=== PATIENT | female | born 1930 | race African-American/Black ===

== ENCOUNTER 2017-12-24 02:42 | Inpatient (IN) | payer MEDICARE, OTHER ==
[2017-12-24 03:17] LABS: pH, Arterial 7.16 (7.35-7.45)
[2017-12-24 03:18] LABS: Base Excess (BEa) -9.4 mEq/L (-2.0 to +3.0); CO2 Tension 54.6 mmHg (35.0-45.0); O2 Tension (PaO2) 393.2 mmHg (> 60.0)
[2017-12-24 03:19] LABS: Hemoglobin (Hb) 9.3 g/dL (12.0-16.0)
[2017-12-24 03:20] LABS: Analyzer IN Cardio ER; Calcium, Ionized 1.1 mmol/L (1.12-1.30); Puncture Site LRA
[2017-12-24 03:56] LABS: Eosinophils 14 % (0-10); Hemoglobin 8.7 g/dL (12.0-16.0); Lymphocytes 38 % (21-51); MDiff Complete? YES; Mean Corpuscular HGB CONC 30.3 g/dL (32.0-36.0); Mean Corpuscular Hemoglobin 27.1 pg (27.0-31.0); Mean Corpuscular Volume 89.2 fL (78.0-98.0); Mean Platelet Volume 8.4 fL (7.4-10.4); Monocytes 8 % (0-10); Neutrophil 38 % (42-75); Nucleated RBC 1 % (0); PLT Morphology Comment Appears Adequate; Platelet Count 208 thou/uL (130-400); RBC Distribution Width 15.9 % (11.5-14.5); Red Blood Cell (RBC) Count 3.23 mill/uL (4.20-5.40); White Blood Cell (WBC) Count 4.2 thou/uL (4.8-10.8)
[2017-12-24 03:57] LABS: ALT (SGPT) 31 U/L (8-55); AST (SGOT) 63 U/L (5-34); Albumin 3.3 g/dL (3.4-4.8); Alkaline Phosphatase 95 U/L (40-150); Anion Gap 11 mmol/L (10-20); BUN (Urea Nitrogen) 29 mg/dL (9.8-20.1); Bilirubin, Total 0.3 mg/dL (0.2-1.2); CK (CPK) 50 U/L (29-168); Calc. Creatinine Clearance 0 mL/min (70-130); Calcium 8.4 mg/dL (7.8-10.44); Carbon Dioxide 24 mmol/L (23-31); Chloride 113 mmol/L (98-107); Estimated GFR-MDRD 38; Globulin 2.6 g/dL (2.4-3.5); Glucose 218 mg/dL (83-110); Lipase 208 U/L (8-78); Potassium 5.3 mmol/L (3.5-5.1); Protein, Total 5.9 g/dL (6.0-8.3); Sodium 143 mmol/L (136-145)
[2017-12-24 04:01] LABS: Troponin I Less than 0.010 ng/mL (< 0.028)
[2017-12-24 05:46] LABS: Bilirubin Negative (Negative); Blood, Urine Negative (Negative); Clarity CLEAR (Clear); Glucose, Urine (Dipstick) 250 mg/dL (Negative); Leukocyte Negative (Negative); Nitrite Negative (Negative); Protein, Urine (Dipstick) 100 mg/dL (Neg-Trace); Specific Gravity, Urine 1.036 (1.002-1.036); Urobilinogen 0.2 mg/dL (0.2-1.0); pH, Urine 6.5 (5.0-9.0)
[2017-12-24 05:49] LABS: Bacteria/HPF None Seen HPF (None Seen); Hyaline Casts/LPF 4-6 HYALINE CAST LPF (0-3 Hyaline); Pathc Cast-AUWi Flag 0.72 (0-2.49); RBC/HPF 0-3 HPF (0-3)
[2017-12-24 05:53] LABS: Oval Fat Bodies/HPF None Seen HPF (None Seen); Renal Epithelial 0-3 HPF (0-3); Sperm/HPF None Seen HPF (None Seen); Transitional Epithelial 0-3 HPF (0-3); Trichomonas/HPF None Seen HPF (None Seen); Yeast-All Forms None Seen HPF (None Seen)
--- NOTE | 2017-12-24 07:20 | PDOC.FPRHP ---
- History of Present Illness Chief Complaint: dyspnea History of Present Illness: 87 yo AAF with PMH of COPD, HTN, HLD, CKD presents with dyspnea that started yesterday. Pt states she was at home with daughter, and daughter called ambulance. Pt felt nauseated and SOB, felt feverish. Pt denied headache, chest pain, palpitations, abdominal pain, or diarrhea. Pt admits to constipation. When ambulance arrived, pt O2 sat was 72 %. On arrival to ED, pt was satting 100 % and was transitioned to RA. She was tachycardic. She received 1 L NS, levaquin 750 mg, and aspirin 324 mg. - Allergies/Adverse Reactions Allergies Allergy/AdvReac Type Severity Reaction Status Date / Time No Known Allergies Allergy Verified 10/01/16 05:40 - Home Medications Medication Instructions Recorded Confirmed Type Ipratropium/Albuterol Sulfate 3 ml INH Q4H PRN 12/24/17 12/26/17 History [DuoNeb] Simvastatin [Zocor] 20 mg PO HS 12/24/17 12/26/17 History Albuterol Sulfate [Proair HFA] 2 puff INH BID 12/26/17 12/26/17 History Albuterol Sulfate [Ventolin Hfa] 8 gm IH QID PRN 12/26/17 12/26/17 History Docusate [Colace] 100 mg PO BID PRN 12/26/17 12/26/17 History Gabapentin 300 mg PO BID 12/26/17 12/26/17 History Lisinopril 10 mg PO DAILY 12/26/17 12/26/17 History buPROPion HCl [buPROPion HCl SR] 150 mg PO BID 12/26/17 12/26/17 History - History PMHx: CKD, HTN, COPD, osteoporosis, HLD, cataracts PSHx: none FHx: denied fam hx of cancer Social: current smoker, 35 PY history. Denied alcohol or drug use. - Review of Systems General: reports: fever/chills Eyes: reports: other (Poor vision due to catarrachts). denies: eye pain ENT: denies: nasal congestion, rhinorrhea Respiratory: reports: shortness of breath. denies: congestion Cardiovascular: denies: chest pain, palpitation, edema Gastrointestinal: reports: nausea, constipation. denies: vomiting, diarrhea, abdominal pain Skin: reports: lesions (dry spots on lower legs) Musculoskeletal: denies: pain Neurological: denies: numbness Psychological: denies: anxiety, depression - Vital signs BP 163/64, P 79, R 20, T 96.6, O2 sats 100% on RA. Wt 35 kg - Physical Exam Constitutional: NAD, awake, alert and oriented, other (cachectic) HEENT: normocephalic and atraumatic, PERRLA, other (poor dentition, dry mucous membranes) Neck: supple, no LAD Heart: RRR, normal S1/S2, no murmurs/rubs/gallops, pulses present, no edema Lungs: other (+ Retractions, fine crackles in lower lobes, poor air movement) Abdomen: soft, non-tender, bowel sounds present, no masses/distention Musculoskeletal: other (cacechtic) Neurological: CN II-XII intact Psychiatric: intact recent and remote memory FMR H&P: Results - Labs Result Diagrams: 12/26/17 05:08 12/26/17 05:08 Lab results: WBC 4.2 thou/uL (4.8-10.8) L 12/24/17 03:24 Hgb 8.7 g/dL (12.0-16.0) L 12/24/17 03:24 Hct 28.8 % (36.0-47.0) L 12/24/17 03:24 MCV 89.2 fL (78.0-98.0) 12/24/17 03:24 Plt Count 208 thou/uL (130-400) 12/24/17 03:24 ABG pH 7.16 (7.35-7.45) L* 12/24/17 03:10 ABG pCO2 54.6 mmHg (35.0-45.0) H 12/24/17 03:10 ABG pO2 393.2 mmHg (> 60.0) H 12/24/17 03:10 Sodium 143 mmol/L (136-145) 12/24/17 03:24 Potassium 5.3 mmol/L (3.5-5.1) H 12/24/17 03:24 Chloride 113 mmol/L (98-107) H 12/24/17 03:24 Carbon Dioxide 24 mmol/L (23-31) 12/24/17 03:24 BUN 29 mg/dL (9.8-20.1) H 12/24/17 03:24 Creatinine 1.57 mg/dL (0.6-1.1) H 12/24/17 03:24 Glucose 218 mg/dL (83-110) H 12/24/17 03:24 Lactic Acid 4.2 mmol/L (0.5-2.2) H* 12/24/17 03:23 Calcium 8.4 mg/dL (7.8-10.44) 12/24/17 03:24 Total Bilirubin 0.3 mg/dL (0.2-1.2) 12/24/17 03:24 AST 63 U/L (5-34) H 12/24/17 03:24 ALT 31 U/L (8-55) 12/24/17 03:24 Alkaline Phosphatase 95 U/L (40-150) 12/24/17 03:24 Creatine Kinase 50 U/L (29-168) 12/24/17 03:24 CK-MB (CK-2) 1.0 ng/mL (0-6.6) 12/24/17 03:24 B-Natriuretic Peptide 361.8 pg/mL (0-100) H 12/24/17 03:23 Serum Total Protein 5.9 g/dL (6.0-8.3) L 12/24/17 03:24 Albumin 3.3 g/dL (3.4-4.8) L 12/24/17 03:24 Lipase 208 U/L (8-78) H 12/24/17 03:24 Urine Ketones Negative mg/dL (Negative) 12/24/17 05:11 Urine Blood Negative (Negative) 12/24/17 05:11 Urine Nitrite Negative (Negative) 12/24/17 05:11 Ur Leukocyte Esterase Negative (Negative) 12/24/17 05:11 Urine RBC 0-3 HPF (0-3) 12/24/17 05:11 Urine WBC 4-6 HPF (0-3) H 12/24/17 05:11 Ur Squamous Epith Cells 7-10 HPF (0-3) H 12/24/17 05:11 Urine Bacteria None Seen HPF (None Seen) 12/24/17 05:11 - EKG Interpretation EKG: Tachycardia with PVCs FMR H&P: A/P - Plan 87 yo F with acute COPD exacerbation Acute COPD exacerbation -CXR neg, CTA shows emphysematous changes -ABG 7.16/54.6/393.2 -Started on duonebs q4 TAMAR -Levofloxacin 750 mg daily -PRN albuterol q2 hrs -prednisone 40 mg daily for 5 days Malnourished -Consult Nutrition -Diet- Consistent carbs -change per vaccine customer representative recommendations Tachycardia -EKG shows tachycardia and PVCs Elevated Lactic Acid -LA of 4.2 -Possibly due to hypoperfusion, no source of infection at this time (UA neg, CXR neg) -repeat LA @ 0730 Chronically Elevated Lipase -208 on admission -elevated prior (200s and 300s) -US abdomen negative, CTA read pending HTN -163/64 upon admisison -Start amlodipine 10 mg QD HLD -Continue pravastatin 20 mg QD CKD stage 3 -EGFR of 38 -Fluid resuscitation Hyperkalemia -May resolved with nebs -No peaked T-waves noted on EKG -Continue to monitor Constipation -senna Docusate Concern for DM -Blood sugar 218 on admission -Repeat accucheck today at noon Osteoporosis -Continue alendronate 5 mg daily code status: full code Kacy Jaffe, PGY-1 FMR H&P: Upper Level - Plan Date/Time: 12/24/17 1616 I, [], have evaluated this patient and agree with findings/plan as outlined by senior insight manager international resident. Pertinent changes/additions are listed here. Attending Addendum - Attending Addendum Date/Time: 12/26/17 1411 I personally evaluated the patient and discussed the management with Dr. Jaffe on 12/24/2017. I agree with the History, Examination, Assessment and Plan documented above with any addition or exceptions noted below.
[2017-12-24 07:33] LABS: Troponin I 0.078 ng/mL (< 0.028)
[2017-12-24] MEDS ORDERED: PROVENTIL INHALER 6.7 G (200 INHALATIONS) INH PRN (07:46)
[2017-12-24 07:59] LABS: Lactic Acid 1.1 mmol/L (0.5-2.2)
[2017-12-24] MEDS: Lactated Ringer's 1,000 ML IV SCH ×2 (08:27→20:18)
[2017-12-24] MEDS: Senokot S 8.6-50 MG TAB PO SCH ×2 (08:40→20:22)
[2017-12-24] MEDS: predniSONE 20 MG TAB PO SCH (08:40)
[2017-12-24] MEDS: Amlodipine 10 MG TAB PO SCH (08:41)
[2017-12-24 08:48] VITALS: BMI 14.1
[2017-12-24] MEDS ORDERED: Ondansetron HCl/PF 4 MG/2 ML Vial IVP PRN (09:17)
[2017-12-24] MEDS: Enoxaparin Sodium 40 MG/0.4 ML SYRINGE SC SCH (09:17)
[2017-12-24] MEDS ORDERED: Ondansetron ODT 4 MG TAB SL PRN (09:17)
--- NOTE | 2017-12-24 09:17 | RAD ---
PORTABLE CHEST: HISTORY: Dyspnea. COMPARISON: 11/06/16. FINDINGS: Lungs show hyperexpansion. Increased interstitial markings are seen bilaterally. No focal infiltrat e. Heart size is upper normal and stable. Aortic calcification is prominent. IMPRESSION: Chronic changes noted with hyperexpansion and increased interstitial markings. POS: [facility]
--- NOTE | 2017-12-24 10:02 | CT ---
PRELIMINARY REPORT/[facility]/EMERGENTY AFTER-HOURS PROCEDURE CT Angiography Chest With Intravenous Contrast EXAM DATE/TIME: 12/24/2017 4:10 AM CLINICAL HISTORY: 87 years old, female; Signs and symptoms; Dyspnea and shortness of breath; Patient HX: Er3; F85 prese nts via ems with dyspnea. Ems reports PT o2 sat was 72 on ra when they arrived. PT now at 100% on non rebreather TECHNIQUE: Axial computed tomographic angiography images of the chest with intravenous contrast using CT angiogr aphy protocol. MIP reconstructed images were created and reviewed. COMPARISON: No relevant prior studies available. FINDINGS: Pulmonary arteries: Normal. No pulmonary emboli. Aorta: Atherosclerotic aorta. Lungs: Severe emphysema. No evidence of pneumonia. Pleural space: Normal. No pneumothorax. No pleural effusion. Heart: Cardiomegaly. Mediastinum: Esophagus is unremarkable. Bones/joints: Unremarkable. No acute fracture. Soft tissues: Unremarkable. Lymph nodes: Unremarkable. No enlarged lymph nodes. Liver: Hepatic cysts. Gallbladder and bile ducts: Gallbladder is incompletely visualized; however, there is suggestion of c holelithiasis and possible pericholecystic fluid. Pancreas: Incompletely visualized 3.8 cm cyst between the inferior tail of pancreas in the anterior l eft kidney, incompletely visualized, potentially arising from either of these structures. Kidneys and ureters: Left renal cysts. IMPRESSION: 1. Severe emphysema. No evidence of pneumonia. 2. Gallbladder is incompletely visualized; however, there is suggestion of cholelithiasis and possibl e pericholecystic fluid. If there is clinical concern for possible cholecystitis, recommend ultrasoun d or IV contrast enhanced abdomen/pelvis CT. Thank you for allowing us to participate in the care of your patient. Dictated and Authenticated by: Max Burgos MD 12/24/2017 5:29 AM Central Time ([place] & [place]) FINAL REPORT CT PULMONARY ANGIOGRAM WITH IV CONTRAST AND 3D POSTPROCESSING: I agree with the preliminary report given by Dr. Max Burgos of [facility]. Cysts in the liver, left kidney, and pancreas are stable since exam of 10/01/16. POS: [facility]
[2017-12-24 10:46] LABS: Troponin I 0.075 ng/mL (< 0.028)
[2017-12-24 12:14] LABS: Analyzer IN Cardio OR
[2017-12-24 12:15] LABS: Actual Bicarbonate (HCO3v) 23 mEq/L (22-28); Base Excess -1.7 mEq/L (-2.0 to +3.0); Hemoglobin (Hb) 9.2 g/dL (11.7-16.1); pH (venous) 7.377 (7.32-7.43)
[2017-12-24 12:16] LABS: Chloride (ABG LAB) 106 mmol/L (98-106); Potassium - ABG Lab 4.7 mmol/L (3.70-5.30); Sodium 137.4 mmol/L (133-146)
[2017-12-24 12:17] LABS: Calcium, Ionized 1.09 mmol/L (1.16-1.32)
[2017-12-24 12:27] LABS: Glucose Accucheck Confirmation 118 mg/dl (83-110)
[2017-12-24] MEDS ORDERED: ISOVUE-370 76%-LOCM 1 ML ONE (14:53)
[2017-12-24 15:44] LABS: Troponin I 0.058 ng/mL (< 0.028)
[2017-12-24] MEDS: Pravastatin Sodium 20 MG TAB PO SCH (20:18)
[2017-12-25 05:39] LABS: #Lymphocytes 1.1 thou/uL (1.20-3.40); #Monocytes 0.6 thou/uL (0.11-0.59); %Basophils 0.4 % (0.0-1.0); %Eosinophils 0.5 % (0.0-10.0); %Lymphocytes 22.8 % (21.0-51.0); %Monocytes 13.1 % (0.0-10.0); %Neutrophils 63.1 % (42.0-75.0); Hemoglobin 7.9 g/dL (12.0-16.0); Mean Corpuscular HGB CONC 31.8 g/dL (32.0-36.0); Mean Corpuscular Hemoglobin 27.3 pg (27.0-31.0); Mean Corpuscular Volume 85.8 fL (78.0-98.0); Mean Platelet Volume 8.4 fL (7.4-10.4); Platelet Count 171 thou/uL (130-400); RBC Distribution Width 15.5 % (11.5-14.5); Red Blood Cell (RBC) Count 2.88 mill/uL (4.20-5.40); White Blood Cell (WBC) Count 4.8 thou/uL (4.8-10.8)
[2017-12-25 05:48] LABS: Anion Gap 12 mmol/L (10-20); BUN (Urea Nitrogen) 26 mg/dL (9.8-20.1); Calc. Creatinine Clearance 18 mL/min (70-130); Carbon Dioxide 23 mmol/L (23-31); Chloride 109 mmol/L (98-107); Estimated GFR-MDRD 45; Glucose 100 mg/dL (83-110); Potassium 3.9 mmol/L (3.5-5.1); Sodium 140 mmol/L (136-145)
[2017-12-25] MEDS: Amlodipine 10 MG TAB PO SCH (08:23)
[2017-12-25] MEDS: predniSONE 20 MG TAB PO SCH (08:23)
[2017-12-25] MEDS: Enoxaparin Sodium 40 MG/0.4 ML SYRINGE SC SCH (08:25)
[2017-12-25] MEDS: Lactated Ringer's 1,000 ML IV SCH (10:24)
[2017-12-25 13:38] LABS: Hemoglobin 9.4 g/dL (12.0-16.0)
--- NOTE | 2017-12-25 20:57 | PDOC.FM ---
- Subjective Subjective: Reported episode of tarry stools per nurse. Aside from that, denies feeling SOB , HORTON, weak. No other complaints. - Objective MAR Reviewed: Yes Vital Signs & Weight: Vital Signs (12 hours) Temp Pulse Resp BP Pulse Ox 12/25/17 18:29 98 16 98 12/25/17 15:40 98.0 F 96 18 137/64 94 L 12/25/17 14:31 86 16 12/25/17 11:47 93 30 H 12/25/17 11:10 97.7 F 91 16 156/70 H 96 Weight Admit Weight 39.8 kg Weight 38 kg I&O: 12/24/17 12/25/17 12/26/17 06:59 06:59 06:59 Intake Total 2140 Output Total 700 Balance 1440 Result Diagrams: 12/25/17 13:31 12/25/17 05:21 <Zari Mcclelland - Last Filed: 12/25/17 20:54> - Objective Vital Signs & Weight: Vital Signs (12 hours) Temp Pulse Resp BP BP Pulse Ox 12/26/17 13:12 98 16 12/26/17 09:25 150 H 30 H 126/60 96 12/26/17 09:03 84 163/72 H 12/26/17 08:10 97.8 F 84 18 163/72 H 97 12/26/17 08:00 97.8 F 84 18 12/26/17 07:36 97 12/26/17 07:34 93 12 12/26/17 03:30 98.9 F 83 16 151/72 H 93 L Weight Admit Weight 39.8 kg Weight 37.8 kg I&O: 12/25/17 12/26/17 12/27/17 06:59 06:59 06:59 Intake Total 2140 2260 Output Total 700 Balance 1440 2260 Result Diagrams: 12/26/17 05:08 12/26/17 05:08 <Christopher Martines - Last Filed: 12/26/17 14:07> Phys Exam - Physical Examination Constitutional: NAD cachectic appearing HEENT: sclera anicteric Neck: supple Respiratory: no wheezing decreased breath sounds b/l, no wheezing Gastrointestinal: soft, non-tender Musculoskeletal: no edema, pulses present Psychiatric: A&O x 3 Skin: no rash <Zari Mcclelland - Last Filed: 12/25/17 20:54> Dx/Plan (1) CKD (chronic kidney disease) stage 3, GFR 30-59 ml/min Code(s): N18.3 - CHRONIC KIDNEY DISEASE, STAGE 3 (MODERATE) Status: Acute (2) COPD exacerbation Code(s): J44.1 - CHRONIC OBSTRUCTIVE PULMONARY DISEASE W (ACUTE) EXACERBATION Status: Acute (3) HLD (hyperlipidemia) Code(s): E78.5 - HYPERLIPIDEMIA, UNSPECIFIED Status: Acute (4) HTN (hypertension) Code(s): I10 - ESSENTIAL (PRIMARY) HYPERTENSION Status: Acute - Plan Plan: 87 yo F with history of COPD here for acute COPD exacerbation 1. acute on chronic COPD exacerbation -Unsure of etiology, unable to extract information for medication usage at home -Continue duo nebs: space from q4 to q6 hrs and monitor how tolerates -Prednisone 40mg 2. Normocytic anemia 2/2 suspected GI bleed vs dilutional anemia -FOBT ordered due to reported tarry stools -Will repeat H/H at noon to see if stabilizes out -Currently patient asymptomatic and hemodynamically stable -Will consider transfusion if Hb <7 2. Malnourishment -Very low weight and BMI, lives at home with daughter -Seen by nutrition and will follow recs of Regular Diet + Ensure 3. HTN -Continue home meds 4. HLD -Continue home meds 5. CKD 3 -Continue to monitor, electrolytes and renal function stable 6. Osteoporosis -Continue home meds Diet: RD, ensure DVT ppx: Lovenox Plan discussed with Dr. Martines <Zari Mcclelland - Last Filed: 12/25/17 20:54> Attending Addendum - Attending Addendum Date/Time: 12/26/17 4719 I personally evaluated the patient and discussed the management with Dr. Mcclelland on 12/25/17. I agree with the History, Examination, Assessment and Plan documented above with any addition or exceptions noted below. <Christopher Martines - Last Filed: 12/26/17 14:07>
[2017-12-25] MEDS: Pravastatin Sodium 20 MG TAB PO SCH (21:31)
[2017-12-26] MEDS: Lactated Ringer's 1,000 ML IV SCH ×2 (02:30→12:53)
--- NOTE | 2017-12-26 05:28 | PDOC.FM ---
- Subjective Subjective: no acute events overnight. family expresses desire for home health. - Objective Vital Signs & Weight: Vital Signs (12 hours) Temp Pulse Resp BP Pulse Ox 12/26/17 03:30 98.9 F 83 16 151/72 H 93 L 12/26/17 00:00 74 18 97 12/25/17 23:00 98.8 F 92 20 155/67 H 93 L 12/25/17 19:50 98 F 96 20 128/68 96 12/25/17 18:29 98 16 98 Weight Admit Weight 39.8 kg Weight 37.8 kg I&O: 12/24/17 12/25/17 12/26/17 06:59 06:59 06:59 Intake Total 2140 1000 Output Total 700 Balance 1440 1000 Result Diagrams: 12/26/17 05:08 12/26/17 05:08 <Zari Mcclelland - Last Filed: 12/26/17 16:06> - Objective Vital Signs & Weight: Vital Signs (12 hours) Temp Pulse Pulse Pulse Resp BP BP 12/26/17 13:12 98 16 12/26/17 12:30 98.0 F 80 20 12/26/17 10:16 95 102 H 152/69 H 12/26/17 09:25 150 H 30 H 126/60 12/26/17 09:03 84 163/72 H 12/26/17 08:10 97.8 F 84 18 12/26/17 08:00 97.8 F 84 18 12/26/17 07:36 12/26/17 07:34 93 12 BP BP Pulse Ox 12/26/17 13:12 12/26/17 12:30 155/69 H 96 12/26/17 10:16 179/83 H 12/26/17 09:25 96 12/26/17 09:03 12/26/17 08:10 163/72 H 97 12/26/17 08:00 12/26/17 07:36 97 12/26/17 07:34 Weight Admit Weight 39.8 kg Weight 37.8 kg I&O: 12/25/17 12/26/17 12/27/17 06:59 06:59 06:59 Intake Total 2140 2260 Output Total 700 Balance 1440 2260 Result Diagrams: 12/26/17 05:08 12/26/17 05:08 <Vera Alfred - Last Filed: 12/26/17 16:39> Phys Exam - Physical Examination Constitutional: NAD Respiratory: no wheezing, no rales, no rhonchi, clear to auscultation bilateral decreased breath sounds Neurological: moves all 4 limbs Psychiatric: A&O x 3 <Zahra Mcclellande - Last Filed: 12/26/17 16:06> Dx/Plan (1) CKD (chronic kidney disease) stage 3, GFR 30-59 ml/min Code(s): N18.3 - CHRONIC KIDNEY DISEASE, STAGE 3 (MODERATE) Status: Acute (2) COPD exacerbation Code(s): J44.1 - CHRONIC OBSTRUCTIVE PULMONARY DISEASE W (ACUTE) EXACERBATION Status: Acute (3) HLD (hyperlipidemia) Code(s): E78.5 - HYPERLIPIDEMIA, UNSPECIFIED Status: Acute (4) HTN (hypertension) Code(s): I10 - ESSENTIAL (PRIMARY) HYPERTENSION Status: Acute - Plan Plan: 87 yo F with history of COPD here for acute COPD exacerbation 1. acute on chronic COPD exacerbation -Tolerating duo nebs q6hr, non-hypoxic on room air. Recommended target oxygen for COPD patients 88-92%, pt at 93% -Continue prednisone 40mg to 5 day completion -Continue levaquin to 5 day completion, will reducd to 500mg q48 hour for d/c dosage due to low creatinine clearance and body weight 2. Normocytic anemia 2/2 dilutional anemia -Repeat H/H showed improvement back to baseline. Acute anemia most like 2/2 to dilutional anemia-despite receiving low fluid rate at 75cc, very malnourished and small body habitus (BMI 13.5) -FOBT pending since pt. hasn't had BM 2. Malnourishment -Very low weight and BMI, lives at home with daughter -Continue nutrition recs with regular diet & ensure -Continue LR @75 -Follow up case management recs, patient could benefit from home health 3. HTN -BPs ranging around 150s, <150 rx age appropriate goal, will add lisinopril 5mg daily to discharge medications -Continue home meds 4. HLD -Continue home meds 5. CKD 3 -Continue to monitor, electrolytes and renal function stable 6. Osteoporosis -Continue home meds Diet: RD, ensure DVT ppx: Lovenox Status: PT saw her, able to ambulate recommended walking assist program. Dispo: Discharge to home today. F/u with home health Plan discussed with Dr. Alfred <Zari Mcclelland - Last Filed: 12/26/17 16:06> Attending Addendum - Attending Addendum Date/Time: 12/26/17 5359 I personally evaluated the patient and discussed the management with Dr. Mcclelland. I agree with the History, Examination, Assessment and Plan documented above with any addition or exceptions noted below. Pt is feeling better. Hemoglobin has stabilized. She will be discharged home and f/u with PCP. <Vera Alfred - Last Filed: 12/26/17 16:39>
[2017-12-26 05:36] LABS: #Lymphocytes 1.1 thou/uL (1.20-3.40); #Monocytes 0.8 thou/uL (0.11-0.59); #Neutrophils 4.1 thou/uL (1.40-6.50); %Basophils 0.2 % (0.0-1.0); %Eosinophils 0.3 % (0.0-10.0); %Lymphocytes 18.5 % (21.0-51.0); %Monocytes 12.4 % (0.0-10.0); %Neutrophils 68.6 % (42.0-75.0); Hemoglobin 8.4 g/dL (12.0-16.0); Mean Corpuscular HGB CONC 32.2 g/dL (32.0-36.0); Mean Corpuscular Hemoglobin 27.6 pg (27.0-31.0); Mean Corpuscular Volume 85.6 fL (78.0-98.0); Mean Platelet Volume 8.6 fL (7.4-10.4); Platelet Count 194 thou/uL (130-400); RBC Distribution Width 15.9 % (11.5-14.5); Red Blood Cell (RBC) Count 3.03 mill/uL (4.20-5.40)
[2017-12-26 05:39] LABS: Anion Gap 10 mmol/L (10-20); BUN (Urea Nitrogen) 24 mg/dL (9.8-20.1); Calc. Creatinine Clearance 20 mL/min (70-130); Calcium 8.9 mg/dL (7.8-10.44); Carbon Dioxide 26 mmol/L (23-31); Chloride 107 mmol/L (98-107); Estimated GFR-MDRD 52; Glucose 93 mg/dL (83-110); Potassium 4.1 mmol/L (3.5-5.1); Sodium 139 mmol/L (136-145)
[2017-12-26] MEDS: predniSONE 20 MG TAB PO SCH (09:03)
[2017-12-26] MEDS: Amlodipine 10 MG TAB PO SCH ×2 (09:03→09:04)
[2017-12-26] MEDS: Enoxaparin Sodium 40 MG/0.4 ML SYRINGE SC SCH (09:04)
--- NOTE | 2017-12-26 16:10 | PDOC.EVN ---
Event Note - Event Note Event Note: Pt. had episode of tachycardia into 150s while on toilet, straining for BP. Pulse returned back to baseline upon bed rest. Pulse has remained in 100s this afternoon but returned to below 100 before discharge.
--- NOTE | 2017-12-26 19:05 | PDOC.EVN ---
Event Note - Event Note Event Note: FOBT came back before discharge as positive. Due to severe anemia during stay, suspect for GI bleed. will keep pt overnight and consult GI in the morning. hemodynamically stable except for intermittent tachycardia.
[2017-12-26] MEDS: Pravastatin Sodium 20 MG TAB PO SCH (21:50)
[2017-12-27] MEDS: Lactated Ringer's 1,000 ML IV SCH ×2 (03:47→17:06)
--- NOTE | 2017-12-27 05:26 | PDOC.FM ---
- Objective MAR Reviewed: Yes Vital Signs & Weight: Vital Signs (12 hours) Temp Pulse Resp BP Pulse Ox 12/27/17 03:09 98.6 F 86 18 129/57 L 98 12/26/17 23:19 90 20 96 12/26/17 23:16 98.8 F 90 19 125/57 L 94 L 12/26/17 20:10 98.2 F 99 16 100 12/26/17 20:00 98.2 F 99 16 119/58 L 100 12/26/17 18:58 102 H 18 99 Weight Admit Weight 39.8 kg Weight 37.8 kg I&O: 12/25/17 12/26/17 12/27/17 06:59 06:59 06:59 Intake Total 2140 2260 Output Total 700 Balance 1440 2260 Result Diagrams: 12/27/17 05:21 12/27/17 05:21 <Zari Mcclelland - Last Filed: 12/27/17 08:52> - Subjective Subjective: Patient is resting comfortably and denies complaints this morning. - Objective Vital Signs & Weight: Vital Signs (12 hours) Temp Pulse Resp BP BP Pulse Ox 12/27/17 11:58 85 18 124/58 L 92 L 12/27/17 09:55 73 12/27/17 08:36 73 12/27/17 08:35 73 126/61 12/27/17 08:33 97.8 F 12/27/17 07:09 98 12/27/17 07:07 97.8 F 73 16 95 12/27/17 06:52 78 16 126/61 95 12/27/17 03:09 98.6 F 86 18 129/57 L 98 Weight Admit Weight 39.8 kg Weight 38.1 kg I&O: 12/26/17 12/27/17 12/28/17 06:59 06:59 06:59 Intake Total 2260 1140 Output Total 300 Balance 2260 840 Result Diagrams: 12/27/17 05:21 12/27/17 05:21 <Vera Alfred - Last Filed: 12/27/17 12:55> Phys Exam - Physical Examination Constitutional: NAD diffuse wheezing b/l, not in respiraotry distress <Zari Mcclelland - Last Filed: 12/27/17 08:52> Dx/Plan (1) CKD (chronic kidney disease) stage 3, GFR 30-59 ml/min Code(s): N18.3 - CHRONIC KIDNEY DISEASE, STAGE 3 (MODERATE) Status: Acute (2) COPD exacerbation Code(s): J44.1 - CHRONIC OBSTRUCTIVE PULMONARY DISEASE W (ACUTE) EXACERBATION Status: Acute (3) HLD (hyperlipidemia) Code(s): E78.5 - HYPERLIPIDEMIA, UNSPECIFIED Status: Acute (4) HTN (hypertension) Code(s): I10 - ESSENTIAL (PRIMARY) HYPERTENSION Status: Acute - Plan Plan: 87 yo F with history of COPD here for acute COPD exacerbation and suspected active GI bleed 1. Symptomatic anemia 2/2 suspected active GI bleeding +FOBT -normocytic anemia throughout admission, baseline this past year ranged 7.9-9.3 -hemodynamically stable -consulted GI, appreciate recs 2. COPD -continue duonebs, prednisone to day 5 -continue lower dose of levaquin to day 5 -non-hypoxic on RA 3. Malnourishment -RD + ensure -slight weight loss in hospital. pt reported not having appetite for several weeks -continue diet 4. HTN -added lisinopril 5mg daily yesterday -BPs today 5. HLD -Continue home meds 6. CKD 3 -creatnine improving, continue to monitor 7. Osteoporosis -Continue home meds 8. PT: evaluated and ambulating Diet: RD, ensure DVT ppx: Lovenox Dispo: Pending GI consult Plan discussed with Dr. Alfred <Zari Mcclelland - Last Filed: 12/27/17 08:52> Attending Addendum - Attending Addendum Date/Time: 12/27/17 9526 I personally evaluated the patient and discussed the management with Dr. Mcclelland. I agree with the History, Examination, Assessment and Plan documented above with any addition or exceptions noted below. GI is being consulted for anemia and positive FOBT. If they plan a procedure, she will stay overnight. If they plan outpt workup she is stable for discharge. <Vera Alfred - Last Filed: 12/27/17 12:55>
[2017-12-27 06:03] LABS: Anion Gap 10 mmol/L (10-20); BUN (Urea Nitrogen) 25 mg/dL (9.8-20.1); Calc. Creatinine Clearance 18 mL/min (70-130); Calcium 8.5 mg/dL (7.8-10.44); Carbon Dioxide 28 mmol/L (23-31); Chloride 107 mmol/L (98-107); Estimated GFR-MDRD 45; Glucose 93 mg/dL (83-110); Potassium 3.9 mmol/L (3.5-5.1); Sodium 141 mmol/L (136-145)
[2017-12-27 06:56] LABS: Hemoglobin 8.4 g/dL (12.0-16.0); Hypochromia SLIGHT = 6-15 cells (100X) (0-5/hpf); Lymphocytes 20 % (21-51); MDiff Complete? YES; Mean Corpuscular HGB CONC 32.3 g/dL (32.0-36.0); Mean Corpuscular Hemoglobin 27.5 pg (27.0-31.0); Mean Corpuscular Volume 85.3 fL (78.0-98.0); Mean Platelet Volume 8.7 fL (7.4-10.4); Monocytes 6 % (0-10); Neutrophil 74 % (42-75); PLT Morphology Comment Appears Adequate; Platelet Count 188 thou/uL (130-400); Red Blood Cell (RBC) Count 3.06 mill/uL (4.20-5.40); White Blood Cell (WBC) Count 5.5 thou/uL (4.8-10.8)
[2017-12-27] MEDS: predniSONE 20 MG TAB PO SCH (08:36)
[2017-12-27] MEDS: Amlodipine 10 MG TAB PO SCH (08:36)
[2017-12-27] MEDS ORDERED: Enoxaparin Sodium 30 MG/0.3 ML SYRINGE SC SCH (09:00)
[2017-12-27] MEDS ORDERED: Lisinopril 5 MG TAB PO SCH ×2 (09:00→09:04)
[2017-12-27] MEDS ORDERED: Lisinopril 2.5 MG TAB PO SCH (09:15)
--- NOTE | 2017-12-27 11:09 | PQF ---
CLINICAL DOCUMENTATION IMPROVEMENT CLARIFICATION FORM: ICD-10 Updated PLEASE DO AN ADDENDUM TO THE PROGRESS NOTE WITH ANY DOCUMENTATION UPDATES OR ADDITIONS AND CARRY THROUGH TO DC SUMMARY. THANK YOU. Date: 12/27/17 ATTN: DR. MORAN Please exercise your independent, professional judgment in responding to the clarification form. Clinical indicators are provided on the bottom of this form for your review Please check appropriate box(s): [ X] Protein Calorie Malnutrition: [ ] Mild [ ] Moderate [X ] Severe [ ] Other Malnutrition (please specify) __ [ ] Underweight without malnutrition [ ] Cachexia [ ] Other diagnosis [ ] Unable to determine In addition, please specify: Present on Admission (POA): [ X ] Yes [ ] No [ ] Unable to determine CLINICAL INDICATORS - SIGNS / SYMPTOMS / LABS DIETARY NOTE 12/24: "RD OBSERVED SEVERE MUSCLE WASTING TO TEMPLES, CLAVICLES, SHOULDERS AND THIGHS AND SEVERE FAT LOSS TO TRICEPS, RIB CAGE, ORBITAL FAT PAD AND DORSAL INTEROSSEI. SHE REPORTS DECREASED APPETITE OVER THE PAST 2 WEEKS." BMI 14.1 RISKS: CHRONIC ILLNESS ADVANCED AGE TREATMENT: DIETARY CONSULT RECOMMENDATIONS FOR NUTRITIONAL SUPPLEMENTS PER DIETARY NOTE 12/24 Moderate Malnutrition (in acute illness) Energy Intake: <75% of estimated energy requirement for > 7 days Weight Loss: 1-2%/1 week; 5%/ 1 month; 7.5%/3 months Other: mild body fat loss; mild muscle mass loss; mild fluid accumulation; Severe Malnutrition (in acute illness) Energy Intake: < 50% of estimated energy requirement for > 5 days Weight Loss: >1-2%/1 week; >5%/1 month; >7.5%/3 months Other: moderate body fat loss; moderate muscle mass loss; moderate- severe fluid accumulation; measurably reduced sales assistant strength Moderate Malnutrition (in chronic illness) [employer] Winform ViewerEnergy Intake: <75% of estimated energy requirement for >1 month Weight Loss: 5%/1 month; 7.5%/3 months; 10%/6 months; 20%/1 year Other: mild body fat loss; mild muscle mass loss; mild fluid accumulation Severe Malnutrition (in chronic illness) Energy Intake: <75% of estimated energy requirement for >1 month Weight Loss: >5%/1 month; >7.5%/3 months; >10%/6 months; >20%/1 year Other: severe body fat loss; severe muscle mass loss; severe fluid accumulation ; measurably reduced sales assistant strength (This form is maintained as a part of the permanent medical record) 2014 [employer]. All Rights Reserved [email or web address] Office: [phone] [facility]
--- NOTE | 2017-12-27 11:26 | PQF ---
CLINICAL DOCUMENTATION IMPROVEMENT CLARIFICATION FORM: ICD-10 Updated PLEASE DO AN ADDENDUM TO THE PROGRESS NOTE WITH ANY DOCUMENTATION UPDATES OR ADDITIONS AND CARRY THROUGH TO DC SUMMARY. THANK YOU. DATE: 12/27/17 ATTN: DR. MORAN Please exercise your independent, professional judgment in responding to the clarification form. Clinical indicators are provided on the bottom of this form for your review Please check appropriate box(s): [ X] Acute Respiratory Failure: [ X] with Hypoxia[ X ] with Hypercapnia [ ] Acute On Chronic Respiratory Failure: [ ] with Hypoxia [ ] with Hypercapnia [ ] Acute Respiratory Failure due to: (etiology) [ ] Acute Respiratory Insufficiency following (if applicable): [ ] trauma [ ] surgery [ ] Chronic Respiratory Failure only [ ] with Hypoxia [ ] with Hypercapnia [ ] Hypoxia [ ] Other diagnosis [ ] Unable to determine In addition, please specify: Present on Admission (POA): [ ] Yes [ ] No [ ] Unable to determine For continuity of documentation, please document condition throughout progress notes and discharge summary. Thank You. CLINICAL INDICATORS - SIGNS / SYMPTOMS / LABS ER NOTE: "EMS REPORTS PT SAT WAS 72 ON RA" PULSE 150 12/24 ABG PCO2: 54.6 / ABG PH 7.16 RISKS: COPD EXACERBATION CHRONIC ILLNESS TREATMENT: NONREBREATHER MASK DUONEBS (12/26-PRESENT) PREDNISONE (12/24-PRESENT) (This form is maintained as a part of the permanent medical record) 2014 [employer]. All Rights Reserved [email or web address] [email or web address] Office: [phone] [facility]
[2017-12-27] MEDS: Pravastatin Sodium 20 MG TAB PO SCH (20:46)
--- NOTE | 2017-12-28 | CON ---
DATE OF CONSULTATION: 12/27/2017 REASON FOR CONSULTATION: Anemia. HISTORY OF PRESENT ILLNESS: Ms. Gross is an 87-year-old female who was hospitalized for COPD exace rbation. She had been here at the end of October for a COPD exacerbation as well. She is on home stero ids. Apparently, here at this admission, as part of her anemia, she was evaluated with a Hemoccult t hat was positive. Talking with the patient, she denies any overt melena, hematochezia, or hematemesi s. Nurses have noted she has had brown stools. She has been anemic for some time with a hemoglobin of 11.4 back in 2013; 10.8 in 09/2016; 9.2 in 10/2016; and since that time, she has run between 8 and 9 with her hemoglobin on this admission fluctuating between 7.9 and 8.4. She did have some iron acosta dies drawn back in 2016, at which time she had low iron at 49, TIBC was 275. Her ferritin was normal at 84. She has had a normal albumin and protein with no significant globulin gap. She has had a no rmal folate and B12 as well. Her renal function has been pretty stable. In talking with the patient, she lives here in [place]. We are not able to get much of a history from her. She states that she does not eat a lot and she feels she is having difficulty getting her wind. She denies any dyspepsia, abdominal pain or shortness of breath at this point in time. She has no nausea, vomiting, dysphagia, or odynophagia. She does note that she may have had some weight loss in the past month about 5 pounds and she thought that some of the doctor in clinic told her. In 08/2016, she was seen for cholelithiasis and possible choledocholithiasis. She has [address] She had mildly elevated AST and ALT at that time. At that time, she was asymptomatic and with h er COPD, they decided not to proceed. She was seen in followup in clinic and still decided not to rivers ve any procedures done. This admission, it seems her LFTs have been normal. This admission, she had a CAT scan, CTA that showed severe emphysema with no pneumonia, cholelithiasis, and possible perich olecystic fluid. PAST MEDICAL HISTORY: COPD with 2 admissions for exacerbation in 2 months, chronic kidney disease, h ypertension, COPD, osteoporosis, cataracts. PAST SURGICAL HISTORY: None. There is some remote history of ulcer disease, but I do not see anythi ng documented here. It is mentioned in Dr. Bianchi's consultation note from last year. It is unclear w hat that is based on. ALLERGIES: None known. SOCIAL HISTORY: The patient has been smoking since she was 18. She does smoke, drink, or use drugs. MEDICATIONS: Home Medications: Prednisone, bupropion, Zocor, lisinopril, levofloxacin, gabapentin, Colace, ProAir. MEDICATIONS HERE: ProAir, DuoNeb, Fosamax, Norvasc, Lovenox, , Levaquin, Zestril, Pravachol, pr ednisone. REVIEW OF SYSTEMS: Negative for dysphagia or odynophagia. Negative for abdominal pain. She states she has some very mild nausea and appetite comes and goes. She denies any chest pain. She remains s hort of breath most of the time. She does report weight loss. LABORATORY DATA: White count 4.5, hemoglobin 8.4, platelet count 188. Iron studies as per HPI. On admission, the patient had a pH of 7.31; O2 sat was in the 70s to 80s on arrival, which improved. So dium 143, potassium 5.3, BUN and creatinine are 29 and 1.5, glucose is 218, AST is 63, ALT is 31, alk chantell phosphatase is 95. PHYSICAL EXAMINATION: VITAL SIGNS: Pulse is 86, temperature is 97, blood pressure is 124/58. GENERAL: She is very thin. She is frail. She has got temporal wasting. NECK: Supple without adenopathy. LUNGS: Clear except for expiratory wheezing. HEART: Regular without clicks or murmurs. ABDOMEN: Soft, nontender, and scaphoid. There were no bruits auscultated. RECTAL: Yellow stool. ASSESSMENT: Anemia, likely multifactorial with borderline iron studies. She has heme-positive stool from this admission. Her anemia stretches back several years. She has multiple components that may contribute including her renal insufficiency. It is concerning that the relative anemia, especially in light of her severe COPD which often causes people to be . She has some risk factors for ul cer, one is that she has been on steroids for long time. She has not had any screening colonoscopies in the past. However, she is very high risk for endoscopy especially with recent exacerbation of he r emphysema is a risk for complications. The patient is equivocal on whether she wants to undergo an y procedures. I will call the patient's daughter and talk with her about this. I think if they deci de not to, I would place her on a PPI prophylactically. We are going to see her back in the office i n a few weeks to see how she is doing, and if her respiratory status has been stable for some time, c joseld always consider an outpatient endoscopy at the hospital with regard to her anemia.
[2017-12-28 04:18] VITALS: BP 154/67; TEMP 97.6
[2017-12-28] MEDS ORDERED: Lisinopril 2.5 MG TAB PO SCH (09:00)
--- NOTE | 2017-12-28 11:17 | DIS-2 ---
DATE OF ADMISSION: 12/24/2017 DATE OF DISCHARGE: 12/27/2017 ADMITTING ATTENDING: Dr. Christopher Martines. DISCHARGE ATTENDING: Dr. Vera Alfred. RESIDENT: Zari Mcclelland, PGY-1 CONSULTATIONS: GI, Dr. Olvin Bates. PROCEDURES: None. PRIMARY DIAGNOSES: Acute hypercapneic respiratory failure 2/2 acute COPD exacerbation, symptomatic (normocytic) anemia. SECONDARY DIAGNOSES: 1. Severe malnourishment. 2. Hypertension. 3. Hyperlipidemia. 4. Chronic kidney disease, 3. 5. Resolved hyperkalemia. 6. Constipation. 7. Osteoporosis. DISCHARGE MEDICATIONS: 1. Levaquin 500 mg p.o. every 2 days on two tabs. 2. Prednisone 40 mg p.o. daily almost 2 days. 3. Lisinopril 2.5 mg p.o. daily. 4. Simvastatin 20 mg p.o. at bedtime. 5. DuoNeb 3 mL inhalation q.4 hours p.r.n. for cough, short of breath, and wheezing. 6. Docusate 100 mg p.o. b.i.d. p.r.n. for constipation. 7. Ventolin HFA 8 gram inhalation 4 times daily p.r.n., short of breath or wheezing. 8. Bupropion 150 mg p.o. b.i.d. DISCONTINUED MEDICATIONS: None. HISTORY OF PRESENT ILLNESS AND HOSPITAL COURSE: Ms. Josefina Gross is a pleasant 87-year-old female with past medical history of COPD, who was brought in by EMS with an inital O2 saturation on 72%. She quickly reached 100% on nonrebreather in the ED. Chest x-ray and CT scan were consistent with severe emphysema and ABG showed primary respiratory acidosis. Patient was admitted and started on DuoNebs, oral prednisone, and levaquin with rapid clinical improvement becoming non-hypoxemic on room air the next day. During her course in the hospital, she experienced symptomatic anemia with a next day drop in her Hb from 8.7 to 7.9. Follow up FOBT was positive. GI was consulted due to concern for active bleeding with pt. remaining vitally stable at htis time. They recommended against in-hospital colonoscopy due to concern for complications due to recent COPD exacerbation. On discharge, patient was nonhypoxic on room air and vitally stable. Of note, patient's blood pressures reached 162/67 so lisinopril 2.5 mg p.o. daily was added to her daily regimen medication with adequate control. In addition, patient appeared cachectic with extremely low BMI on admission. Nutrition was consulted and recommended regular diet with Ensure supplement. DISPOSITION: Stable. DISCHARGE INSTRUCTIONS: 1. Location: Home with family. 2. Diet: Regular diet. 3. Activity: Ad-chay. 4. Followup: Please follow up with Dr. Ordonez in 3-7 days. Please follow up with GI (Dr. Bates) in 2-3 weeks for assessment of outpatient colonoscopy. NILSON
--- NOTE | 2017-12-31 10:40 | EKG ---
Test Reason : SOB Blood Pressure : / mmHG Vent. Rate : 135 BPM Atrial Rate : 064 BPM P-R Int : 000 ms QRS Dur : 096 ms QT Int : 316 ms P-R-T Axes : 000 071 255 degrees QTc Int : 474 ms Supraventricular tachycardia with frequent Premature ventricular complexes Septal infarct , age undetermined Marked ST abnormality, possible inferior subendocardial injury Abnormal ECG Confirmed by ARIELA COLON MD ([id number]), book or script editor SCOOTER LENTZ ([id number]) on 12/31/2017 10:39:52 AM Referred By: DARLENE Confirmed By:ARIELA COLON MD
== END 2017-12-27 21:49 | disposition home or self-care (01) | DRG 190 ==
LOC: ERS 02:42 → 2NO 08:16 → OBSVTOIN 12-26 17:37
PROVIDERS: ADMIT Family Medicine; ATTEND Family Medicine
DX: J44.1 Chronic obstructive pulmonary disease with (acute) exacerbation (principal); J96.01 Acute respiratory failure with hypoxia; E43 Unspecified severe protein-calorie malnutrition; J96.02 Acute respiratory failure with hypercapnia; Z68.1 Body mass index [BMI] 19.9 or less, adult; I12.9 Hypertensive chronic kidney disease with stage 1 through stage 4 chronic kidney disease, or unspecified chronic kidney disease; N18.3 Chronic kidney disease, stage 3 (moderate); M81.0 Age-related osteoporosis without current pathological fracture; D64.9 Anemia, unspecified; E78.5 Hyperlipidemia, unspecified; K59.00 Constipation, unspecified; E87.5 Hyperkalemia; E11.22 Type 2 diabetes mellitus with diabetic chronic kidney disease; F17.210 Nicotine dependence, cigarettes, uncomplicated; Z87.11 Personal history of peptic ulcer disease
CPT/HCPCS: 36415; 36416; 51702; 71045; 71275; 80048; 80053; 81003; 81015; 82274; 82550; 82553; 82805; 83605; 83690; 83880; 84484; 85025; 87040; 93005; 94640; 94760; 96361; 96365; A4216; G8978-GP-CJ; G8979-GP-CJ; G8980-GP-CJ; G8987-GO-CI; G8988-GO-CI; G8989-GO-CI; J1650; J1956; J7120; J7506; J7620

== ENCOUNTER 2018-02-20 06:38 | Inpatient (IN) | payer MEDICARE, OTHER ==
[2018-02-20 07:11] LABS: Mean Corpuscular HGB CONC 29.8 g/dL (32.0-36.0); Mean Corpuscular Hemoglobin 25.7 pg (27.0-31.0); Mean Corpuscular Volume 86.4 fL (78.0-98.0); Mean Platelet Volume 9.5 fL (7.4-10.4); Platelet Count 240 thou/uL (130-400); RBC Distribution Width 15.9 % (11.5-14.5); Red Blood Cell (RBC) Count 3.12 mill/uL (4.20-5.40); White Blood Cell (WBC) Count 6.1 thou/uL (4.8-10.8)
[2018-02-20 07:39] LABS: Acanthocytes SLIGHT = 1-5 cells (100X) (None Seen); Anisocytosis SLIGHT = 6-15 cells (100X) (0-5/hpf); Elliptocytes SLIGHT = 2-5 cells (100X) (0-1/hpf); Eosinophils 5 % (0-10); Hypochromia SLIGHT = 6-15 cells (100X) (0-5/hpf); Lymphocytes 57 % (21-51); MDiff Complete? YES; Monocytes 7 % (0-10); Neutrophil 31 % (42-75); PLT Morphology Comment Appears Adequate
[2018-02-20 07:46] LABS: ALT (SGPT) 22 U/L (8-55); AST (SGOT) 44 U/L (5-34); Albumin 3.5 g/dL (3.4-4.8); Alkaline Phosphatase 78 U/L (40-150); Anion Gap 15 mmol/L (10-20); BUN (Urea Nitrogen) 26 mg/dL (9.8-20.1); Bilirubin, Total 0.3 mg/dL (0.2-1.2); Calc. Creatinine Clearance 0 mL/min (70-130); Calcium 9.1 mg/dL (7.8-10.44); Carbon Dioxide 22 mmol/L (23-31); Chloride 110 mmol/L (98-107); Estimated GFR-MDRD 37; Globulin 3.2 g/dL (2.4-3.5); Glucose 230 mg/dL (83-110); Potassium 4.8 mmol/L (3.5-5.1); Protein, Total 6.7 g/dL (6.0-8.3); Sodium 142 mmol/L (136-145)
--- NOTE | 2018-02-20 07:49 | RAD ---
PORTABLE CHEST 1 VIEW: HISTORY: An 87-year-old female with a history of shortness of breath. COMPARISON: 12/24/2017. FINDINGS: Hyperinflation and chronic lung changes noted bilaterally. Atherosclerosis of the aorta with ectasia . Old granulomatous disease. No confluent pneumonia, overt edema, or other acute process. IMPRESSION: Marked hyperinflation and chronic lung changes. No significant acute intrathoracic disease. POS: OFF
[2018-02-20 07:51] LABS: CKMB 1.3 ng/mL (0-6.6); Troponin I 0.018 ng/mL (< 0.028)
[2018-02-20 08:33] LABS: Actual Bicarbonate (HCO3a) 23.4 mEq/L (22-28); Analyzer IN Cardio ER; Base Excess (BEa) -2.5 mEq/L (-2.0 to +3.0); CO2 Tension 45.1 mmHg (35.0-45.0); Carboxyhemoglobin (COHb) 0.4 gm% (0.0-3.0); Hemoglobin (Hb) 8.5 g/dL (12.0-16.0); O2 Tension (PaO2) 66.6 mmHg (> 60.0); Potassium - ABG Lab 3.98 mmol/L (3.70-5.30); pH, Arterial 7.33 (7.35-7.45)
[2018-02-20 08:36] LABS: ALV-art Gradient 26.755 (0-20); Puncture Site RRA
[2018-02-20] MEDS ORDERED: Vancomycin HCl 750 MG in Sodium Chloride 0.9% 250 ML 250 ML IVPB SCH ×2 (09:00→22:00)
[2018-02-20 11:02] LABS: Bilirubin Negative (Negative); Blood, Urine Negative (Negative); Clarity CLEAR (Clear); Glucose, Urine (Dipstick) Negative (Negative); Leukocyte Negative (Negative); Nitrite Negative (Negative); Protein, Urine (Dipstick) Trace mg/dL (Neg-Trace); Specific Gravity, Urine 1.008 (1.002-1.036); Urobilinogen 0.2 mg/dL (0.2-1.0); pH, Urine 6.5 (5.0-9.0)
[2018-02-20] MEDS ORDERED: Piperacillin/Tazobactam 4.5 GM VIAL ONE (11:28)
[2018-02-20 11:31] LABS: Lactic Acid 2.2 mmol/L (0.5-2.2)
[2018-02-20] MEDS ORDERED: Acetaminophen 325 MG TAB PO PRN (11:47)
[2018-02-20] MEDS ORDERED: Ondansetron ODT 4 MG TAB PO PRN (11:47)
[2018-02-20 11:56] LABS: Troponin I 0.234 ng/mL (< 0.028)
[2018-02-20] MEDS ORDERED: Albuterol Sulfate 2.5 mg/3 ml Neb NEB PRN (12:04)
--- NOTE | 2018-02-20 12:12 | PDOC.FPRHP ---
- History of Present Illness Chief Complaint: SOB History of Present Illness: Pt is an 87 y/o F with HTN, COPD, HLD presenting for not "feeling well". EMS reports she initially complained of SOB and she received albuterol nebs x3, nitro, and Magnesium on the ride. Her BP was documented SPB >200 upon first seeing EMS. She states she began to feel unwell this morning and did have some SOB. She admits to associated Nausea. Denies CP, leg swelling, dysuria, bowel changes or fever. She is currently stating that she generally feels unwell, but has improved since getting to the ED. Per chart, she was on hospice, but switched to Palliative and I am unsure if she is still on that service per her history. - Allergies/Adverse Reactions Allergies Allergy/AdvReac Type Severity Reaction Status Date / Time No Known Allergies Allergy Verified 10/01/16 05:40 - Home Medications Medication Instructions Recorded Confirmed Type Ipratropium/Albuterol Sulfate 3 ml INH Q4H PRN 12/24/17 12/26/17 History [DuoNeb] Albuterol Sulfate [Proair HFA] 2 puff INH BID 12/26/17 12/26/17 History Albuterol Sulfate [Ventolin Hfa] 8 gm IH QID PRN 12/26/17 12/26/17 History Docusate [Colace] 100 mg PO BID PRN 12/26/17 12/26/17 History Lisinopril 2.5 mg PO DAILY #30 tablet 12/27/17 Rx - History PMHx: PSHx: FHx: Social: - Review of Systems General: reports: fatigue. denies: fever/chills, night sweats Eyes: denies: eye pain, vision changes ENT: denies: nasal congestion, rhinorrhea Respiratory: denies: cough, congestion Cardiovascular: denies: chest pain, palpitation, edema Gastrointestinal: reports: nausea. denies: vomiting, diarrhea, constipation Skin: denies: rashes, lesions Musculoskeletal: denies: pain, tenderness Psychological: denies: anxiety, depression - Vital signs BP: [] HR: [] RR: [] Tmax: [] Pox: []% on [] Wt: [] - Physical Exam Constitutional: NAD, awake, alert and oriented -Constitutional: thin and ill appearing HEENT: normocephalic and atraumatic, PERRLA Heart: RRR, normal S1/S2, no murmurs/rubs/gallops Lungs: no respiratory distress, good air movement -Lungs: B/l anterio exp wheezes Abdomen: soft, non-tender, bowel sounds present Neurological: no focal deficit, CN II-XII intact Skin: no rash/lesions, good turgor -Skin: skin dry throughout body Heme/Lymphatic: no unusual bruising or bleeding Psychiatric: normal mood and affect, good judgment and insight FMR H&P: Results - Labs Result Diagrams: 02/20/18 06:53 02/20/18 06:53 Lab results: WBC 6.1 thou/uL (4.8-10.8) 02/20/18 06:53 Hgb 8.0 g/dL (12.0-16.0) L 02/20/18 06:53 Hct 26.9 % (36.0-47.0) L 02/20/18 06:53 MCV 86.4 fL (78.0-98.0) 02/20/18 06:53 Plt Count 240 thou/uL (130-400) 02/20/18 06:53 ABG pH 7.33 (7.35-7.45) L 02/20/18 08:30 ABG pCO2 45.1 mmHg (35.0-45.0) H 02/20/18 08:30 ABG pO2 66.6 mmHg (> 60.0) H 02/20/18 08:30 Sodium 142 mmol/L (136-145) 02/20/18 06:53 Potassium 4.8 mmol/L (3.5-5.1) 02/20/18 06:53 Chloride 110 mmol/L (98-107) H 02/20/18 06:53 Carbon Dioxide 22 mmol/L (23-31) L 02/20/18 06:53 BUN 26 mg/dL (9.8-20.1) H 02/20/18 06:53 Creatinine 1.59 mg/dL (0.6-1.1) H 02/20/18 06:53 Glucose 230 mg/dL (83-110) H 02/20/18 06:53 Lactic Acid 2.2 mmol/L (0.5-2.2) 02/20/18 11:01 Calcium 9.1 mg/dL (7.8-10.44) 02/20/18 06:53 Total Bilirubin 0.3 mg/dL (0.2-1.2) 02/20/18 06:53 AST 44 U/L (5-34) H 02/20/18 06:53 ALT 22 U/L (8-55) 02/20/18 06:53 Alkaline Phosphatase 78 U/L (40-150) 02/20/18 06:53 CK-MB (CK-2) 1.3 ng/mL (0-6.6) 02/20/18 06:53 B-Natriuretic Peptide 295.6 pg/mL (0-100) H 02/20/18 06:53 Serum Total Protein 6.7 g/dL (6.0-8.3) 02/20/18 06:53 Albumin 3.5 g/dL (3.4-4.8) 02/20/18 06:53 Urine Ketones Negative mg/dL (Negative) 02/20/18 10:37 Urine Blood Negative (Negative) 02/20/18 10:37 Urine Nitrite Negative (Negative) 02/20/18 10:37 Ur Leukocyte Esterase Negative (Negative) 02/20/18 10:37 FMR H&P: A/P - Problem List (1) SIRS (systemic inflammatory response syndrome) Current Visit: Yes Status: Acute Code(s): R65.10 - SIRS OF NON-INFECTIOUS ORIGIN W/O ACUTE ORGAN DYSFUNCTION (2) CKD (chronic kidney disease) stage 3, GFR 30-59 ml/min Current Visit: No Status: Acute Code(s): N18.3 - CHRONIC KIDNEY DISEASE, STAGE 3 (MODERATE) (3) COPD exacerbation Current Visit: No Status: Acute Code(s): J44.1 - CHRONIC OBSTRUCTIVE PULMONARY DISEASE W (ACUTE) EXACERBATION (4) HLD (hyperlipidemia) Current Visit: No Status: Acute Code(s): E78.5 - HYPERLIPIDEMIA, UNSPECIFIED (5) HTN (hypertension) Current Visit: No Status: Acute Code(s): I10 - ESSENTIAL (PRIMARY) HYPERTENSION Qualifiers: - Plan 87 y/o F with HTN, COPD, HLD, malnutrition admitted to medical floor for the following problems: 1: Probable Sepsis: Pt meets SIRS criteria and in undergoing septic w/o, but does not currently have an identifiable source given clean UA and CXR. She has been fluid resuscitated with NS and placed on IVF. Blood/urine cultures obtained as well as influenza test. Her lactic acid was elevated at 4.6 then dropped to 2.2 and we will continue to follow. Lactic acid possibly related to dehydration if no infection is found. Broad spectrum antibiotics have been initiated. 2: COPD Exacerbation: Expiratory wheezes noted. Will start prednisone, albuterol , Advair and give her O2 to maintain sats >88%. 3. Hypertensive Urgency: On Lisinopril and will order PRN Hydralazine for SBP > 180. Has documented Hypotension in the past, but will increase dose or begin dual therapy as needed. 4: HLD: Not on a statin per her clinic notes. Will discuss and consider, but she may have limited benefit given her overall prognosis. 5: DM: Diagnosis per chart and elevated lana BG of 230, but not on any medication at home. Will order Accuchecks and A1c in AM. 6. Malnutrition: Regular diet with supplementation. Will revisit subject of palliative care with patient tomorrow. She was reportedly on Hospice in the past but was taken off. Attending Addendum - Attending Addendum Date/Time: 02/20/18 [id number] I personally evaluated the patient and discussed the management with Dr. Negron I agree with the History, Examination, Assessment and Plan documented above with any addition or exceptions noted below - Briefly this is an 87 yo female with h/o COPD, HTN, HLD who presented via EMS due to SOB. 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 Denies any fever, chills, vomiting, diarrhea. (+) nausea, decreased appetite. Afebrile BP 176/92 P95 RR28 94% RA Exam repeated by me and agree with resident's findings. Labs: WBC=6.1, H/H=8.0/26.9, Nrc=694, Diff=31N/57L, Na= 142 , K= 4.8, Xk=941, CO2=22, BUN/Cr=26/1.59, Yyep=264, U/A- negative, Lactic acid= 4.6, TCN=249. CXR- hyperinflated lungs; no infiltrate. A/P: 1: Probable Sepsis: Pt meets SIRS criteria and in undergoing septic w/o, but does not currently have an identifiable source. Blood/urine cultures obtained as well as influenza test. Her lactic acid was elevated at 4.6 then dropped to 2.2 after fluid resuscitation. No hypotension or evidence of end organ dysfunction. 2: COPD Exacerbation: Will start prednisone, duonebs, O2 to maintain sats >88%. 3. Hypertensive Urgency: Resume home meds and monitor. 4: Hyperglycemia- possible DM: monitor accuchecks and will check HgbA1c
[2018-02-20] MEDS ORDERED: Dextrose 50% Abboject 50 ML SYRINGE SLOW IVP PRN (12:53)
[2018-02-20] MEDS ORDERED: Dextrose 5% in Water 1,000 ML IV PRN (12:53)
[2018-02-20] MEDS ORDERED: Insulin Regular 300 UNITS/3 ML VIAL SC PRN (12:53)
[2018-02-20] MEDS ORDERED: Piperacillin/Tazobactam 2.25 GM in Sodium Chloride 0.9% 100 ML IVPB SCH ×2 (13:00→14:30)
[2018-02-20] MEDS ORDERED: VANCOMYCIN IVPB PRN ×2 (13:11→13:12)
[2018-02-20 13:18] LABS: Troponin I 0.295 ng/mL (< 0.028)
[2018-02-20] MEDS: Piperacillin/Tazobactam 2.25 GM in Sodium Chloride 0.9% 100 ML IVPB SCH ×2 (17:53→20:23)
[2018-02-20] MEDS: Sodium Chloride 0.9% 1,000 ML IV SCH (18:09)
[2018-02-20 22:00] LABS: CKMB 2.3 ng/mL (0-6.6)
[2018-02-20] MEDS ORDERED: VANCOMYCIN HCL IVPB SCH (22:00)
[2018-02-20] MEDS ORDERED: SODIUM CHLORIDE 0.9% IVPB SCH (22:00)
[2018-02-20 22:03] LABS: Troponin I 0.319 ng/mL (< 0.028)
[2018-02-21 00:39] LABS: #Lymphocytes 0.8 thou/uL (1.20-3.40); #Monocytes 0.5 thou/uL (0.11-0.59); #Neutrophils 2.3 thou/uL (1.40-6.50); %Basophils 0.3 % (0.0-1.0); %Eosinophils 0.1 % (0.0-10.0); %Lymphocytes 21.1 % (21.0-51.0); %Monocytes 13.1 % (0.0-10.0); %Neutrophils 65.4 % (42.0-75.0); Hemoglobin 6.9 g/dL (12.0-16.0); Mean Corpuscular HGB CONC 30.5 g/dL (32.0-36.0); Mean Corpuscular Hemoglobin 25.3 pg (27.0-31.0); Mean Corpuscular Volume 82.8 fL (78.0-98.0); Mean Platelet Volume 9.2 fL (7.4-10.4); Platelet Count 189 thou/uL (130-400); RBC Distribution Width 15.9 % (11.5-14.5); Red Blood Cell (RBC) Count 2.73 mill/uL (4.20-5.40); White Blood Cell (WBC) Count 3.6 thou/uL (4.8-10.8)
[2018-02-21 00:54] LABS: Hemoglobin A1c 5.2 % (4.0-6.0)
[2018-02-21 01:04] LABS: ALT (SGPT) 18 U/L (8-55); AST (SGOT) 27 U/L (5-34); Albumin 3.3 g/dL (3.4-4.8); Alkaline Phosphatase 61 U/L (40-150); Anion Gap 12 mmol/L (10-20); BUN (Urea Nitrogen) 28 mg/dL (9.8-20.1); Bilirubin, Total 0.3 mg/dL (0.2-1.2); Calc. Creatinine Clearance 16 mL/min (70-130); Calcium 8.5 mg/dL (7.8-10.44); Carbon Dioxide 23 mmol/L (23-31); Chloride 112 mmol/L (98-107); Estimated GFR-MDRD 38; Globulin 2.4 g/dL (2.4-3.5); Glucose 109 mg/dL (83-110); Potassium 4.5 mmol/L (3.5-5.1); Protein, Total 5.7 g/dL (6.0-8.3); Sodium 142 mmol/L (136-145)
[2018-02-21 01:06] LABS: Troponin I 0.326 ng/mL (< 0.028)
[2018-02-21] MEDS: Piperacillin/Tazobactam 2.25 GM in Sodium Chloride 0.9% 100 ML IVPB SCH ×4 (02:57→23:23)
[2018-02-21] MEDS: Sodium Chloride 0.9% 1,000 ML IV SCH ×3 (05:06→20:11)
--- NOTE | 2018-02-21 05:49 | PDOC.FM ---
- Subjective Subjective: Ms. Gross is resting comfortably in bed upon entering the room without complaint. Overnight she had 5 beats of wide complex tachycardia, asymptomatic. during our conversation she reported a feeling of warmth. She reports this has been happening occasionally. She denies CP, SOB, N/V/D, or decrease PO intake. - Objective Vital Signs & Weight: Vital Signs (12 hours) Temp Pulse Resp BP Pulse Ox 02/21/18 04:00 98.2 F 76 24 H 162/70 H 97 02/21/18 02:28 74 14 98 02/20/18 22:22 86 14 98 02/20/18 20:20 98.0 F 85 18 126/62 96 02/20/18 18:33 90 16 96 Weight Weight 37.784 kg Result Diagrams: 02/21/18 00:21 02/21/18 00:21 <Kevin Ness - Last Filed: 02/21/18 09:02> - Objective Vital Signs & Weight: Vital Signs (12 hours) Temp Temp Pulse Pulse Pulse Pulse Pulse 02/21/18 19:15 98.9 F 02/21/18 17:55 96.6 F L 165 H 100 102 H 97 02/21/18 17:36 81 02/21/18 17:16 81 02/21/18 16:20 02/21/18 16:00 02/21/18 15:51 98.7 F 02/21/18 15:36 98.4 F 02/21/18 14:54 78 02/21/18 11:30 78 02/21/18 11:01 97.9 F 78 02/21/18 10:01 73 02/21/18 09:12 02/21/18 09:10 76 Pulse Pulse Resp Resp BP BP BP 02/21/18 19:15 79 12 02/21/18 17:55 93 32 H 187/100 H 232/105 H 02/21/18 17:36 34 H 02/21/18 17:16 189/81 H 02/21/18 16:20 02/21/18 16:00 02/21/18 15:51 84 17 02/21/18 15:36 82 18 02/21/18 14:54 12 02/21/18 11:30 12 02/21/18 11:01 18 02/21/18 10:01 183/86 H 02/21/18 09:12 02/21/18 09:10 16 BP BP BP BP BP BP Pulse Ox 02/21/18 19:15 172/69 H 02/21/18 17:55 230/93 H 228/91 H 213/87 H 178/77 H 02/21/18 17:36 94 L 02/21/18 17:16 02/21/18 16:20 180/80 H 02/21/18 16:00 183/74 H 02/21/18 15:51 190/77 H 96 02/21/18 15:36 179/77 H 94 L 02/21/18 14:54 02/21/18 11:30 02/21/18 11:01 176/74 H 95 02/21/18 10:01 02/21/18 09:12 96 02/21/18 09:10 Pulse Ox Pulse Ox Pulse Ox Pulse Ox Pulse Ox 02/21/18 19:15 02/21/18 17:55 100 100 100 99 100 02/21/18 17:36 02/21/18 17:16 02/21/18 16:20 02/21/18 16:00 02/21/18 15:51 02/21/18 15:36 02/21/18 14:54 02/21/18 11:30 02/21/18 11:01 02/21/18 10:01 02/21/18 09:12 02/21/18 09:10 Weight Admit Weight 37.784 kg Weight 37.903 kg I&O: 02/20/18 02/21/18 02/22/18 06:59 06:59 06:59 Intake Total 1100 720 Balance 1100 720 Result Diagrams: 02/21/18 18:02 02/21/18 18:02 <Symone Solano - Last Filed: 02/21/18 21:01> Phys Exam - Physical Examination Constitutional: NAD dry skin and MMs Respiratory: no wheezing, no rales, no rhonchi, clear to auscultation bilateral Cardiovascular: RRR, no significant murmur, no rub Gastrointestinal: soft, non-tender, no distention Musculoskeletal: no edema, pulses present Neurological: non-focal, normal sensation, moves all 4 limbs Psychiatric: normal affect Skin: no rash <Kevin Ness - Last Filed: 02/21/18 09:02> Dx/Plan (1) SIRS (systemic inflammatory response syndrome) Code(s): R65.10 - SIRS OF NON-INFECTIOUS ORIGIN W/O ACUTE ORGAN DYSFUNCTION Status: Acute (2) COPD exacerbation Code(s): J44.1 - CHRONIC OBSTRUCTIVE PULMONARY DISEASE W (ACUTE) EXACERBATION Status: Acute (3) Volume depletion Code(s): E86.9 - VOLUME DEPLETION, UNSPECIFIED Status: Acute (4) HTN (hypertension) Code(s): I10 - ESSENTIAL (PRIMARY) HYPERTENSION Status: Acute (5) CKD (chronic kidney disease) stage 3, GFR 30-59 ml/min Code(s): N18.3 - CHRONIC KIDNEY DISEASE, STAGE 3 (MODERATE) Status: Acute - Plan Plan: SIRS - no source at this point: UA neg, initial CXR neg - BCx pending - hypothermia resolved - continue Vanc and zosyn - repeat daily CBC, WBC LA down trending, SOB - COPD exac. could be primary diagnosis, pending negative workup for infectious source - repeat EKG, trend troponin - Continue duonebs q4hr, prednisone, ventolin - monitor respiratory status Volume depletion - remains dry, decreased urine output - cont IVF 100ml/hr - one unit of blood should help HTN - continue home medications, hydralizine PRN - monitor closely for hypotension, DC all meds considering possible sepsis Anemia - possibly 2/2 CKD vs iron deficiency - type and cross 1 unit CKD - BUN/Cr at baseline - repeat daily BMP DVT ppx: lovenox GI ppx: none Code: Full Dispo: continue to evaluate for infectious cause, treat empirically, treat COPD exacerbation <Kevin Ness - Last Filed: 02/21/18 09:02> (1) SIRS (systemic inflammatory response syndrome) Code(s): R65.10 - SIRS OF NON-INFECTIOUS ORIGIN W/O ACUTE ORGAN DYSFUNCTION Status: Acute (2) CKD (chronic kidney disease) stage 3, GFR 30-59 ml/min Code(s): N18.3 - CHRONIC KIDNEY DISEASE, STAGE 3 (MODERATE) Status: Acute (3) COPD exacerbation Code(s): J44.1 - CHRONIC OBSTRUCTIVE PULMONARY DISEASE W (ACUTE) EXACERBATION Status: Acute (4) HLD (hyperlipidemia) Code(s): E78.5 - HYPERLIPIDEMIA, UNSPECIFIED Status: Acute (5) HTN (hypertension) Code(s): I10 - ESSENTIAL (PRIMARY) HYPERTENSION Status: Acute Qualifiers: <Symone Solano - Last Filed: 02/21/18 21:01> Attending Addendum - Attending Addendum Date/Time: 02/21/182054 I personally evaluated the patient and discussed the management with Dr. Ness I agree with the History, Examination, Assessment and Plan documented above with any addition or exceptions noted below- Patient without complaints. States that she is feeling better. States that SOB improved. Afebrile VSS. A/P: 1) COPD exacerbation- improved. Continue nebs, steroids. 2) HTN- will add additinal agent. 3) Anemia- most likely secondary to chronic disease. Will check iron studies FOBT and due to concurrent medical problems will transfuse pRBCs. 4) Elevated troponin- will consult cardiology. <Symone Solano - Last Filed: 02/21/18 21:01>
[2018-02-21 06:37] LABS: Troponin I 0.639 ng/mL (< 0.028)
[2018-02-21] MEDS ORDERED: Enoxaparin Sodium 40 MG/0.4 ML SYRINGE SC SCH ×2 (09:00→12:21)
[2018-02-21 09:32] LABS: Vancomycin, Random 4.6 ug/mL (See Comment)
[2018-02-21] MEDS ORDERED: Vancomycin HCl 750 MG in Sodium Chloride 0.9% 250 ML 250 ML IVPB SCH (10:00)
[2018-02-21] MEDS: predniSONE 20 MG TAB PO SCH (10:00)
[2018-02-21] MEDS: Lisinopril 5 MG TAB PO SCH (10:01)
[2018-02-21 10:33] LABS: Troponin I 0.887 ng/mL (< 0.028)
[2018-02-21] MEDS: Vancomycin HCl 750 MG in Sodium Chloride 0.9% 250 ML 250 ML IVPB SCH (11:08)
[2018-02-21 12:54] LABS: Iron 13 ug/dL (50-170); Iron Binding Capacity, Total 328 mcg/dL (265-497)
[2018-02-21 15:49] LABS: Iron 16 ug/dL (50-170); Iron Binding Capacity, Total 349 mcg/dL (265-497)
[2018-02-21] MEDS: hydrALAZINE 20 MG/ML VIAL SLOW IVP PRN (17:16)
[2018-02-21 18:15] LABS: Actual Bicarbonate (HCO3a) 18.5 mEq/L (22-28); Base Excess (BEa) -5.4 mEq/L (-2.0 to +3.0); CO2 Tension 30.6 mmHg (35.0-45.0); Calcium, Ionized 1.15 mmol/L (1.12-1.30); Carboxyhemoglobin (COHb) 0.8 gm% (0.0-3.0); Hemoglobin (Hb) 10.4 g/dL (12.0-16.0); O2 Tension (PaO2) 91.6 mmHg (> 60.0)
[2018-02-21 18:16] LABS: Puncture Site LRA
[2018-02-21 18:32] LABS: #Basophils 0.1 thou/uL (0.0-0.2); #Lymphocytes 0.9 thou/uL (1.20-3.40); #Monocytes 0.1 thou/uL (0.11-0.59); #Neutrophils 4.2 thou/uL (1.40-6.50); %Basophils 1.2 % (0.0-1.0); %Lymphocytes 16.5 % (21.0-51.0); %Neutrophils 80.4 % (42.0-75.0); Mean Corpuscular HGB CONC 29.7 g/dL (32.0-36.0); Mean Corpuscular Hemoglobin 24.8 pg (27.0-31.0); Mean Corpuscular Volume 83.6 fL (78.0-98.0); Mean Platelet Volume 9.8 fL (7.4-10.4); Platelet Count 257 thou/uL (130-400); RBC Distribution Width 15.8 % (11.5-14.5); Red Blood Cell (RBC) Count 4.02 mill/uL (4.20-5.40); White Blood Cell (WBC) Count 5.2 thou/uL (4.8-10.8)
[2018-02-21 18:38] LABS: CKMB 4.6 ng/mL (0-6.6)
[2018-02-21 18:40] LABS: Critical Call Chem Troponin I RESULT DECREASING; Troponin I 0.725 ng/mL (< 0.028)
--- NOTE | 2018-02-21 18:41 | PDOC.EVN ---
Event Note - Event Note Event Note: Jeanmarie hernadez called at approximately 1800 d/t pt with increased work of breathing , HR in the 160s during a copious bowel movement. Blood pressure 200s/120s. O2 saturation at 99-100% throughout code, afebrile. CBC, CMP, Trop, CXR, ABG ordered. 10 mg labetolol given, pt pressure decreased to baseline 160s/80s, pulse below 100. transferred to [facility], resume transufsion on arrival. unlikely transfusion reaction, possibly cardiac or anxiety related. Cardiology notified. <Kevin Ness - Last Filed: 02/21/18 18:37> Attending Addendum - Attending Addendum Date/Time: 02/21/18 2100 I personally evaluated the patient and discussed the management with Dr. Ness. I agree with the History, Examination, Assessment and Plan documented above with any addition or exceptions noted below. Patient discussed with night team Drs. Allan and Kelvin. She is currently in the IMCU and doing well. Denies complaints of dyspnea or chest pain. Repeat H/H shows more than appropriate response to her 1u PRBC transfusion. I anticipate that this event was triggered by the breathing treatment that resulted in some tachydysrhythmia. She has been evaluated by cardiology since her transfer to [facility]. Will monitor vitals through the night and anticipate transfer back to telemetry tomorrow if she has no further issues. <Fidencio Shi - Last Filed: 02/21/18 22:17>
[2018-02-21 18:42] LABS: ALT (SGPT) 78 U/L (8-55); AST (SGOT) 126 U/L (5-34); Albumin 3.8 g/dL (3.4-4.8); Alkaline Phosphatase 117 U/L (40-150); Anion Gap 16 mmol/L (10-20); BUN (Urea Nitrogen) 24 mg/dL (9.8-20.1); Bilirubin, Total 0.8 mg/dL (0.2-1.2); Calc. Creatinine Clearance 18 mL/min (70-130); Calcium 9.5 mg/dL (7.8-10.44); Carbon Dioxide 16 mmol/L (23-31); Chloride 111 mmol/L (98-107); Estimated GFR-MDRD 44; Globulin 3.5 g/dL (2.4-3.5); Glucose 199 mg/dL (83-110); Magnesium 1.9 mg/dL (1.6-2.6); Potassium 4.2 mmol/L (3.5-5.1); Protein, Total 7.3 g/dL (6.0-8.3); Sodium 139 mmol/L (136-145)
[2018-02-21 18:52] LABS: Anisocytosis SLIGHT = 6-15 cells (100X) (0-5/hpf); Burr Cells SLIGHT = 2-5 cells (100X) (0-1/hpf); Hypochromia SLIGHT = 6-15 cells (100X) (0-5/hpf); MDiff Complete? YES; Ovalocytes SLIGHT = 2-5 cells (100X) (0-1/hpf); PLT Morphology Comment Appears Adequate; Polychromasia SLIGHT = 2-3 cells (100X) (0-2/hpf); Schistocytes SLIGHT = 2-5 cells (100X) (0-1/hpf)
[2018-02-21] MEDS ORDERED: Diltiazem 125 MG in Sodium Chloride 0.9% 100 ML IVPB SCH (19:00)
--- NOTE | 2018-02-21 20:03 | RAD ---
PORTABLE CHEST: 02/21/18 INDICATION: Code green. The lungs appear clear. The peripheral right lung is partially obscured. No evidence of infiltrate or vascular congestion. Heart is upper normal size. Aortic calcification is prominent. Vascular marking s appear within normal range. IMPRESSION: No evidence of acute process. POS: AGW
--- NOTE | 2018-02-22 01:15 | CON ---
DATE OF CONSULTATION: 02/21/2018 HISTORY: Josefina Gross is an 87-year-old black female with severe COPD, hypertension, hyperlipidemia, and history of GI bleeding in the past. She is now admitted complaining of increased shortness of breath and at times having a systolic blood pressure of over 200. Due to her severe COPD, she has been on hospice in the past, but apparently that has been rescinded. PAST MEDICAL HISTORY: Hypertension, severe COPD, hyperlipidemia, cataracts, chronic kidney disease. MEDICATIONS: At home include albuterol inhalers, Colace 100 mg b.i.d. p.r.n., DuoNebs p.r.n., lisinopril unknown dose daily, omeprazole unknown dose daily. ALLERGIES: None. OPERATIONS: None. SOCIAL HISTORY: She stopped smoking 7 months ago. She states she smoked one half pack per day. She does not drink. REVIEW OF SYSTEMS: A 12-point review of systems is otherwise unremarkable. PHYSICAL EXAMINATION: VITAL SIGNS: Blood pressure 189/81, pulse of 81. HEENT: PERRL. NECK: Supple. CHEST: Reveals distant breath sounds. CARDIAC: S1, S2 normal, without any S3, S4 or murmurs. ABDOMEN: Normal bowel sounds, without tenderness, organomegaly. EXTREMITIES: Revealed no clubbing, cyanosis or edema. NEUROLOGIC: Grossly intact. SKIN: Warm and dry. LABORATORY DATA: EKG reveals normal sinus rhythm with poor R-wave progression. Hemoglobin 10.0, hematocrit 33.6, white count 5200, platelets 257,000, pH 7.40 , pCO2 of 30.6, pO2 of 91.6. Sodium 139, potassium 4.2, chloride 111, carbon dioxide 16, BUN 24, creatinine 1.38. Troponin I is up to 0.887. CK-MB x2 is normal. IMPRESSION: 1. Elevated troponin I, probably secondary to demand ischemia from her chronic obstructive pulmonary disease exacerbation as well as severe anemia with hemoglobin dropping to 6.9 earlier today. She denies any chest discomfort. 2. Chronic obstructive pulmonary disease exacerbation. 3. Probable gastrointestinal bleed. It is unclear if this has ever been fully evaluated. 4. Hypertension, poorly controlled. 5. Episode of supraventricular tachycardia, probable atrial fibrillation. 6. Former smoker. 7. Hyperlipidemia. 8. Chronic kidney disease stage 3. 9. Probable sepsis. PLAN: Patient currently is on IV antibiotics, was started on low dose Cardizem even though her rhythm has returned to normal at this time. Echocardiogram is still pending. Consideration should be given to Lexiscan Cardiolite testing once she is more stable. However, at this time, she is not a candidate for any invasive cardiac evaluation with her continued anemia. I will follow the patient with you. NILSON
--- NOTE | 2018-02-22 01:28 | PDOC.EVN ---
Event Note - Event Note Event Note: Residents were contacted at 0125 to see if ABG ordered during code green at 1730 was still needed. Patient has since been evaluated and no longer endorsing symptoms and vital signs are stable. Do not feel that ABG would be useful now that pt is asymptomatic, will continue to monitor and obtain if pt starts experiencing symptoms.
[2018-02-22 04:14] LABS: Hemoglobin 9.9 g/dL (12.0-16.0)
[2018-02-22] MEDS: Sodium Chloride 0.9% 1,000 ML IV SCH ×3 (05:22→20:21)
--- NOTE | 2018-02-22 05:39 | PDOC.FM ---
- Subjective Subjective: Ms. Gross is resting comfortably in bed, not dyspnic at this time. No complaints, denies continued diarrhea, new chest pain, or palpitations. - Objective Vital Signs & Weight: Vital Signs (12 hours) Temp Temp Pulse Pulse Pulse Pulse Pulse 02/22/18 04:00 99.2 F 79 02/22/18 02:55 80 02/21/18 23:34 98.9 F 78 02/21/18 21:52 71 02/21/18 20:00 02/21/18 19:15 98.9 F 02/21/18 17:55 96.6 F L 165 H 100 102 H 97 Pulse Pulse Resp Resp BP BP BP 02/22/18 04:00 18 02/22/18 02:55 18 02/21/18 23:34 12 02/21/18 21:52 18 02/21/18 20:00 02/21/18 19:15 79 12 02/21/18 17:55 93 32 H 187/100 H 232/105 H 230/93 H BP BP BP BP BP Pulse Ox Pulse Ox 02/22/18 04:00 171/70 H 99 02/22/18 02:55 98 02/21/18 23:34 163/77 H 100 02/21/18 21:52 99 02/21/18 20:00 99 02/21/18 19:15 172/69 H 02/21/18 17:55 228/91 H 213/87 H 178/77 H 100 Pulse Ox Pulse Ox Pulse Ox Pulse Ox 02/22/18 04:00 02/22/18 02:55 02/21/18 23:34 02/21/18 21:52 02/21/18 20:00 02/21/18 19:15 02/21/18 17:55 100 100 99 100 Weight Admit Weight 37.784 kg Weight 37.903 kg I&O: 02/20/18 02/21/18 02/22/18 06:59 06:59 06:59 Intake Total 1100 720 Balance 1100 720 Result Diagrams: 02/22/18 03:55 02/21/18 18:02 <Kevin Ness - Last Filed: 02/22/18 08:45> - Objective Vital Signs & Weight: Vital Signs (12 hours) Temp Pulse Resp BP BP Pulse Ox 02/22/18 13:25 98.4 F 82 16 140/64 98 02/22/18 10:59 98.1 F 17 161/73 H 100 02/22/18 10:48 79 16 02/22/18 09:06 81 182/119 H 02/22/18 09:05 81 182/112 H 02/22/18 08:00 99 02/22/18 07:29 81 16 02/22/18 07:28 97.8 F 86 18 170/72 H 100 02/22/18 04:00 99.2 F 79 18 171/70 H 99 Weight Admit Weight 37.784 kg Weight 38.555 kg I&O: 02/21/18 02/22/18 02/23/18 06:59 06:59 06:59 Intake Total 1100 2039 Output Total 950 Balance 1100 1089 Result Diagrams: 02/22/18 03:55 02/22/18 08:57 <Symone Solano - Last Filed: 02/22/18 15:06> Phys Exam - Physical Examination Constitutional: NAD HEENT: moist MMs Respiratory: no wheezing, no rales, no rhonchi poor air movement Cardiovascular: RRR, no significant murmur, no rub Gastrointestinal: soft, non-tender, no distention Musculoskeletal: no edema, pulses present Psychiatric: normal affect Skin: no rash Deviation from normal: dry and cracked skin <Kevin Ness - Last Filed: 02/22/18 08:45> Dx/Plan (1) COPD exacerbation Code(s): J44.1 - CHRONIC OBSTRUCTIVE PULMONARY DISEASE W (ACUTE) EXACERBATION Status: Acute (2) Volume depletion Code(s): E86.9 - VOLUME DEPLETION, UNSPECIFIED Status: Acute (3) SIRS (systemic inflammatory response syndrome) Code(s): R65.10 - SIRS OF NON-INFECTIOUS ORIGIN W/O ACUTE ORGAN DYSFUNCTION Status: Resolved (4) HTN (hypertension) Code(s): I10 - ESSENTIAL (PRIMARY) HYPERTENSION Status: Acute (5) CKD (chronic kidney disease) stage 3, GFR 30-59 ml/min Code(s): N18.3 - CHRONIC KIDNEY DISEASE, STAGE 3 (MODERATE) Status: Acute - Plan Plan: SOB - COPD exac, most likely primary diagnosis - troponin elevated initially, now trending down. most likely demand ischemia - acute event overnight, increasing SOB/pulse/BP with a bowel movement - Transferred to ICU, Cardizem drip ordered then DCd d/t pulse in the 70s - Continue duonebs q4hr, prednisone, ventolin - monitor respiratory status - cardiology consulted will follow, rec cardiolite stress when status improved Volume depletion - remains dry, urine output improved - cont IVF 100ml/hr SIRS, resolved - elevated BP, normal WBC, afebrile - UA, CXR, BCx all negative at this point - continue vanc and zosyn until final Bcx resulted - repeat daily CBC HTN - continue home medications, hydralizine PRN - DC cardizem drip, start amlodipine 5mg Anemia - possibly 2/2 CKD vs iron deficiency - s/p 1 unit PRBC, Hb increased to 9.9 CKD - BUN/Cr at baseline - repeat daily BMP DVT ppx: lovenox GI ppx: none Code: Full Dispo: cont abx until BCx final result, treat COPD exacerbation, transition back to tele <Kevin Ness - Last Filed: 02/22/18 08:45> (1) SIRS (systemic inflammatory response syndrome) Code(s): R65.10 - SIRS OF NON-INFECTIOUS ORIGIN W/O ACUTE ORGAN DYSFUNCTION Status: Resolved (2) CKD (chronic kidney disease) stage 3, GFR 30-59 ml/min Code(s): N18.3 - CHRONIC KIDNEY DISEASE, STAGE 3 (MODERATE) Status: Acute (3) COPD exacerbation Code(s): J44.1 - CHRONIC OBSTRUCTIVE PULMONARY DISEASE W (ACUTE) EXACERBATION Status: Acute (4) HLD (hyperlipidemia) Code(s): E78.5 - HYPERLIPIDEMIA, UNSPECIFIED Status: Acute (5) HTN (hypertension) Code(s): I10 - ESSENTIAL (PRIMARY) HYPERTENSION Status: Acute Qualifiers: <Symone Solano - Last Filed: 02/22/18 15:06> Attending Addendum - Attending Addendum Date/Time: 02/22/18 [id number] I personally evaluated the patient and discussed the management with Dr. Ness I agree with the History, Examination, Assessment and Plan documented above with any addition or exceptions noted below- Patient denies any complaints. Denies any SOB. Tolerating diet. Overnight events noted. Afebrile VSS. A/P: COPD exacerbation- resolving. Continue nebs/steroids. 2) Tachycardia- now resolved; on diltiazem for possible a-fib, continue to monitor. Appreciate cardiology assistance. 3) Elevated troponin- most likely demand ischemia; continue current meds. 4) Anemia- improved with transfusion. Continue to monitor. <Symone Solano - Last Filed: 02/22/18 15:06>
[2018-02-22] MEDS: Lisinopril 5 MG TAB PO SCH (09:05)
[2018-02-22] MEDS: Piperacillin/Tazobactam 2.25 GM in Sodium Chloride 0.9% 100 ML IVPB SCH (09:05)
[2018-02-22] MEDS: predniSONE 20 MG TAB PO SCH (09:05)
[2018-02-22] MEDS: Enoxaparin Sodium 30 MG/0.3 ML SYRINGE SC SCH (09:06)
[2018-02-22] MEDS: Amlodipine 5 MG TAB PO SCH (09:06)
[2018-02-22] MEDS: Aspirin 325 MG TAB PO SCH (09:06)
[2018-02-22] MEDS: Nebivolol HCl 2.5 MG TAB PO SCH (09:06)
[2018-02-22] MEDS: Vancomycin HCl 750 MG in Sodium Chloride 0.9% 250 ML 250 ML IVPB SCH (09:07)
[2018-02-22 09:22] LABS: Vancomycin, Trough 8.9 ug/mL
[2018-02-22 09:25] LABS: Anion Gap 14 mmol/L (10-20); BUN (Urea Nitrogen) 21 mg/dL (9.8-20.1); Calc. Creatinine Clearance 20 mL/min (70-130); Calcium 9.3 mg/dL (7.8-10.44); Carbon Dioxide 20 mmol/L (23-31); Chloride 110 mmol/L (98-107); Estimated GFR-MDRD 48; Glucose 102 mg/dL (83-110); Potassium 4.2 mmol/L (3.5-5.1); Sodium 140 mmol/L (136-145)
--- NOTE | 2018-02-22 10:57 | PQF ---
Date: 02-22-18 ATTN: DR. RUIZ BARRETO Please exercise your independent, professional judgment in responding to the clarification form. 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 day. Reports weighing 142 lbs years ago, has been 86-87 lbs in the last month. observed missing dentition, temporal wasting observed H&P: MALNUTRITION RISK FACTORS: H&P: HX HTN, COPD, HLD, SOB, NAUSEA, THIN AND ILL APPEARING , CKD 3, HTN URGENCY, DM H&P: MALNUTRITION TREATMENT: MATERIALS AND PROCESSES MANAGER CONSULT 02-21-18: 1. Recommend a Renal Low Protein diet, leaving off Heart Healthy component to promote intake 2. RD to add Suplena BID per NSP 3. Provide antiemetics PRN Moderate Malnutrition (in acute illness) Energy Intake: <75% of estimated energy requirement for > 7 days Weight Loss: 1-2%/1 week; 5%/ 1 month; 7.5%/3 months Other: mild body fat loss; mild muscle mass loss; mild fluid accumulation; Severe Malnutrition (in acute illness) Energy Intake: < 50% of estimated energy requirement for > 5 days Weight Loss: >1-2%/1 week; >5%/1 month; >7.5%/3 months Other: moderate body fat loss; moderate muscle mass loss; moderate- severe fluid accumulation; measurably reduced control cabinet assembler strength Moderate Malnutrition (in chronic illness) Energy Intake: <75% of estimated energy requirement for >1 month Weight Loss: 5%/1 month; 7.5%/3 months; 10%/6 months; 20%/1 year Other: mild body fat loss; mild muscle mass loss; mild fluid accumulation Severe Malnutrition (in chronic illness) Energy Intake: <75% of estimated energy requirement for >1 month Weight Loss: >5%/1 month; >7.5%/3 months; >10%/6 months; >20%/1 year Other: severe body fat loss; severe muscle mass loss; severe fluid accumulation ; measurably reduced control cabinet assembler strength (This form is maintained as a part of the permanent medical record) 2014 [employer]. All Rights Reserved LOBO [email or web address] Office: [phone] MTDD
--- NOTE | 2018-02-22 11:23 | PQF ---
DATE: 02-22-18 ATTN: DR. RUIZ BARRETO Please exercise your independent, professional judgment in responding to the clarification form. Clinical indicators are provided on the bottom of this form for your review Please check appropriate box(s) to clarify if the following diagnosis has been ruled in or ruled out: SEPSIS [ ] Ruled in diagnosis [ ] Continue to treat [ ] Resolved [ x] Ruled out diagnosis [ ] Other diagnosis [ ] Unable to determine In addition, please specify: Present on Admission (POA): [ ] Yes [ x] No [ ] Unable to determine For continuity of documentation, please document condition throughout progress notes and discharge summary. Thank You. CLINICAL INDICATORS - SIGNS / SYMPTOMS / LABS ER DX: PNEUMONIA, SEPTIC SHOCK H&P: PROBABLE SEPSIS, COPD EXACERBATION, HTN URGENCY, HYPERGLYCEMIA WBC: 02-21-18: 3.6 LACTIC ACID: 4.6, 2.2 RR: 02-21-18: 32, 24, 34 PULSE: 02-21-18: 102 RISK FACTORS: H&P: HX HTN, COPD, HLD, SOB, NAUSEA, CKD3, DIABETES, ANEMIA LIKELY FROM CHRONIC DISEASE ER DX: PNEUMONIA, SEPTIC SHOCK TREATMENTS: MAR: ZOSYN IV, NS IVF, VANCOMYCIN IV ER: ZOSYN, VANCOMYCIN, LEVAQUIN, IVF (This form is maintained as a part of the permanent medical record) 2014 [employer]. All Rights Reserved LOBO [email or web address] Office: [phone] [facility] CAN[facility]ER CENTERPrudencio
[2018-02-23 05:10] LABS: #Basophils 0.1 thou/uL (0.0-0.2); #Lymphocytes 0.9 thou/uL (1.20-3.40); #Monocytes 0.6 thou/uL (0.11-0.59); #Neutrophils 3.6 thou/uL (1.40-6.50); %Eosinophils 0.1 % (0.0-10.0); %Lymphocytes 17.9 % (21.0-51.0); %Monocytes 10.8 % (0.0-10.0); %Neutrophils 70.1 % (42.0-75.0); Hemoglobin 8.7 g/dL (12.0-16.0); Mean Corpuscular HGB CONC 30.9 g/dL (32.0-36.0); Mean Corpuscular Hemoglobin 25.7 pg (27.0-31.0); Mean Corpuscular Volume 83.2 fL (78.0-98.0); Platelet Count 193 thou/uL (130-400); RBC Distribution Width 16.1 % (11.5-14.5); Red Blood Cell (RBC) Count 3.39 mill/uL (4.20-5.40); White Blood Cell (WBC) Count 5.2 thou/uL (4.8-10.8)
[2018-02-23 05:36] LABS: ALT (SGPT) 41 U/L (8-55); AST (SGOT) 35 U/L (5-34); Alkaline Phosphatase 72 U/L (40-150); Anion Gap 10 mmol/L (10-20); BUN (Urea Nitrogen) 26 mg/dL (9.8-20.1); Bilirubin, Total 0.2 mg/dL (0.2-1.2); Calc. Creatinine Clearance 20 mL/min (70-130); Calcium 8.2 mg/dL (7.8-10.44); Carbon Dioxide 20 mmol/L (23-31); Chloride 117 mmol/L (98-107); Estimated GFR-MDRD 53; Globulin 2.6 g/dL (2.4-3.5); Glucose 94 mg/dL (83-110); Potassium 3.8 mmol/L (3.5-5.1); Protein, Total 5.6 g/dL (6.0-8.3); Sodium 143 mmol/L (136-145)
[2018-02-23] MEDS: Sodium Chloride 0.9% 1,000 ML IV SCH ×2 (05:59→17:09)
--- NOTE | 2018-02-23 05:59 | PDOC.FM ---
- Subjective Subjective: Ms. Gross has no complaints and no acute events overnight. She denies SOB, CP , or diarrhea. She feels ok to go home today. - Objective Vital Signs & Weight: Vital Signs (12 hours) Temp Pulse Resp BP Pulse Ox 02/23/18 04:00 97.9 F 75 20 153/69 H 100 02/23/18 02:09 69 14 100 02/22/18 22:46 76 14 99 02/22/18 20:21 98 02/22/18 20:16 98 F 78 20 154/67 H 99 02/22/18 18:37 73 16 97 Weight Admit Weight 37.784 kg Weight 36.378 kg I&O: 02/21/18 02/22/18 02/23/18 06:59 06:59 06:59 Intake Total 1100 2039 480 Output Total 950 Balance 1100 1089 480 Result Diagrams: 02/23/18 04:35 02/23/18 04:35 <Kevin Ness - Last Filed: 02/23/18 08:47> - Objective Vital Signs & Weight: Vital Signs (12 hours) Temp Pulse Resp BP BP Pulse Ox 02/23/18 10:19 100 02/23/18 10:16 78 16 100 02/23/18 08:54 76 173/74 H 02/23/18 08:53 76 173/74 H 02/23/18 08:50 98.0 F 76 24 H 173/74 H 98 02/23/18 06:29 73 16 100 02/23/18 04:00 97.9 F 75 20 153/69 H 100 02/23/18 02:09 69 14 100 Weight Admit Weight 37.784 kg Weight 36.378 kg I&O: 02/22/18 02/23/18 02/24/18 06:59 06:59 06:59 Intake Total 2039 1780 Output Total 950 Balance 1089 1780 Result Diagrams: 02/23/18 04:35 02/23/18 04:35 <Symone Solano - Last Filed: 02/23/18 11:47> Phys Exam - Physical Examination Constitutional: NAD HEENT: moist MMs Respiratory: no wheezing, no rales, no rhonchi diminished breath sounds Cardiovascular: RRR, no significant murmur, no rub Gastrointestinal: soft, no distention Musculoskeletal: no edema, pulses present Neurological: moves all 4 limbs Psychiatric: normal affect Skin: no rash <Kevin Ness - Last Filed: 02/23/18 08:47> Dx/Plan (1) COPD exacerbation Code(s): J44.1 - CHRONIC OBSTRUCTIVE PULMONARY DISEASE W (ACUTE) EXACERBATION Status: Acute (2) Volume depletion Code(s): E86.9 - VOLUME DEPLETION, UNSPECIFIED Status: Acute (3) SIRS (systemic inflammatory response syndrome) Code(s): R65.10 - SIRS OF NON-INFECTIOUS ORIGIN W/O ACUTE ORGAN DYSFUNCTION Status: Resolved (4) HTN (hypertension) Code(s): I10 - ESSENTIAL (PRIMARY) HYPERTENSION Status: Acute (5) CKD (chronic kidney disease) stage 3, GFR 30-59 ml/min Code(s): N18.3 - CHRONIC KIDNEY DISEASE, STAGE 3 (MODERATE) Status: Acute - Plan Plan: SOB - COPD exac, most likely primary diagnosis - troponin elevated initially, now trending down. most likely demand ischemia - no acute events overnight, NSR on tele - Continue duonebs q4hr, prednisone, ventolin - 100% O2 sat on RA - cardiac stress outpt -PT/OT to eval Volume depletion - urine output improved - IVF 100ml/hr SIRS, resolved - elevated BP, normal WBC, afebrile - UA, CXR, BCx all negative at this point -Blood cultures negative HTN - continue home medications, hydralizine PRN - DC cardizem drip, start amlodipine 5mg, bystolic Anemia - possibly 2/2 CKD vs iron deficiency - s/p 1 unit PRBC, Hb increased to 9.9 - monitor CBC CKD - BUN/Cr at baseline - monitor BMP DVT ppx: lovenox GI ppx: none Code: Full Dispo: stabilized, SOB/SIRS resolved, possible DC today <Kevin Ness - Last Filed: 02/23/18 08:47> (1) SIRS (systemic inflammatory response syndrome) Code(s): R65.10 - SIRS OF NON-INFECTIOUS ORIGIN W/O ACUTE ORGAN DYSFUNCTION Status: Resolved (2) CKD (chronic kidney disease) stage 3, GFR 30-59 ml/min Code(s): N18.3 - CHRONIC KIDNEY DISEASE, STAGE 3 (MODERATE) Status: Acute (3) COPD exacerbation Code(s): J44.1 - CHRONIC OBSTRUCTIVE PULMONARY DISEASE W (ACUTE) EXACERBATION Status: Acute (4) HLD (hyperlipidemia) Code(s): E78.5 - HYPERLIPIDEMIA, UNSPECIFIED Status: Acute (5) HTN (hypertension) Code(s): I10 - ESSENTIAL (PRIMARY) HYPERTENSION Status: Acute Qualifiers: <Symone Solano - Last Filed: 02/23/18 11:47> Attending Addendum - Attending Addendum Date/Time: 02/23/18 [id number] I personally evaluated the patient and discussed the management with Dr. Ness I agree with the History, Examination, Assessment and Plan documented above with any addition or exceptions noted below- Patient with episode of SOB, tachycardia this morning. Again associated with BM. Resolved spontaneously. Afebrile VSS. A/P: 1) Intermittent SOB and tachycardia- ?atrial arrhymias, frequent PVCs- will discuss with cardiology. 2) COPD exacerbation- resolved. <Symone Solano - Last Filed: 02/23/18 11:47>
[2018-02-23] MEDS: predniSONE 20 MG TAB PO SCH (08:53)
[2018-02-23] MEDS: Nebivolol HCl 2.5 MG TAB PO SCH (08:53)
[2018-02-23] MEDS: Amlodipine 5 MG TAB PO SCH (08:53)
[2018-02-23] MEDS: Aspirin 325 MG TAB PO SCH (08:54)
[2018-02-23] MEDS: Lisinopril 5 MG TAB PO SCH (08:54)
[2018-02-23] MEDS: Enoxaparin Sodium 30 MG/0.3 ML SYRINGE SC SCH (08:54)
[2018-02-23 11:48] VITALS: BMI 12.9
[2018-02-23] MEDS: hydrALAZINE 20 MG/ML VIAL SLOW IVP PRN (12:57)
[2018-02-24] MEDS ORDERED: Nebivolol HCl 5 MG TAB PO SCH (09:00)
[2018-02-24] MEDS: Amlodipine 5 MG TAB PO SCH (12:37)
[2018-02-24] MEDS: Sodium Chloride 0.9% 1,000 ML IV SCH (12:37)
[2018-02-24] MEDS: Enoxaparin Sodium 30 MG/0.3 ML SYRINGE SC SCH (12:38)
[2018-02-24] MEDS: Lisinopril 5 MG TAB PO SCH (12:38)
[2018-02-24] MEDS: Aspirin 325 MG TAB PO SCH (12:38)
[2018-02-24] MEDS: predniSONE 20 MG TAB PO SCH (12:38)
[2018-02-24 12:46] LABS: Anion Gap 11 mmol/L (10-20); BUN (Urea Nitrogen) 26 mg/dL (9.8-20.1); Calc. Creatinine Clearance 21 mL/min (70-130); Calcium 8.5 mg/dL (7.8-10.44); Carbon Dioxide 20 mmol/L (23-31); Chloride 114 mmol/L (98-107); Estimated GFR-MDRD 56; Glucose 83 mg/dL (83-110); Potassium 3.8 mmol/L (3.5-5.1); Sodium 141 mmol/L (136-145)
[2018-02-24 13:10] VITALS: BP 180/78; TEMP 98
--- NOTE | 2018-02-25 09:36 | DIS-2 ---
DATE OF ADMISSION: 02/20/2018 DATE OF DISCHARGE: 02/24/2018 RESIDENT: Kevin Ness DO. ADMITTING ATTENDING: Dr. Symone Solano. DISCHARGE ATTENDING: Dr. Symone Solano. CONSULTATIONS: Cardiology. PROCEDURES: Chest x-ray. Impression: No evidence of acute process. PRIMARY DIAGNOSIS: Chronic obstructive pulmonary disease exacerbation. Discharge medications: Duoneb 3mL INH Q4h prn Colace 100mg PO BID PRN Ventolin 8 gm IH QID PRN Proair 2 puff INH bid omeprazole 20 mg po daily lisinopril 5 mg po daily amlodipine 5 mg po daily asa 325 po daily bystolic 5 mg po daily prednison 40 mg po daily SECONDARY DIAGNOSES: 1. Volume depletion. 2. Systemic inflammatory response syndrome, resolved. 3. Hypertension. 4. Anemia. 5. Chronic kidney disease. HISTORY OF PRESENT ILLNESS AND HOSPITAL COURSE: The patient is an 87-year-old female with hypertension, COPD, and hyperlipidemia, presenting for not feeling well. EMS reports she initially complained of shortness of breath and received nebs, nitro and magnesium right in the ambulance. She was documented to have systolic blood pressures greater than 200. She has been feeling unwell for the past few days. She admits to some nausea. She denies any chest pain, leg swelling, dysuria, bowel changes or fever. She has recently been on hospice, but switched to palliative care, unsure of where she is at currently in that process. During her stay in the hospital , she had multiple codes called for tachycardia and shortness of breath associated with bowel movements. Workup each time was negative for cardiac cause including negative troponins, negative EKGs and cardio consult per Dr. Carter. No concern for lethal arrhythmia or other cardiopulmonary issues in regards to these episodes she was having. Her blood pressure medicines were increased with her pressures at goal before she was discharged. She was discharged on these home medicines and instructed to follow up with primary care for blood pressure check in the next couple of days. DISPOSITION: Stable. DISCHARGE INSTRUCTIONS: 1. Location: Home with home health. 2. Diet: Heart healthy. 3. Activity: As tolerated. 4. Follow up in [address] Ordonez. NILSON
== END 2018-02-24 15:41 | disposition home health service (06) | DRG 191 ==
LOC: ERS 06:38 → ERHOLD 10:51 → 2NO 17:07 → IMCU/EMU 02-21 18:37 → 2NO 02-22 13:13
PROVIDERS: ADMIT Family Medicine; ATTEND Family Medicine
PROC: 30233N1 Transfusion of Nonautologous Red Blood Cells into Peripheral Vein, Percutaneous Approach (ICD-10-PCS; principal; 2018-02-21)
DX: J44.1 Chronic obstructive pulmonary disease with (acute) exacerbation (principal); R65.10 Systemic inflammatory response syndrome (SIRS) of non-infectious origin without acute organ dysfunction; E46 Unspecified protein-calorie malnutrition; Z68.1 Body mass index [BMI] 19.9 or less, adult; I24.8 Other forms of acute ischemic heart disease; E78.5 Hyperlipidemia, unspecified; I12.9 Hypertensive chronic kidney disease with stage 1 through stage 4 chronic kidney disease, or unspecified chronic kidney disease; N18.3 Chronic kidney disease, stage 3 (moderate); E11.22 Type 2 diabetes mellitus with diabetic chronic kidney disease; I16.0 Hypertensive urgency; D64.9 Anemia, unspecified; E86.9 Volume depletion, unspecified; Z87.891 Personal history of nicotine dependence
CPT/HCPCS: 36415; 36416; 36430; 51701; 71045; 80048; 80053; 80202; 81003; 82274; 82553; 82805; 83036; 83540; 83550; 83605; 83735; 83880; 84484; 85014; 85018; 85025; 86850; 86900; 86901; 87040; 87086; 87324; 87449; 87804; 93005; 93010; 93306; 94640; 94760; 96365; 96366; 96367; 96368; 99406; G8978-GP-CL; G8979-GP-CJ; G8987-GO-CJ; G8988-GO-CI; J0360; J1650; J1956; J2543; J3370; J7050; J7506; J7620; P9016

== ENCOUNTER 2018-07-08 18:17 | Emergency (ER) | payer MEDICARE, OTHER ==
[2018-07-08 19:00] LABS: #Eosinphils 0.7 thou/uL (0.0-0.7); #Lymphocytes 1.7 thou/uL (1.20-3.40); #Monocytes 0.4 thou/uL (0.11-0.59); #Neutrophils 1.7 thou/uL (1.40-6.50); %Eosinophils 15.9 % (0.0-10.0); %Lymphocytes 37.4 % (21.0-51.0); %Monocytes 8.6 % (0.0-10.0); Hemoglobin 13.3 g/dL (12.0-16.0); Mean Corpuscular HGB CONC 30.4 g/dL (32.0-36.0); Mean Corpuscular Hemoglobin 29.8 pg (27.0-31.0); Mean Corpuscular Volume 98.2 fL (78.0-98.0); Mean Platelet Volume 9.8 fL (7.4-10.4); Platelet Count 171 thou/uL (130-400); RBC Distribution Width 15.6 % (11.5-14.5); Red Blood Cell (RBC) Count 4.45 mill/uL (4.20-5.40); White Blood Cell (WBC) Count 4.7 thou/uL (4.8-10.8)
[2018-07-08 19:16] LABS: ALT (SGPT) 20 U/L (8-55); AST (SGOT) 27 U/L (5-34); Albumin 4.4 g/dL (3.4-4.8); Alkaline Phosphatase 82 U/L (40-150); Anion Gap 16 mmol/L (10-20); BUN (Urea Nitrogen) 30 mg/dL (9.8-20.1); Bilirubin, Total 0.4 mg/dL (0.2-1.2); Calc. Creatinine Clearance 0 mL/min (70-130); Calcium 10.1 mg/dL (7.8-10.44); Carbon Dioxide 32 mmol/L (23-31); Chloride 101 mmol/L (98-107); Estimated GFR-MDRD 38; Globulin 3.3 g/dL (2.4-3.5); Glucose 132 mg/dL (83-110); Potassium 4.5 mmol/L (3.5-5.1); Protein, Total 7.7 g/dL (6.0-8.3); Sodium 144 mmol/L (136-145)
--- NOTE | 2018-07-08 19:36 | RAD ---
CHEST ONE VIEW: 07/08/18 HISTORY: Dyspnea. COMPARISON: Radiograph 02/21/18. FINDINGS: Heart size is enlarged. No pneumothorax. Pulmonary arteries are dilated. The lungs are hyperinflated. No acute osseous abnormality. Calcified subcarinal lymph nodes. IMPRESSION: Chronic findings. No acute intrathoracic abnormality. POS: [facility]
[2018-07-08] MEDS ORDERED: methylPREDNISolone Sod Succ/PF 125 MG/2 ML VIAL ONE (20:11)
[2018-07-08] MEDS ORDERED: Albuterol Sulfate 1.25 MG/3 ML NEB ONE (20:11)
== END 2018-07-08 21:29 | disposition home or self-care (01) ==
LOC: ERS 18:17
DX: J44.1 Chronic obstructive pulmonary disease with (acute) exacerbation (principal); I10 Essential (primary) hypertension; E78.00 Pure hypercholesterolemia, unspecified; Z87.891 Personal history of nicotine dependence; Z79.51 Long term (current) use of inhaled steroids; Z79.899 Other long term (current) drug therapy
CPT/HCPCS: 71045; 80053; 84484; 85025; 87804; 93005; 94640; 96374; J2930; J7620

== ENCOUNTER 2018-08-07 20:49 | Emergency (ER) | payer MEDICARE, OTHER ==
[2018-08-07 22:14] LABS: #Basophils 0.1 thou/uL (0.0-0.2); #Eosinphils 0.9 thou/uL (0.0-0.7); #Lymphocytes 1.6 thou/uL (1.20-3.40); #Monocytes 0.5 thou/uL (0.11-0.59); #Neutrophils 2.4 thou/uL (1.40-6.50); %Basophils 1.2 % (0.0-1.0); %Eosinophils 16.3 % (0.0-10.0); %Lymphocytes 29.4 % (21.0-51.0); %Monocytes 8.4 % (0.0-10.0); %Neutrophils 44.8 % (42.0-75.0); Hemoglobin 11.2 g/dL (12.0-16.0); Mean Corpuscular Hemoglobin 30.8 pg (27.0-31.0); Mean Corpuscular Volume 99.3 fL (78.0-98.0); Mean Platelet Volume 9.2 fL (7.4-10.4); Platelet Count 141 thou/uL (130-400); Red Blood Cell (RBC) Count 3.65 mill/uL (4.20-5.40); White Blood Cell (WBC) Count 5.4 thou/uL (4.8-10.8)
--- NOTE | 2018-08-07 22:29 | RAD ---
CHEST ONE VIEW ABDOMEN TWO VIEWS: History: Chest and abdomen pain. FINDINGS: Cardiac silhouette is magnified by projection. Pulmonary vasculature is unremarkable. Lungs are hyper inflated. Mediastinum is midline with calcified mediastinal lymph nodes and aortic calcification. No lobar consolidation or evidence of free subdiaphragmatic gas. Gas and stool over the colon and rectum. No differential air fluid levels or evidence of free subdiap hragmatic gas. IMPRESSION: 1. Nonspecific bowel gas pattern. 2. COPD. 3. Atherosclerosis. POS: [facility]
[2018-08-07 22:30] LABS: ALT (SGPT) 23 U/L (8-55); AST (SGOT) 30 U/L (5-34); Albumin 3.6 g/dL (3.4-4.8); Alkaline Phosphatase 69 U/L (40-150); Anion Gap 10 mmol/L (10-20); BUN (Urea Nitrogen) 38 mg/dL (9.8-20.1); Bilirubin, Total 0.2 mg/dL (0.2-1.2); Calc. Creatinine Clearance 0 mL/min (70-130); Calcium 9.3 mg/dL (7.8-10.44); Carbon Dioxide 33 mmol/L (23-31); Chloride 104 mmol/L (98-107); Estimated GFR-MDRD 38; Globulin 3.1 g/dL (2.4-3.5); Glucose 99 mg/dL (83-110); Potassium 4.8 mmol/L (3.5-5.1); Protein, Total 6.7 g/dL (6.0-8.3); Sodium 142 mmol/L (136-145)
== END 2018-08-08 00:23 | disposition home or self-care (01) ==
LOC: ERS 20:49
DX: K90.49 Malabsorption due to intolerance, not elsewhere classified (principal); I10 Essential (primary) hypertension; J44.9 Chronic obstructive pulmonary disease, unspecified; F17.200 Nicotine dependence, unspecified, uncomplicated; Z79.51 Long term (current) use of inhaled steroids; Z79.899 Other long term (current) drug therapy
CPT/HCPCS: 36415; 74022; 80053; 85025; 93005

== ENCOUNTER 2018-10-01 15:42 | Observation (INO) | payer MEDICARE, OTHER ==
[2018-10-01] MEDS ORDERED: methylPREDNISolone Sod Succ/PF 125 MG/2 ML VIAL ONE (16:25)
[2018-10-01 16:27] LABS: Hemoglobin 11.8 g/dL (12.0-16.0); Mean Corpuscular Hemoglobin 32.4 pg (27.0-31.0); RBC Distribution Width 13.2 % (11.5-14.5); Red Blood Cell (RBC) Count 3.65 mill/uL (4.20-5.40); White Blood Cell (WBC) Count 4.5 thou/uL (4.8-10.8)
[2018-10-01 16:28] LABS: #Lymphocytes 1.3 thou/uL (1.20-3.40); #Monocytes 0.4 thou/uL (0.11-0.59); #Neutrophils 1.8 thou/uL (1.40-6.50); %Basophils 0.8 % (0.0-1.0); %Eosinophils 21.5 % (0.0-10.0); %Lymphocytes 29.3 % (21.0-51.0); %Monocytes 8.5 % (0.0-10.0)
--- NOTE | 2018-10-01 16:31 | RAD ---
PORTABLE CHEST: History: Dyspnea. Comparison: 07-08-18 FINDINGS: Lungs are hyperexpanded. There are chronic lung parenchymal changes which appear stable. No evidence of acute infiltrate. Heart size upper normal and stable. IMPRESSION: No acute interval change. POS: [facility]
[2018-10-01 16:48] LABS: MDiff Complete? YES; Macrocytosis SLIGHT = 6-15 cells (100X) (0-5/hpf); Mean Platelet Volume 9.2 fL (7.4-10.4); Ovalocytes SLIGHT = 2-5 cells (100X) (0-1/hpf); Platelet Count 113 thou/uL (130-400); Platelet Morphology Comment Appears Decreased
[2018-10-01 16:52] LABS: ALT (SGPT) 20 U/L (8-55); AST (SGOT) 27 U/L (5-34); Albumin 3.9 g/dL (3.4-4.8); Alkaline Phosphatase 69 U/L (40-150); Anion Gap 13 mmol/L (10-20); BUN (Urea Nitrogen) 30 mg/dL (9.8-20.1); Bilirubin, Total 0.4 mg/dL (0.2-1.2); Calc. Creatinine Clearance 0 mL/min (70-130); Calcium 9.5 mg/dL (7.8-10.44); Carbon Dioxide 35 mmol/L (23-31); Chloride 102 mmol/L (98-107); Estimated GFR-MDRD 47; Globulin 2.9 g/dL (2.4-3.5); Glucose 112 mg/dL (83-110); Potassium 4.6 mmol/L (3.5-5.1); Protein, Total 6.8 g/dL (6.0-8.3); Sodium 145 mmol/L (136-145)
--- NOTE | 2018-10-01 17:34 | PDOC.FPRHP ---
- History of Present Illness Chief Complaint: SOB History of Present Illness: 88yo female with pmh of COPD presenting with SOB and chest tightness that started Tuesday. She went to see her PCP who started Prednisone and reports she has been taking it. She has been taking Spiriva BID and duonebs as prescribed no missed doses. Had subjective fever at home. Increased cough and white sputum production. Denies sick contacts. On 2L NC at home, reports she wears it during the day and at night. PCP: MARCELINO (Dr Ordonez) ED Course: Doxycycline 100mg, Solumedrol 125mg, Duoneb 6mL CXR- no changes - Allergies/Adverse Reactions Allergies Allergy/AdvReac Type Severity Reaction Status Date / Time No Known Allergies Allergy Verified 10/01/18 20:58 - Home Medications Medication Instructions Recorded Confirmed Type Ipratropium/Albuterol Sulfate 3 ml INH Q4H PRN 12/24/17 10/01/18 History [DuoNeb] Albuterol Sulfate [Proair HFA] 2 puff INH QID PRN 12/26/17 10/01/18 History Docusate [Colace] 100 mg PO BID PRN 12/26/17 10/01/18 History Omeprazole 1 cap PO DAILY 02/21/18 10/01/18 History Amlodipine [Norvasc] 5 mg PO DAILY #30 tab 02/24/18 10/01/18 Rx Lisinopril [Zestril] 5 mg PO DAILY #30 tab 02/24/18 10/01/18 Rx Nebivolol HCl [Bystolic] 5 mg PO DAILY #30 tab 02/24/18 10/01/18 Rx predniSONE 40 mg PO DAILY #3 tab 02/24/18 10/01/18 Rx Ferrous Gluconate 324 mg PO Q2DAYS 10/01/18 10/01/18 History Mirtazapine 15 g PO DAILY 10/01/18 10/01/18 History Polyethylene Glycol 3350 [Miralax] 17 gm PO DAILY 10/01/18 10/01/18 History Simvastatin [Zocor] 20 mg PO HS 10/01/18 10/01/18 History Tiotropium [place] [Spiriva] 2 puff IH BID 10/01/18 10/01/18 History - History PMHx: CKD, HTN, COPD, osteoporosis, HLD, cataracts PSHx: None FHx: No fam hx of cancer Social: Former smoker quit 4 years ago. Started age 17, smoked 1/2ppd. Denies alcohol or drug use - Review of Systems General: reports: fever/chills. denies: weight/appetite/sleep changes, night sweats Eyes: denies: eye pain, vision changes ENT: reports: nasal congestion. denies: rhinorrhea Respiratory: reports: cough, congestion, shortness of breath Cardiovascular: denies: chest pain, palpitation, edema Gastrointestinal: reports: constipation. denies: nausea, vomiting, diarrhea, abdominal pain Genitourinary: denies: dysuria, other (hematuria) Skin: denies: rashes, lesions Musculoskeletal: denies: pain, tenderness Neurological: denies: syncope, weakness - Vital signs BP: 168/67 HR: 71 RR: 15 Tmax: 100.2 Pox: 100% on 2L Wt: 36kg - Physical Exam Constitutional: NAD, awake, alert and oriented, other (thin) HEENT: normocephalic and atraumatic, MMM Neck: supple, trachea midline Heart: RRR, normal S1/S2, no murmurs/rubs/gallops Lungs: other (Bibasilar expiratory wheezing, prolonged expiratory phase. Able to speak in full sentences) Abdomen: soft, non-tender, bowel sounds present Musculoskeletal: normal structure, normal tone, ROM grossly normal Neurological: no focal deficit Skin: no rash/lesions Psychiatric: normal mood and affect, good judgment and insight, intact recent and remote memory FMR H&P: Results - Labs Result Diagrams: 10/01/18 16:13 10/01/18 16:13 Lab results: WBC 4.5 thou/uL (4.8-10.8) L 10/01/18 16:13 Hgb 11.8 g/dL (12.0-16.0) L 10/01/18 16:13 Hct 37.0 % (36.0-47.0) 10/01/18 16:13 MCV 101.0 fL (78.0-98.0) H 10/01/18 16:13 Plt Count 113 thou/uL (130-400) L 10/01/18 16:13 Neutrophils % 40.0 % (42.0-75.0) L 10/01/18 16:13 Sodium 145 mmol/L (136-145) 10/01/18 16:13 Potassium 4.6 mmol/L (3.5-5.1) 10/01/18 16:13 Chloride 102 mmol/L (98-107) 10/01/18 16:13 Carbon Dioxide 35 mmol/L (23-31) H 10/01/18 16:13 BUN 30 mg/dL (9.8-20.1) H 10/01/18 16:13 Creatinine 1.29 mg/dL (0.6-1.1) H 10/01/18 16:13 Glucose 112 mg/dL (83-110) H 10/01/18 16:13 Lactic Acid 1.9 mmol/L (0.5-2.2) 10/01/18 16:13 Calcium 9.5 mg/dL (7.8-10.44) 10/01/18 16:13 Total Bilirubin 0.4 mg/dL (0.2-1.2) 10/01/18 16:13 AST 27 U/L (5-34) 10/01/18 16:13 ALT 20 U/L (8-55) 10/01/18 16:13 Alkaline Phosphatase 69 U/L (40-150) 10/01/18 16:13 Serum Total Protein 6.8 g/dL (6.0-8.3) 10/01/18 16:13 Albumin 3.9 g/dL (3.4-4.8) 10/01/18 16:13 - EKG Interpretation EKG: normal sinus rhythm, Rate (beats per minute): 77, with sinus arrhythmia, Conduction normal, ST segments normal, T waves normal, [place] normal, voltage criteria for LVH. - Radiology Interpretation Chest x-ray Status: report reviewed by me Additional comment: no acute changes. Hyperexpanded lungs FMR H&P: A/P - Problem List (1) CKD (chronic kidney disease) stage 3, GFR 30-59 ml/min Current Visit: No Status: Acute Code(s): N18.3 - CHRONIC KIDNEY DISEASE, STAGE 3 (MODERATE) (2) COPD exacerbation Current Visit: No Status: Acute Code(s): J44.1 - CHRONIC OBSTRUCTIVE PULMONARY DISEASE W (ACUTE) EXACERBATION (3) HLD (hyperlipidemia) Current Visit: No Status: Acute Code(s): E78.5 - HYPERLIPIDEMIA, UNSPECIFIED (4) HTN (hypertension) Current Visit: No Status: Acute Code(s): I10 - ESSENTIAL (PRIMARY) HYPERTENSION Qualifiers: (5) Tobacco abuse Current Visit: No Status: Acute Code(s): Z72.0 - TOBACCO USE - Plan Ms Gross is an 88yo female with pmh of COPD presenting with COPD exacerbation COPD exacerbation - 100% on 2L, on 2L chronically at home - s/p Doxycycline in ED, will obtain procal, anntibiotics pending result - Will continue home Spiriva - Duonebs TAMAR - Continue steroids - Admit to medical obs HTN - Continue home meds HLD - Continue home meds GERD - Continue home meds Code Status: DVT ppx: SCDs PCP: MARCELINO FMR H&P: Upper Level - Pertinent history 88 yo F with hx of COPD presenting with worsening cough, SOB, and subjective fever over the last 1-2 days. Pt is on PRN home oxygen and states she does not use it. Pt evaluated in ER and did not improve with duoneb and IV steroids. - Pertinent findings VSS, tmax 100.2 rectal CV: RRR Resp: Increased work of breathing, prolonged expiratory phase with bibasilar wheezing - Plan Date/Time: 10/01/18 3681 I, Alessio Mckeon MD PGY3, have evaluated this patient and agree with findings/ plan as outlined by training intern resident. Pertinent changes/additions are listed here. 1. Acute COPD exacerbation -Admit to observation. Start pt on Azithromycin and oral Prednisone. Continue nebulized breathing treatments. -Obtain procalcitonin. -Supplemental O2 for goal O2 sat of 88-92%. 2. MARISA on CKD3 -Gentle IVF and trend. PPx: Lovenox for VTE, no GI indicated DNAR code dispo: Admit to observation for anticipated length of stay less than two midnights, pending clinical course. Addendum - Attending - Attending Attestation Date/Time: 10/01/18 3803 I personally evaluated the patient and discussed the management with Dr. Warren /Mike. I agree with the History, Examination, Assessment and Plan documented above with any addition or exceptions noted below. Patient with history of COPD and on 2L O2 by NC at home at baseline here with increased sputum production, cough, and increased chest tightness. Lung exam shows diminished air entry and mild wheezing. CXR does not show infiltrate. Patient will be placed on Obs for COPD exacerbation without acute on chronic hypoxia. Continue breathing treatments, steroids, and will start abx due to elevated PCT in setting of new sputum production. PT as needed. Anticipate 1-3 days needed.
[2018-10-01] MEDS ORDERED: Acetaminophen 325 MG TAB PO PRN (20:07)
[2018-10-01] MEDS ORDERED: Ondansetron PF 4 MG/2 ML Vial IVP PRN (20:07)
[2018-10-01] MEDS ORDERED: Ondansetron ODT 4 MG TAB SL PRN (20:07)
[2018-10-01 22:48] VITALS: BMI 13.4
[2018-10-01] MEDS ORDERED: Azithromycin 200 MG/5 ML Oral Suspension PO SCH (23:15)
[2018-10-02 05:15] LABS: #Lymphocytes 0.6 thou/uL (1.20-3.40); #Monocytes 0.1 thou/uL (0.11-0.59); #Neutrophils 2.1 thou/uL (1.40-6.50); %Basophils 0.4 % (0.0-1.0); %Eosinophils 0.3 % (0.0-10.0); %Monocytes 3.2 % (0.0-10.0); Mean Corpuscular HGB CONC 31.1 g/dL (32.0-36.0); Mean Corpuscular Hemoglobin 31.8 pg (27.0-31.0); Mean Platelet Volume 8.9 fL (7.4-10.4); Platelet Count 117 thou/uL (130-400); RBC Distribution Width 12.9 % (11.5-14.5); Red Blood Cell (RBC) Count 3.45 mill/uL (4.20-5.40); White Blood Cell (WBC) Count 2.8 thou/uL (4.8-10.8)
[2018-10-02 05:24] LABS: Anion Gap 10 mmol/L (10-20); BUN (Urea Nitrogen) 30 mg/dL (9.8-20.1); Calc. Creatinine Clearance 20 mL/min (70-130); Calcium 9.3 mg/dL (7.8-10.44); Carbon Dioxide 33 mmol/L (23-31); Chloride 102 mmol/L (98-107); Estimated GFR-MDRD 52; Glucose 120 mg/dL (83-110); Potassium 5.3 mmol/L (3.5-5.1); Sodium 140 mmol/L (136-145)
[2018-10-02] MEDS ORDERED: Docusate 100 MG CAP PO PRN (05:24)
--- NOTE | 2018-10-02 07:19 | PDOC.EVN ---
Addendum - Attending - Attending Attestation Date/Time: 10/02/18 5588 I personally evaluated the patient and discussed the management with Dr. Zhao. I agree with the History, Examination, Assessment and Plan documented in her progress note with any addition or exceptions noted below. Patient overall doing well. On baseline O2 requirement. Continue nebs, steroids , Azithromycin. PCT trending down so reassuring. No evidence of PNA on CXR. Mild hyperkalemia this morning though no reason for that, will recheck, not at level for intervention. Encourage ambulation and consider discharge either this afternoon or tomorrow.
[2018-10-02 08:30] VITALS: TEMP 97.9
[2018-10-02] MEDS ORDERED: predniSONE 20 MG TAB PO SCH (09:00)
[2018-10-02] MEDS ORDERED: Azithromycin 250 MG TAB PO SCH (09:00)
[2018-10-02] MEDS ORDERED: Nebivolol HCl 5 MG TAB PO SCH (09:00)
[2018-10-02] MEDS ORDERED: Ferrous Gluconate 324 MG TAB PO SCH (09:00)
[2018-10-02] MEDS ORDERED: Amlodipine 5 MG TAB PO SCH (09:00)
[2018-10-02] MEDS ORDERED: Mirtazapine 15 MG TAB PO SCH (09:00)
[2018-10-02] MEDS ORDERED: Polyethylene Glycol 3350 17 GM Packet PO SCH (09:00)
[2018-10-02] MEDS ORDERED: Lisinopril 5 MG TAB PO SCH (09:00)
[2018-10-02] MEDS ORDERED: Spiriva 18 MCG CAP (Box of 5 Caps) INH SCH (09:00)
--- NOTE | 2018-10-02 09:06 | PDOC.FM ---
- Subjective Subjective: Patient reports that her breathing is improved this AM. She reports continue cough with sputum production. Denies any chest pain, but feels tight in her chest. She denies any fevers, chills, N/V, abdominal pain. - Objective MAR Reviewed: Yes Vital Signs & Weight: Vital Signs (12 hours) Temp Pulse Resp BP Pulse Ox 10/02/18 07:28 97.9 F 70 20 165/73 H 98 10/02/18 07:12 72 16 98 10/02/18 04:13 98.1 F 80 22 H 123/56 L 99 10/02/18 02:13 78 14 100 10/01/18 23:46 98.9 F 90 20 162/72 H 99 10/01/18 22:54 77 14 100 Weight Weight 37.603 kg I&O: 10/01/18 10/02/18 10/03/18 06:59 06:59 06:59 Intake Total 240 Output Total 0 Balance 240 Result Diagrams: 10/02/18 05:03 10/02/18 05:03 Phys Exam - Physical Examination Constitutional: NAD (cachectic appearing) HEENT: moist MMs, sclera anicteric Respiratory: no wheezing, no rales, no rhonchi no respiratory distress on 2L O2, decreased air entry, prolonged expiration Barrel chest Cardiovascular: RRR, no significant murmur, no rub Gastrointestinal: soft, non-tender, no distention, positive bowel sounds Musculoskeletal: no edema, pulses present Neurological: non-focal, moves all 4 limbs Psychiatric: normal affect, A&O x 3 Skin: normal turgor, cap refill <2 seconds Dx/Plan (1) COPD exacerbation Code(s): J44.1 - CHRONIC OBSTRUCTIVE PULMONARY DISEASE W (ACUTE) EXACERBATION Status: Acute (2) Hyperkalemia Code(s): E87.5 - HYPERKALEMIA Status: Acute (3) Pulmonary cachexia due to COPD Code(s): J44.9 - CHRONIC OBSTRUCTIVE PULMONARY DISEASE, UNSPECIFIED; R64 - CACHEXIA Status: Acute (4) Chronic respiratory failure Code(s): J96.10 - CHRONIC RESPIRATORY FAILURE, UNSP W HYPOXIA OR HYPERCAPNIA Status: Chronic (5) Former tobacco use Code(s): Z87.891 - PERSONAL HISTORY OF NICOTINE DEPENDENCE Status: Chronic (6) CKD (chronic kidney disease) stage 3, GFR 30-59 ml/min Code(s): N18.3 - CHRONIC KIDNEY DISEASE, STAGE 3 (MODERATE) Status: Chronic (7) HLD (hyperlipidemia) Code(s): E78.5 - HYPERLIPIDEMIA, UNSPECIFIED Status: Chronic (8) HTN (hypertension) Code(s): I10 - ESSENTIAL (PRIMARY) HYPERTENSION Status: Chronic Qualifiers: - Plan Plan: Acute COPD exacerbation Patient presented with chest tightness, SOB, cough with increased sputum production. CXR showed hyperinflation. ED gave duonebs, solumedrol, and doxycycline. Procal 0.4, now downtrended to 0.11 after abx. - Continue Azithromycin and Prednisone - Duonebs TAMAR q4h and PRN q2h Chronic Respiratory Failure 2/2 COPD Patient on 2L home O2. Satting 95-100% on this. - Continue home O2. HTN - Continue home amlodipine, lisinopril, bystolic HLD - Continue home simvastatin GERD - Continue protonix CKDIII Stable - Monitor - Avoid nephrotoxic agents Former tobacco abuse - Encouraged continued cessation Code Status: DNAR DVT ppx: SCDs Dispo: anticipate d/c this afternoon if patient's status continues to improve versus tomorrow.
[2018-10-02 12:01] VITALS: BP 159/69
--- NOTE | 2018-10-02 12:31 | PDOC.EVN ---
Event Note - Event Note Event Note: Re-evaluated patient at 12:20pm and patient feeling much improved. She denies any current SOB or wheezing. She reports that she has been up ambulating to the bathroom without difficulty. She has home O2. She was resting comfortably in bed with granddaughter at bedside. Her daughter will come pick her up and take her home and will be able to chicken picker her new prescriptions. Will d/c patient home. Gave ED precautions.
[2018-10-02] MEDS ORDERED: Simvastatin 20 MG TAB PO SCH (21:00)
--- NOTE | 2018-10-03 02:01 | DIS ---
DATE OF ADMISSION: 10/01/2018 DATE OF DISCHARGE: 10/02/2018 ADMITTING ATTENDING: Fidencio Shi MD. DISCHARGE ATTENDING: Fidencio Shi MD. ADMITTING RESIDENT: Melinda Warren MD. DISCHARGE RESIDENT: Zeinab Zhao MD. CONSULTS: None. PROCEDURES: None. PRIMARY DIAGNOSES: 1. Acute on chronic respiratory failure. 2. Acute chronic obstructive pulmonary disease exacerbation. 3. Pulmonary cachexia. SECONDARY DIAGNOSES: 1. Hypertension. 2. Hyperlipidemia. 3. Gastroesophageal reflux disease. 4. Chronic kidney disease 3. 5. Former tobacco abuse. DISCHARGE MEDICATIONS: 1. Azithromycin 250 mg p.o. daily for 3 days. 2. Prednisone 40 mg p.o. daily for 3 days. 3. Amlodipine 5 mg p.o. daily. 4. Docusate 100 mg p.o. b.i.d. p.r.n. constipation. 5. Ferrous gluconate 324 mg p.o. q.2 days. 6. Lisinopril 5 mg p.o. daily. 7. Mirtazapine 15 mg p.o. daily. 8. Bystolic 5 mg p.o. daily. 9. Omeprazole 20 mg p.o. daily. 10. MiraLAX 17 g p.o. daily. 11. Simvastatin 20 mg p.o. at bedtime. 12. Spiriva 2 puffs inhaled b.i.d. DISCONTINUED MEDICATIONS: None. HISTORY OF PRESENT ILLNESS/HOSPITAL COURSE: This is an 88-year-old female with past medical history of COPD, chronic respiratory failure, on 2 L home oxygen, who presented due to shortness of breath, chest tightness, increased sputum production. The patient had been seen by her PCP the day prior to admission and had been started on prednisone. The patient reported continued worsening of her symptoms and presents to the ED. She was given a dose of doxycycline, Solu-Medrol, and DuoNeb. The patient was then started on azithromycin, p.o. prednisone, and DuoNebs. The patient reported significant increase in her ability to breathe and improvement in her symptoms overall. The patient had a procalcitonin initially of 0.4, down trended to 0.11. Her chest x-ray showed hyperinflated lungs, no signs of pneumonia. The patient had blood cultures that showed no growth to date. The patient had a lactic acid of 1.9. The patient reports she has been able to walk and saturating well on 2 L of home oxygen. The patient was discharged home on 10/02/2018. DISPOSITION: Stable with overall guarded prognosis due to her severe COPD. DISCHARGE INSTRUCTIONS: 1. Location: Home. 2. Diet: Regular. 3. Activity: As tolerated. 4. Follow up with Dr. Ordonez within 7 days. Job ID: [id number]
== END 2018-10-02 15:10 | disposition home or self-care (01) ==
LOC: ERS 15:42 → 2SW 17:34
PROVIDERS: ADMIT Student in an Organized Health Care Education/Training Program; ATTEND Student in an Organized Health Care Education/Training Program
DX: J44.1 Chronic obstructive pulmonary disease with (acute) exacerbation (principal); J96.20 Acute and chronic respiratory failure, unspecified whether with hypoxia or hypercapnia; R64 Cachexia; I12.9 Hypertensive chronic kidney disease with stage 1 through stage 4 chronic kidney disease, or unspecified chronic kidney disease; N18.3 Chronic kidney disease, stage 3 (moderate); N17.9 Acute kidney failure, unspecified; E78.5 Hyperlipidemia, unspecified; K21.9 Gastro-esophageal reflux disease without esophagitis; M81.0 Age-related osteoporosis without current pathological fracture; Z68.1 Body mass index [BMI] 19.9 or less, adult; Z66 Do not resuscitate; Z87.891 Personal history of nicotine dependence; Z79.899 Other long term (current) drug therapy; Z99.81 Dependence on supplemental oxygen
CPT/HCPCS: 71045; 80048; 80053; 83605; 84145 ×2; 84484; 85025 ×2; 87040; 87804 ×2; 93005; 94640 ×2; 94760; 96365; 96375; 97139; 99285; G0378 ×2; 36415; J2930; J3490; J7512; J7620

== ENCOUNTER 2018-10-13 22:19 | Inpatient (IN) | payer MEDICARE, OTHER ==
--- NOTE | 2018-10-13 22:41 | RAD ---
EXAM: Single view of the chest HISTORY: Dyspnea; COPD exacerbation with respiratory distress COMPARISON: 10/01/2018 FINDINGS: Single view of the chest shows a normal sized cardiomediastinal silhouette. Hyperexpansion of the lungs is consistent with COPD. Atherosclerotic calcifications are seen in the aorta. There is no evidence of consolidation, mass, or pleural effusion. The bones are unremarkable. IMPRESSION: No evidence of acute cardiopulmonary disease
[2018-10-13 22:46] LABS: #Basophils 0.1 thou/uL (0.0-0.2); #Eosinphils 0.7 thou/uL (0.0-0.7); #Monocytes 0.8 thou/uL (0.11-0.59); #Neutrophils 8.4 thou/uL (1.40-6.50); %Basophils 0.6 % (0.0-1.0); %Eosinophils 5.8 % (0.0-10.0); %Neutrophils 69.6 % (42.0-75.0); Hemoglobin 12.2 g/dL (12.0-16.0); Mean Corpuscular HGB CONC 31.2 g/dL (32.0-36.0); Mean Corpuscular Hemoglobin 32.1 pg (27.0-31.0); Mean Platelet Volume 8.7 fL (7.4-10.4); Platelet Count 162 thou/uL (130-400); RBC Distribution Width 13.6 % (11.5-14.5); Red Blood Cell (RBC) Count 3.79 mill/uL (4.20-5.40)
[2018-10-13] MEDS ORDERED: Acetaminophen 500 MG TAB ONE (23:01)
[2018-10-13 23:06] LABS: ALT (SGPT) 33 U/L (8-55); AST (SGOT) 39 U/L (5-34); Albumin 3.8 g/dL (3.4-4.8); Alkaline Phosphatase 71 U/L (40-150); Anion Gap 14 mmol/L (10-20); BUN (Urea Nitrogen) 55 mg/dL (9.8-20.1); Bilirubin, Total 0.3 mg/dL (0.2-1.2); CK (CPK) 48 U/L (29-168); Calc. Creatinine Clearance 0 mL/min (70-130); Calcium 9.8 mg/dL (7.8-10.44); Carbon Dioxide 35 mmol/L (23-31); Chloride 101 mmol/L (98-107); Estimated GFR-MDRD 41; Globulin 3.3 g/dL (2.4-3.5); Glucose 110 mg/dL (83-110); Protein, Total 7.1 g/dL (6.0-8.3); Sodium 145 mmol/L (136-145)
[2018-10-13 23:44] LABS: Bilirubin Negative (Negative); Blood, Urine Negative (Negative); Clarity CLEAR (Clear); Glucose, Urine (Dipstick) Negative (Negative); Leukocyte Negative (Negative); Nitrite Negative (Negative); Protein, Urine (Dipstick) Trace mg/dL (Neg-Trace); Specific Gravity, Urine 1.015 (1.002-1.036); Urobilinogen 0.2 mg/dL (0.2-1.0)
--- NOTE | 2018-10-13 23:48 | PDOC.FPRHP ---
- History of Present Illness Chief Complaint: SOB History of Present Illness: This is a 88 yo female with a pmh of COPD, HTN, GERD, HLD who recently was discharged from the hospital who returns with a cc of SOB. Pt reports her symptoms started yesterday and have been worsening since then. She reports trying to use her inhaler with no relief. She reports compliance with her medications. She denies chest pain, nausea, vomiting, or abdominal pain. She reports using 2L O2 at home at her baseline. Family member at bedside reports pt is much improved after treatment and BiPAP. Family also reports pt has regular exposure to 2nd hand smoke from grand children. ED Course: Solumedrol, mag, zofran, duoneb x2 Levaquin, zosyn, NS 1L, tylenol - Allergies/Adverse Reactions Allergies Allergy/AdvReac Type Severity Reaction Status Date / Time No Known Allergies Allergy Verified 10/14/18 01:38 - Home Medications Medication Instructions Recorded Confirmed Type Ipratropium/Albuterol Sulfate 3 ml INH Q4H PRN 12/24/17 10/01/18 History [DuoNeb] Albuterol Sulfate [Proair HFA] 2 puff INH QID PRN 12/26/17 10/01/18 History Docusate [Colace] 100 mg PO BID PRN 12/26/17 10/01/18 History Omeprazole 1 cap PO DAILY 02/21/18 10/01/18 History Amlodipine [Norvasc] 5 mg PO DAILY #30 tab 02/24/18 10/01/18 Rx Lisinopril [Zestril] 5 mg PO DAILY #30 tab 02/24/18 10/01/18 Rx Nebivolol HCl [Bystolic] 5 mg PO DAILY #30 tab 02/24/18 10/01/18 Rx Ferrous Gluconate 324 mg PO Q2DAYS 10/01/18 10/01/18 History Mirtazapine 15 g PO DAILY 10/01/18 10/01/18 History Polyethylene Glycol 3350 [Miralax] 17 gm PO DAILY 10/01/18 10/01/18 History Simvastatin [Zocor] 20 mg PO HS 10/01/18 10/01/18 History Tiotropium [place] [Spiriva] 2 puff IH BID 10/01/18 10/01/18 History Azithromycin [Zithromax] 250 mg PO DAILY #4 tab 10/02/18 Rx predniSONE 40 mg PO DAILY #3 tab 10/02/18 Rx - History PMHx: COPD, CKD 3, HLD PSHx: None FHx: noncontributory Social: Denies current SHERYL, history of tobacco abuse, regular second hand smoke exposure - Review of Systems General: reports: fever/chills, fatigue. denies: weight/appetite/sleep changes Eyes: denies: eye pain ENT: denies: nasal congestion, rhinorrhea Respiratory: reports: cough (with increased purulent sputum), shortness of breath, exercise intolerance Cardiovascular: denies: chest pain, palpitation, edema Gastrointestinal: reports: nausea. denies: vomiting, diarrhea, constipation Genitourinary: denies: incontinence, dysuria Skin: denies: rashes, lesions Musculoskeletal: denies: pain, tenderness Neurological: denies: numbness, syncope Psychological: denies: anxiety, depression - Vital signs BP: 155/49 HR: 73 RR: 29 Tmax: 100.7 Pox: 100% on BiPAP Wt: 41 kg - Physical Exam Constitutional: NAD, awake, alert and oriented, well developed HEENT: normocephalic and atraumatic, PERRLA, EOMI, conjunctiva clear, grossly normal vision, grossly normal hearing, MMM Neck: FROM, trachea midline Chest: no-tender to palpation, no lesions Heart: RRR, normal S1/S2, pulses present Lungs: other (Tight lung sounds, decreased air movement, no wheezing) Abdomen: soft, non-tender, bowel sounds present Musculoskeletal: normal tone, ROM grossly normal Neurological: no focal deficit Skin: good turgor, capillary refill <2 seconds Heme/Lymphatic: no unusual bruising or bleeding Psychiatric: normal mood and affect FMR H&P: Results - Labs Result Diagrams: 10/14/18 05:23 10/14/18 05:23 Lab results: WBC 12.0 thou/uL (4.8-10.8) H 10/13/18 22:30 Hgb 12.2 g/dL (12.0-16.0) 10/13/18 22:30 Hct 39.1 % (36.0-47.0) 10/13/18 22:30 MCV 103.0 fL (78.0-98.0) H 10/13/18 22:30 Plt Count 162 thou/uL (130-400) 10/13/18 22:30 Neutrophils % 69.6 % (42.0-75.0) 10/13/18 22:30 Sodium 145 mmol/L (136-145) 10/13/18 22:30 Potassium 5.0 mmol/L (3.5-5.1) 10/13/18 22:30 Chloride 101 mmol/L (98-107) 10/13/18 22:30 Carbon Dioxide 35 mmol/L (23-31) H 10/13/18 22:30 BUN 55 mg/dL (9.8-20.1) H 10/13/18 22:30 Creatinine 1.45 mg/dL (0.6-1.1) H 10/13/18 22:30 Glucose 110 mg/dL (83-110) 10/13/18 22:30 Calcium 9.8 mg/dL (7.8-10.44) 10/13/18 22:30 Total Bilirubin 0.3 mg/dL (0.2-1.2) 10/13/18 22:30 AST 39 U/L (5-34) H 10/13/18 22:30 ALT 33 U/L (8-55) 10/13/18 22:30 Alkaline Phosphatase 71 U/L (40-150) 10/13/18 22:30 Creatine Kinase 48 U/L (29-168) 10/13/18 22:30 B-Natriuretic Peptide 159.3 pg/mL (0-100) H 10/13/18 22:30 Serum Total Protein 7.1 g/dL (6.0-8.3) 10/13/18 22:30 Albumin 3.8 g/dL (3.4-4.8) 10/13/18 22:30 - EKG Interpretation EKG: NSR - Radiology Interpretation Chest x-ray Status: report reviewed by me (Hyperinflation) FMR H&P: A/P - Problem List (1) COPD exacerbation Current Visit: No Status: Acute Code(s): J44.1 - CHRONIC OBSTRUCTIVE PULMONARY DISEASE W (ACUTE) EXACERBATION (2) Hypoxia Current Visit: No Status: Acute Code(s): R09.02 - HYPOXEMIA (3) CKD (chronic kidney disease) stage 3, GFR 30-59 ml/min Current Visit: No Status: Chronic Code(s): N18.3 - CHRONIC KIDNEY DISEASE, STAGE 3 (MODERATE) (4) HLD (hyperlipidemia) Current Visit: No Status: Chronic Code(s): E78.5 - HYPERLIPIDEMIA, UNSPECIFIED (5) HTN (hypertension) Current Visit: No Status: Chronic Code(s): I10 - ESSENTIAL (PRIMARY) HYPERTENSION Qualifiers: - Plan This is an 88yo female with pmh of COPD HTN, GERD, HLD COPD exacerbation - Admit to IMCU, currently on BIPAP -S/P steroids, mag, duonebs -Pending Procal to direct abx use, recently on azithromycin and doxycycline, will start on Zosyn - Continue steroids -Pt maxed on spiriva, proair, advair, and Home O2, consider Pulm consult for further recommendations for outpt therapy HTN - Continue home meds HLD - Continue home meds GERD - Continue home meds Code Status: DNR Prophylaxis: SCDs Family: none at bedside Fluids: SL Diet HH Disposition: DC in2-3 days PCP: MARCELINO FMR H&P: Upper Level - Plan Date/Time: 10/13/18 0742 I, B. Raz Allan MD, have evaluated this patient and agree with findings/plan as outlined by exercise science internship resident. Pertinent changes/additions are listed here. 88 y/o F w/ PMHx of COPD on 2L NC chronically who presents for eval of shortness of breath which started earlier tonight w/ no improvement w/ home albuterol inhalers. She is on Spiriva, Advair, and PRN albuterol per our clinic records. Reportedly was 90% on RA upon EMS arrival w/ RR of 55. She was given solu-medrol, mag, duonebs x 2, and placed on CPAP with subjective improvement of her sxs. Reports increased frequency of cough and increased production of thick sputum. Recent admission for similar sxs earlier this month. Has had recent abx administered and hospitalization within the past month. Vital per [employer] Hand Note WBC 12.0 Trop 0.018 EKG Sinus arrhythmia rate 76 CXR Hyper-expansion of the lungs w/o consolidation, mass, or pleural effusion RSV + PE: Gen: Pt on bipap, no increased WOB noted. Cachetic appearing Pulm: Diminished breath sounds throughout noted. No overt wheezes. No retractions. Speaking in 4-5 word sentences on Bipap. Card: RRR 88 y/o F w/: 1) Acute on Chronic Hypoxic Hypercapneic Respiratory Failure 2/2 COPD Exacerbation - Pt w/ improvement in sxs w/ BiPAP, steroids, nebs, and mag given - Will admit to the IM on bipap w/ plans to wean as tolerated - Cont. w/ steroids and will continue w/ zosyn for pseudomonas coverage w/ scheduled and PRN nebs q4 hr and q2 hrs respectively and check a pro-mahesh to further eval of potential bacterial infection given noted temp of 100.7 until this returns negative. - RSV positive, likely viral etiology of pts sxs - Pt is already on LAMA, LABA+ICS, and PRN Albuterol and still w/ exacerbations - Will consider consulting Pulm for further eval and possible up titration of her controller medication with Roflumilast vs macrolide due to continued exacerbations on otherwise maximum inhaler therapy with LAMA+LABA+ICS+ PRN QUINCY - Will continue w/ patients home inhaler regimen 2) Other chronic medical problems per exercise science internship note Addendum - Attending - Attending Attestation Date/Time: 10/14/18 0200 I personally evaluated the patient and discussed the management with Dr. Parekh /Sanjana. I agree with the History, Examination, Assessment and Plan documented above with any addition or exceptions noted below. Patient here with increased dyspnea and sputum production over the last few days after recent hospitalization for similar complaints. Likely has end stage COPD. She was admitted and placed on Bipap but quickly weaned off. Admitted to [facility] for Bipap and continued monitoring. She was quickly weaned and placed on NC. Currently she reports feeling well. Lung exam shows poor air entry diffuse. Labs show elevated WBC with left shift. PCT reassuring, but will continue on empiric Levaquin for COPD exacerbation. Will discuss with Pulm about further options for treating her COPD. Anticipate can transfer out of [facility] this morning.
[2018-10-13] MEDS ORDERED: Piperacillin/Tazobactam 4.5 GM VIAL ONE (23:49)
[2018-10-14 00:36] LABS: Actual Bicarbonate (HCO3a) 31.9 mEq/L (22-28); Analyzer IN Cardio ER; Base Excess (BEa) 5.1 mEq/L (-2.0 to +3.0); CO2 Tension 58.2 mmHg (35.0-45.0); Calcium, Ionized 1.16 mmol/L (1.12-1.30); Carboxyhemoglobin (COHb) 0.3 gm% (0.0-3.0); Hemoglobin (Hb) 11.4 g/dL (12.0-16.0); O2 Tension (PaO2) 89.7 mmHg (> 60.0); Potassium - ABG Lab 4.36 mmol/L (3.70-5.30); pH, Arterial 7.36 (7.35-7.45)
[2018-10-14 00:38] LABS: Puncture Site RBA
[2018-10-14] MEDS ORDERED: Ondansetron PF 4 MG/2 ML Vial IVP PRN ×2 (01:04→01:24)
[2018-10-14] MEDS ORDERED: Ondansetron ODT 4 MG TAB SL PRN (01:04)
[2018-10-14] MEDS ORDERED: Acetaminophen 650 MG Suppository PR PRN (01:24)
[2018-10-14] MEDS ORDERED: Acetaminophen 325 MG TAB PO PRN (01:24)
[2018-10-14] MEDS ORDERED: Ondansetron ODT 4 MG TAB PO PRN (01:24)
[2018-10-14] MEDS: Sodium Chloride 0.9% 1,000 ML IV SCH ×2 (01:35→13:18)
[2018-10-14 05:51] LABS: Anion Gap 11 mmol/L (10-20); BUN (Urea Nitrogen) 50 mg/dL (9.8-20.1); Calc. Creatinine Clearance 19 mL/min (70-130); Carbon Dioxide 30 mmol/L (23-31); Chloride 104 mmol/L (98-107); Estimated GFR-MDRD 45; Glucose 149 mg/dL (83-110); Potassium 5.2 mmol/L (3.5-5.1); Sodium 140 mmol/L (136-145)
[2018-10-14 05:56] LABS: Troponin I 0.031 ng/mL (< 0.028)
[2018-10-14] MEDS ORDERED: Piperacillin/Tazobactam 4.5 GM in Sodium Chloride 0.9% 100 ML IVPB SCH (06:00)
[2018-10-14 06:07] LABS: Band 15 % (5-11); Hemoglobin 11.3 g/dL (12.0-16.0); Lymphocytes 7 % (21-51); MDiff Complete? YES; Mean Corpuscular HGB CONC 31.1 g/dL (32.0-36.0); Mean Corpuscular Hemoglobin 31.6 pg (27.0-31.0); Mean Platelet Volume 8.6 fL (7.4-10.4); Monocytes 1 % (0-10); Neutrophil 77 % (42-75); Platelet Count 140 thou/uL (130-400); RBC Distribution Width 13.5 % (11.5-14.5); Red Blood Cell (RBC) Count 3.57 mill/uL (4.20-5.40); White Blood Cell (WBC) Count 17.8 thou/uL (4.8-10.8)
[2018-10-14 06:14] VITALS: BMI 14.4
--- NOTE | 2018-10-14 06:24 | PDOC.FM ---
- Subjective Subjective: NAEO. Patient resting comfortably in bed. Back on home O2 of 2L NC. Patient reports her breathing is much improved. She states that she is back to her baseline breathing. She denies any chest pain, palpitations, wheezing, fever/ chills, nvd. - Objective MAR Reviewed: Yes Vital Signs & Weight: Vital Signs (12 hours) Temp Pulse Resp Pulse Ox 10/14/18 03:42 97.9 F 10/14/18 01:46 78 22 H 100 10/14/18 01:00 97 10/14/18 00:58 98 F Weight Weight 40.687 kg Most Recent Monitor Data Heart Rate from ECG 75 NIBP 167/71 NIBP BP-Mean 103 Respiration from ECG 30 SpO2 98 I&O: 10/12/18 10/13/18 10/14/18 06:59 06:59 06:59 Intake Total 400 Output Total 0 Balance 400 Result Diagrams: 10/14/18 05:23 10/14/18 05:23 Phys Exam - Physical Examination Constitutional: NAD cachectic HEENT: PERRLA, moist MMs, sclera anicteric Neck: supple, full ROM Respiratory: no wheezing, no rales, no rhonchi, clear to auscultation bilateral poor air movement Cardiovascular: RRR, no significant murmur, no rub Gastrointestinal: soft, non-tender, no distention, positive bowel sounds Musculoskeletal: no edema, pulses present Neurological: moves all 4 limbs Psychiatric: normal affect, A&O x 3 Skin: no rash, normal turgor, cap refill <2 seconds Dx/Plan (1) COPD exacerbation Code(s): J44.1 - CHRONIC OBSTRUCTIVE PULMONARY DISEASE W (ACUTE) EXACERBATION Status: Acute (2) Hyperkalemia Code(s): E87.5 - HYPERKALEMIA Status: Acute (3) CKD (chronic kidney disease) stage 3, GFR 30-59 ml/min Code(s): N18.3 - CHRONIC KIDNEY DISEASE, STAGE 3 (MODERATE) Status: Chronic (4) Chronic respiratory failure Code(s): J96.10 - CHRONIC RESPIRATORY FAILURE, UNSP W HYPOXIA OR HYPERCAPNIA Status: Chronic (5) HLD (hyperlipidemia) Code(s): E78.5 - HYPERLIPIDEMIA, UNSPECIFIED Status: Chronic (6) HTN (hypertension) Code(s): I10 - ESSENTIAL (PRIMARY) HYPERTENSION Status: Chronic Qualifiers: - Plan Plan: Acute on chronic hypoxic hypercapnic resp failure 2/2 COPD exacerbation S/P steroids, mag, duonebs in the ER w/ improvement of symptoms. RSV positive. - Patient weened from Bipap to her home 2L NC, resting comfortably - procal 0.16 - recently on azithromycin and doxycycline; zosyn started yesterday, can consider dc since procal neg. Can start course of azithro for anti-inflammatory effect. - Continue steroids - Pt maxed on spiriva, proair, advair, and Home O2, consider Pulm consult for further recommendations for outpt therapy - Will consult palliative/hospice Indeterminant Troponin - patient's tropinin trended from 0.02 -> 0.031 - Will trend another time, patient with no EKG changes or symptoms. Likely due to demand ischemia. Hyperkalemia - K 5.2 this AM, will continue to trend, getting duonebs which will help lower potassium. No ekg changes. HTN - Continue home meds HLD - Continue home meds GERD - Continue home meds Code: DNAR Dispo: transfer to [place], dc pending clinical course Case discussed with Dr. Shi Addendum - Attending - Attending Attestation Date/Time: 10/14/18 9399 I personally evaluated the patient and discussed the management with Dr. Tabares. I agree with the History, Examination, Assessment and Plan documented above with any addition or exceptions noted below. Patient here with presumed COPD exacerbation 2/2 RSV infection. She is off Bipap currently and resting comfortably. Suspect she has end stage COPD due to lung exam. Her sats are improved. Will transition abx as no evidence of severe bacterial infection. Consult Pulm to see if they can offer any further therapies. Consult Palliative care. Stable later today for transfer out of [facility].
[2018-10-14] MEDS ORDERED: Piperacillin/Tazobactam 2.25 GM in Sodium Chloride 0.9% 100 ML IVPB SCH (08:00)
[2018-10-14] MEDS: predniSONE 20 MG TAB PO SCH (08:38)
[2018-10-14 09:22] LABS: Troponin I Less than 0.010 ng/mL (< 0.028)
--- NOTE | 2018-10-14 14:39 | CON ---
DATE OF CONSULTATION: 10/14/2018 HISTORY OF PRESENT ILLNESS: She is an 88-year-old female, who was brought in here for a shortness of breath and elevated blood pressure, with longstanding history of tobacco abuse, though she has quit smoking many years ago. She tells me she can barely walk any distance without getting markedly short of breath. In the ER, she was placed on CPAP, to which she felt better. She is now on the MICU waiting for consultation. She has been here numerous times. Pulmonary has never seen her before. PAST MEDICAL HISTORY: Pertinent for; 1. Hypertension. 2. Renal failure. 3. COPD. 4. High cholesterol. 5. Previous unknown cardiac issues. PREVIOUS SURGERIES: None. HOME MEDICATIONS: Includes ; 1. Prednisone. 2. Spiriva. 3. Zocor. 4. Omeprazole. 5. Bystolic. 6. Mirtazapine. 7. Zestril 5. 8. DuoNeb. 9. Amlodipine 5. REVIEW OF SYSTEMS: Otherwise 10-point negative. PHYSICAL EXAMINATION: VITAL SIGNS: Temperature is 97, saturations are 100% on 1L, blood pressure 130/60, respiratory rate 18, and pulse 80. CHEST: Decreased breath sounds. No wheezing. CARDIAC: Normal S1 and S2. No gallops. ABDOMEN: Soft. LABORATORY DATA: PO2 was 89, pCO2 of on a BiPAP. Creatinine 1.36 and BUN is 50. Chest x-ray, hyperinflation. White count 17,000. IMPRESSION: 1. Acute on chronic respiratory failure. 2. End-stage chronic obstructive pulmonary disease. 3. Azotemia. PLAN: I see no evidence of any pneumonia. I would switch over to oral antibiotics. Otherwise, continue neb treatments, steroids, and low-flow O2. We will follow while in the MICU. Job ID: [id number]
[2018-10-14] MEDS: Mometasone/Formoterol 120 PUFF INHALER INH SCH (19:03)
--- NOTE | 2018-10-15 06:27 | PDOC.FM ---
- Subjective Subjective: NAEO. Patient resting comfortably in bed. States her breathing is much improved. On her home 2L NC. Complains of productive cough that has been present for about 1 week. Patient states that the plan is for her to go home - she states her daughter helps take care of her as well as some HH nurses. She is open to talking to palliative care about hospice. Meeting is planned for tomorrow. Patient has no other complaints or concerns. - Objective MAR Reviewed: Yes Vital Signs & Weight: Vital Signs (12 hours) Temp Pulse Resp BP BP Pulse Ox 10/15/18 04:00 97.7 F 84 18 136/60 98 10/15/18 02:45 66 16 96 10/15/18 00:00 97.2 F L 89 18 133/62 96 10/14/18 22:02 68 16 97 10/14/18 20:19 97.7 F 89 18 155/63 H 97 10/14/18 20:00 97 10/14/18 19:33 99.3 F 10/14/18 19:02 71 23 H 96 Weight Admit Weight 40.687 kg Weight 40.687 kg Most Recent Monitor Data Heart Rate from ECG 84 NIBP 119/51 NIBP BP-Mean 73 Respiration from ECG 28 SpO2 100 I&O: 10/13/18 10/14/18 10/15/18 06:59 06:59 06:59 Intake Total 400 Output Total 0 Balance 400 Result Diagrams: 10/15/18 07:49 10/15/18 07:49 Phys Exam - Physical Examination Constitutional: NAD cachectic HEENT: PERRLA, moist MMs, sclera anicteric Neck: full ROM Respiratory: clear to auscultation bilateral poor air movement Cardiovascular: RRR Gastrointestinal: soft, non-tender, no distention Musculoskeletal: pulses present Neurological: moves all 4 limbs Psychiatric: normal affect, A&O x 3 Skin: no rash, normal turgor, cap refill <2 seconds Dx/Plan (1) COPD exacerbation Code(s): J44.1 - CHRONIC OBSTRUCTIVE PULMONARY DISEASE W (ACUTE) EXACERBATION Status: Acute (2) Hyperkalemia Code(s): E87.5 - HYPERKALEMIA Status: Acute (3) CKD (chronic kidney disease) stage 3, GFR 30-59 ml/min Code(s): N18.3 - CHRONIC KIDNEY DISEASE, STAGE 3 (MODERATE) Status: Chronic (4) Chronic respiratory failure Code(s): J96.10 - CHRONIC RESPIRATORY FAILURE, UNSP W HYPOXIA OR HYPERCAPNIA Status: Chronic (5) HLD (hyperlipidemia) Code(s): E78.5 - HYPERLIPIDEMIA, UNSPECIFIED Status: Chronic (6) HTN (hypertension) Code(s): I10 - ESSENTIAL (PRIMARY) HYPERTENSION Status: Chronic Qualifiers: - Plan Plan: Acute on chronic hypoxic hypercapnic resp failure 2/2 COPD exacerbation S/P steroids, mag, duonebs in the ER w/ improvement of symptoms. RSV positive. - Patient weened from Bipap to her home 2L NC, resting comfortably - procal 0.16 - recently on azithromycin and doxycycline; zosyn started yesterday, can consider dc since procal neg. Can start course of azithro for anti-inflammatory effect. - Continue steroids - Pt maxed on spiriva, proair, advair, and Home O2. Pulm consulted, appreciate recs. Added dulera. Will need to follow with pulm outpatient. - Palliative care consulted - family meeting planned for 10/16 at 1230. Plan for patient to go home w/ HH. She is open to discussing goals of care and hospice. Indeterminant Troponin, resolved - patient's tropinin trended from 0.02 -> 0.031 -> <0.01. Likely due to demand. Hyperkalemia - K 5.2 this AM, will continue to trend, getting duonebs which will help lower potassium. No ekg changes. HTN - Continue home meds HLD - Continue home meds GERD - Continue home meds Code: DNAR Dispo: possible dc later today or tomorrow Addendum - Attending - Attending Attestation Date/Time: 10/15/18 3206 I personally evaluated the patient and discussed the management with Dr. Tabares. I agree with the History, Examination, Assessment and Plan documented above with any addition or exceptions noted below. Patient here with acute on chronic hypoxic resp failure 2/2 COPD exacerbation. She has likely end stage COPD and on O2 at home. Currently back on baseline O2 requirement. Reports breathing overall at baseline. She does have cough that is productive and nagging, likely 2/2 RSV infection that was diagnosed here. She is ambulating well and working with PT, walked 300ft x2 yesterday. Will give Mucinex for cough, adjusting home COPD meds. Family meeting planned for tomorrow with palliative care and family to discuss goals of care.
[2018-10-15] MEDS: Mometasone/Formoterol 120 PUFF INHALER INH SCH ×2 (06:40→18:34)
[2018-10-15] MEDS: predniSONE 20 MG TAB PO SCH (08:13)
[2018-10-15 08:14] LABS: #Monocytes 0.5 thou/uL (0.11-0.59); #Neutrophils 14.2 thou/uL (1.40-6.50); %Basophils 0.1 % (0.0-1.0); %Eosinophils 0.1 % (0.0-10.0); %Lymphocytes 6.5 % (21.0-51.0); %Monocytes 3.2 % (0.0-10.0); %Neutrophils 90.2 % (42.0-75.0); Hemoglobin 11.2 g/dL (12.0-16.0); Mean Corpuscular HGB CONC 31.8 g/dL (32.0-36.0); Mean Corpuscular Hemoglobin 32.4 pg (27.0-31.0); Mean Platelet Volume 8.8 fL (7.4-10.4); Platelet Count 145 thou/uL (130-400); RBC Distribution Width 13.7 % (11.5-14.5); Red Blood Cell (RBC) Count 3.45 mill/uL (4.20-5.40); White Blood Cell (WBC) Count 15.7 thou/uL (4.8-10.8)
[2018-10-15 08:37] LABS: Anion Gap 12 mmol/L (10-20); BUN (Urea Nitrogen) 46 mg/dL (9.8-20.1); Calc. Creatinine Clearance 20 mL/min (70-130); Calcium 9.3 mg/dL (7.8-10.44); Carbon Dioxide 32 mmol/L (23-31); Chloride 104 mmol/L (98-107); Estimated GFR-MDRD 47; Glucose 125 mg/dL (83-110); Potassium 4.5 mmol/L (3.5-5.1); Sodium 143 mmol/L (136-145)
[2018-10-15] MEDS ORDERED: Azithromycin 250 MG TAB PO SCH (09:00)
[2018-10-15] MEDS: guaiFENesin/DM ER PO SCH ×2 (09:04→20:03)
--- NOTE | 2018-10-15 11:22 | PRG ---
DATE OF SERVICE: 10/15/2018 SUBJECTIVE: An 88-year-old female. This morning, she is doing better. OBJECTIVE: VITAL SIGNS: Saturations are 98% on 1 L, respiratory rate 16, pulse 85, temperature 98, blood pressure 120/62. CHEST: Decreased breath sounds. No wheezing. CARDIAC: Normal S1, S2. No gallops. ABDOMEN: No masses. LABORATORY DATA: Creatinine 1.3. White count 15,000. ASSESSMENT: Chronic obstructive pulmonary disease exacerbation, respiratory failure, DNR, and cachexia. PO antibiotics, PT, supportive care. Hopefully, she can be transferred back home. Job ID: [id number]
--- NOTE | 2018-10-16 06:25 | PDOC.FM ---
- Subjective Subjective: NAEO. Reports breathing okay, but back at baseline. NO concerns or complaints this morning. Awaiting palliative care meeting this AM. - Objective Vital Signs & Weight: Vital Signs (12 hours) Temp Pulse Resp BP Pulse Ox 10/16/18 02:08 12 10/15/18 22:02 91 12 93 L 10/15/18 20:01 99 10/15/18 20:00 98.1 F 86 18 130/60 99 10/15/18 18:34 88 14 98 Weight Admit Weight 40.687 kg Weight 40.687 kg Most Recent Monitor Data Heart Rate from ECG 84 NIBP 119/51 NIBP BP-Mean 73 Respiration from ECG 28 SpO2 100 I&O: 10/14/18 10/15/18 10/16/18 06:59 06:59 06:59 Intake Total 400 1250 Output Total 0 Balance 400 1250 Result Diagrams: 10/15/18 07:49 10/15/18 07:49 Phys Exam - Physical Examination Constitutional: NAD cachectic appearing HEENT: PERRLA, moist MMs dec breath sounds throughout Cardiovascular: RRR, no significant murmur Neurological: non-focal, moves all 4 limbs Psychiatric: normal affect, A&O x 3 Dx/Plan (1) Chronic hypercapnic respiratory failure Code(s): J96.12 - CHRONIC RESPIRATORY FAILURE WITH HYPERCAPNIA Status: Chronic (2) COPD exacerbation Code(s): J44.1 - CHRONIC OBSTRUCTIVE PULMONARY DISEASE W (ACUTE) EXACERBATION Status: Resolved (3) Acute on chronic respiratory failure with hypoxia and hypercapnia Code(s): J96.21 - ACUTE AND CHRONIC RESPIRATORY FAILURE WITH HYPOXIA; J96.22 - ACUTE AND CHRONIC RESPIRATORY FAILURE WITH HYPERCAPNIA Status: Resolved (4) Former tobacco use Code(s): Z87.891 - PERSONAL HISTORY OF NICOTINE DEPENDENCE Status: Chronic (5) HLD (hyperlipidemia) Code(s): E78.5 - HYPERLIPIDEMIA, UNSPECIFIED Status: Chronic (6) HTN (hypertension) Code(s): I10 - ESSENTIAL (PRIMARY) HYPERTENSION Status: Chronic Qualifiers: - Plan Plan: #Acute on chronic hypoxic hypercapnic resp failure 2/2 COPD exacerbation -S/P steroids, mag, duonebs in the ER w/ improvement of symptoms. RSV positive. -Initial requirement of BiPAP but now on home 2L NC, resting comfortably - Procal 0.16 - Can start course of azithro for anti-inflammatory effect. - Continue PO steroids for 5 day course - Pt maxed on spiriva, proair, advair, and Home O2. Pulm consulted, appreciate recs. Added dulera. Will need to follow with pulm outpatient. - Palliative care consulted - family meeting planned for 10/16 at 1230. Plan for patient to go home w/ HH. She is open to discussing goals of care and hospice. #Macrocytic anemia -will check B9, B12, supplement as needed #Indeterminant Troponin, resolved - patient's tropinin trended from 0.02 -> 0.031 -> <0.01. Likely due to demand. #Hyperkalemia - K 5.2 this AM, will continue to trend, getting duonebs which will help lower potassium. No ekg changes. #HTN - Continue home meds #HLD - Continue home meds #GERD - Continue home meds Code: DNAR Dispo: possible dc later today or tomorrow pending pallaitve care meeting Addendum - Attending - Attending Attestation Date/Time: 10/16/18 2329 I personally evaluated the patient and discussed the management with Dr. Mcclelland I agree with the History, Examination, Assessment and Plan documented above with any addition or exceptions noted below. 88 yo F with COPD here with acute exacerbation likely 2/2 RSV. Will continue supportive care, abx and steroids and plan for with home yo[place] (possible hospice) pending palliative conversation later today. Will also clarify home regimen prior to d/c.
[2018-10-16] MEDS: Mometasone/Formoterol 120 PUFF INHALER INH SCH (06:36)
[2018-10-16 08:08] VITALS: BP 132/58; TEMP 98.4
[2018-10-16] MEDS: guaiFENesin/DM ER PO SCH (08:17)
[2018-10-16] MEDS: predniSONE 20 MG TAB PO SCH (08:17)
[2018-10-16] MEDS ORDERED: Spiriva 18 MCG CAP (Box of 5 Caps) INH SCH (09:00)
[2018-10-16] MEDS ORDERED: Azithromycin 250 MG TAB PO SCH (09:00)
--- NOTE | 2018-10-16 09:01 | PRG ---
DATE OF SERVICE: 10/16/2018 SUBJECTIVE: Josefina Gross is an 88-year-old female with end-stage COPD, cachectic lady. No distress. OBJECTIVE: VITAL SIGNS: Saturation 100% on a liter, respirations , temperature 98, pulse 86, blood pressure 132/58. CHEST: No wheezing. CARDIAC: Normal S1 and S2. No gallops. ABDOMEN: Soft. IMPRESSION: End-stage chronic obstructive pulmonary disease, stable. PLAN: She is going to be discharged home with tapering steroids over the course of a week. Job ID: [id number]
[2018-10-16 09:06] LABS: Folate (Folic Acid) 12.2 ng/mL (7.0-31.4)
--- NOTE | 2018-10-17 03:02 | DIS ---
DATE OF ADMISSION: 10/14/2018 DATE OF DISCHARGE: 10/16/2018 ADMITTING ATTENDING: Fidencio Shi MD DISCHARGE ATTENDING: Soy Diego MD RESIDENT: Zari Mcclelland MD, PGY-1. CONSULTS: 1. Pulmonology, Dr. Disla. 2. Dietary. 3. Palliative. PROCEDURES AND IMAGIN. Chest x-ray, no evidence of acute cardiopulmonary disease. 2. Acute on chronic obstructive pulmonary disease exacerbation. 3. RSV positive. SECONDARY DIAGNOSES: 1. Hypertension. 2. Chronic kidney disease 3. 3. Hyperlipidemia. 4. Former tobacco abuse. 5. Gastroesophageal reflux disease. 6. Osteoporosis. 7. Chronic obstructive pulmonary disease. DISCHARGE MEDICATIONS: 1. Zithromax 250 mg p.o. daily, four tabs. 2. DuoNeb. 3. Dulera 200 mcg/5 mcg inhaler two puffs inhaled b.i.d. 4. Prednisone 40 mg p.o. daily, five tabs. Resumed medications: 1. DuoNeb. 2. Colace. 3. ProAir two puffs inhaled q.i.d. p.r.n. 4. Omeprazole 20 mg p.o. daily. 5. Norvasc 5 mg p.o. daily. 6. Lisinopril 5 mg p.o. daily. 7. Bystolic 5 mg p.o. daily. 8. MiraLAX. 9. Ferrous gluconate 324 mg p.o. q.2 days. 10. Simvastatin 20 mg p.o. at bedtime. 11. Spiriva 2 puffs inhaled b.i.d. 12. Mirtazapine 15 g p.o. at bedtime. 13. Lasix 20 mg p.o. daily. DISCONTINUED MEDICATIONS: None. HISTORY OF PRESENT ILLNESS/HOSPITAL COURSE: Josefina Gross is a patient well known to our service with a history of severe COPD, who presents to the hospital with shortness of breath. She was given Solu-Medrol, magnesium, Zofran, DuoNeb in the ER and did require BiPAP. She was admitted for acute on chronic COPD exacerbation and treated with maximum medical medications. Pulmonology was consulted, who added on Dulera and azithromycin for anti-inflammatory properties. Over the course of the next few days, she clinically improved and was back to her home oxygen requirement of 2 L. It was discovered that the patient has likely been experiencing second smoke exposure due to her daughter, a potential trigger. Also, she tested positive for RSV. Palliative Care was consulted since patient has been in and out of the hospital several times this year. The patient chose to forgo home hospice, however, would consider it. She is going home with Home Health and was given instructions that if she ever want to go to hospice, that the door is open. In addition, it was recommended that she follow up with Pulmonology for further evaluations and for better control of her COPD. DISPOSITION: Stable. DISCHARGE INSTRUCTIONS: 1. Location: Home with Home Health. 2. Diet: Heart healthy. 3. Activity: Ad chay as tolerated. 4. Followup: Follow up with PCP, Dr. Sal Ordonez, in 3 to 5 days. Please follow up with Pulmonology, Dr. Disla, in 1 to 2 weeks. Job ID: [id number] MTDD
== END 2018-10-16 17:25 | disposition home health service (06) | DRG 189 ==
LOC: ERS 22:19 → IMCU/EMU 10-14 00:50 → T4-A 10-14 20:29
PROVIDERS: ADMIT Student in an Organized Health Care Education/Training Program; ATTEND Student in an Organized Health Care Education/Training Program
PROC: 5A09357 Assistance with Respiratory Ventilation, Less than 24 Consecutive Hours, Continuous Positive Airway Pressure (ICD-10-PCS; principal; 2018-10-14)
DX: J96.21 Acute and chronic respiratory failure with hypoxia (principal); J44.1 Chronic obstructive pulmonary disease with (acute) exacerbation; R64 Cachexia; Z68.1 Body mass index [BMI] 19.9 or less, adult; K21.9 Gastro-esophageal reflux disease without esophagitis; B97.4 Respiratory syncytial virus as the cause of diseases classified elsewhere; J96.22 Acute and chronic respiratory failure with hypercapnia; Z66 Do not resuscitate; N18.3 Chronic kidney disease, stage 3 (moderate); I12.9 Hypertensive chronic kidney disease with stage 1 through stage 4 chronic kidney disease, or unspecified chronic kidney disease; E87.5 Hyperkalemia; D53.9 Nutritional anemia, unspecified; E78.00 Pure hypercholesterolemia, unspecified; M81.0 Age-related osteoporosis without current pathological fracture; Z99.81 Dependence on supplemental oxygen; Z79.899 Other long term (current) drug therapy; Z87.891 Personal history of nicotine dependence; Z79.51 Long term (current) use of inhaled steroids
CPT/HCPCS: 36415; 51701; 71045; 80048; 80053; 81003; 82550; 82607; 82746; 82805; 83605; 83880; 84145; 84484; 85007; 85025; 85027; 87040; 87086; 87804; 87807; 93005; 94640; 94660; 94664; 94760; 96365; A4353; J1956; J2543; J7512; J7620

== ENCOUNTER 2019-04-17 17:56 | Inpatient (IN) | payer MEDICARE, OTHER ==
[2019-04-17] MEDS ORDERED: Magnesium 2 GM/50 ML BAG (IN WATER) ONE (18:31)
[2019-04-17] MEDS ORDERED: Dexamethasone 4 mg/ml Vial ONE (18:31)
[2019-04-17 18:36] LABS: Actual Bicarbonate (HCO3a) 31.8 mEq/L (22-28); Analyzer IN Cardio ER; Base Excess (BEa) 4.1 mEq/L (-2.0 to +3.0); Calcium, Ionized 1.16 mmol/L (1.12-1.30); Carboxyhemoglobin (COHb) 0.7 gm% (0.0-3.0); Hemoglobin (Hb) 13.5 g/dL (12.0-16.0); O2 Tension (PaO2) 70.4 mmHg (> 60.0); Potassium - ABG Lab 3.91 mmol/L (3.70-5.30); pH, Arterial 7.33 (7.35-7.45)
[2019-04-17 18:42] LABS: ALV-art Gradient 51.115 (0-20); CO2 Tension 62.5 mmHg (35.0-45.0); Puncture Site RRA
--- NOTE | 2019-04-17 19:29 | RAD ---
Exam: Chest one view HISTORY:Dyspnea Comparison: 10/13/2018 FINDINGS: Cardiac silhouette: Normal Aorta: Atherosclerosis Pulmonary vessels: Normal Costophrenic angles: Clear LUNGS: Hyperinflation. Chronic changes. Pneumothorax: None Osseous abnormalities: None IMPRESSION: Hyperinflation. Chronic changes. Atherosclerosis.
[2019-04-17 19:35] LABS: ALT (SGPT) 8 U/L (8-55); AST (SGOT) 19 U/L (5-34); Albumin 3.5 g/dL (3.4-4.8); Alkaline Phosphatase 56 U/L (40-110); Anion Gap 12 mmol/L (10-20); BUN (Urea Nitrogen) 19 mg/dL (9.8-20.1); Bilirubin, Total 0.5 mg/dL (0.2-1.2); CK (CPK) 75 U/L (29-168); Calc. Creatinine Clearance 0 mL/min (70-130); Calcium 8.7 mg/dL (7.8-10.44); Carbon Dioxide 27 mmol/L (23-31); Chloride 108 mmol/L (98-107); Estimated GFR-MDRD 52; Glucose 108 mg/dL (83-110); Lipase 62 U/L (8-78); Protein, Total 6.5 g/dL (6.0-8.3); Sodium 143 mmol/L (136-145)
[2019-04-17 19:43] LABS: #Eosinphils 0.5 thou/uL (0.0-0.7); #Lymphocytes 1.6 thou/uL (1.20-3.40); #Monocytes 0.5 thou/uL (0.11-0.59); #Neutrophils 6.6 thou/uL (1.40-6.50); %Basophils 0.5 % (0.0-1.0); %Eosinophils 5.2 % (0.0-10.0); %Lymphocytes 17.5 % (21.0-51.0); %Monocytes 5.4 % (0.0-10.0); %Neutrophils 71.4 % (42.0-75.0); Hemoglobin 12.9 g/dL (12.0-16.0); Mean Corpuscular HGB CONC 31.2 g/dL (32.0-36.0); Mean Corpuscular Hemoglobin 30.8 pg (27.0-31.0); Mean Corpuscular Volume 98.8 fL (78.0-98.0); Mean Platelet Volume 9.2 fL (7.4-10.4); Platelet Count 138 thou/uL (130-400); RBC Distribution Width 12.9 % (11.5-14.5); White Blood Cell (WBC) Count 9.2 thou/uL (4.8-10.8)
[2019-04-17] MEDS ORDERED: Potassium Chloride 20 MEQ TAB ONE (20:13)
[2019-04-17] MEDS ORDERED: Acetaminophen 325 MG TAB PO PRN (20:17)
[2019-04-17] MEDS ORDERED: Ondansetron PF 4 MG/2 ML Vial IVP PRN (20:17)
[2019-04-17] MEDS ORDERED: Albuterol Sulfate 2.5 mg/3 ml Neb NEB PRN (20:19)
[2019-04-17] MEDS ORDERED: Sodium Chloride 0.9% 500 ML IV SCH (20:30)
[2019-04-17] MEDS ORDERED: Budesonide 0.5 MG/2 ML NEB INH SCH (21:00)
--- NOTE | 2019-04-17 21:11 | HP ---
CHIEF COMPLAINT: "[place] so bad." HISTORY OF PRESENT ILLNESS: This is an 88-year-old female with chronic hypoxic respiratory failure, on home oxygen intermittently, COPD with last hospitalization in October, and last ER visit 2 months ago, hypertension, dyslipidemia, cachexia, who presents to the emergency room with the above complaint. The patient's daughter notes that her breathing has been worsening over the past couple of weeks as well as her p.o. intake. The patient reports that she started feeling bad yesterday and describes that as chest pain and increasing cough. The cough is productive of white sputum, and her symptoms have not been responsive to her usual home nebulizer. The patient denies any fevers, chills, nausea, vomiting, sick contacts or precipitating factors. She reports using her medications as normal. She reports with the ER interventions that she feels much better. In the emergency room, the patient was found to have COPD with exacerbation and poor air movement. She received a continuous albuterol neb, 1 L normal saline, 10 mg IV Decadron, DuoNeb and magnesium, and hospitalist called for admission. ALLERGIES: NO KNOWN ALLERGIES TO MEDICATION. MEDICATIONS: Current medications are unknown by the patient or her daughter. The ER documentation lists this; however, it has not been confirmed. 1. DuoNeb every 4 hours as needed. 2. Bystolic 5 mg daily. 3. Omeprazole 20 mg daily. 4. Amlodipine 5 mg daily. 5. Albuterol as needed. 6. Spiriva daily. 7. Polyethylene glycol 17 g daily. 8. Iron one tablet daily. 9. Advair 115-21 as needed. PAST MEDICAL HISTORY: 1. COPD. 2. Chronic respiratory failure, on oxygen therapy at 3 to 4 L nasal cannula. 3. Dyslipidemia. 4. Chronic kidney disease, stage 3. 5. GERD. PAST SURGICAL HISTORY: Denies. SOCIAL HISTORY: The patient lives with one of her daughters, she has 4 daughters and 5 sons. She quit tobacco in the past and denies any alcohol. FAMILY HISTORY: Significant for a sister who of a stroke. REVIEW OF SYSTEMS: Negative for fevers, chills, nausea, vomiting or abdominal pain. Positive for poor p.o. intake, increasing cough with sputum, as well as dyspnea. All remaining review of systems are reviewed and negative. PHYSICAL EXAMINATION: VITAL SIGNS: Blood pressure is 150s over 90s, currently her pulse is in the 80s , respirations 22, temp 98.7, and sat is 95% on 2 L nasal cannula. GENERAL: Cachectic female, awake, alert, and responsive. The patient is tachypneic, but not in distress. HEENT: Her pupils are equal and round. Oral mucosa is pink and dry. NECK: Supple and nontender. LYMPHATICS: No palpable cervical or supraclavicular lymphadenopathy. LUNGS: Poor air movement. No audible wheezing, rhonchi or rales. HEART: Distant heart sounds. No significant murmurs. Regular rate. ABDOMEN: Soft, nontender, and nondistended. EXTREMITIES: No clubbing, cyanosis or edema. NEUROLOGIC: No gross deficits. SKIN: No visible rashes. VASCULAR: 2+ dorsalis pedis pulses bilateral. PSYCHIATRIC: Appears euthymic. IMAGING: Chest x-ray, hyperinflation with chronic changes and atherosclerosis. LABORATORY DATA: Other labs reviewed. CBC; 9.2, 12.9, 41.5, 138. ABG; 7.33, 62.5, 70.4, 92%. This was on 28% FiO2. Chemistry; 143, 4.0, 108, 27, 19, 1.19, and 108. LFTs negative. BNP 198. Troponin negative. Lactic acid 1.5. EKG, personally reviewed, normal axis, sinus rhythm, inverted T-waves in the inferior leads and abnormal R-wave progression, no acute ST changes. IMPRESSION: 1. Acute on chronic hypoxic respiratory failure secondary to chronic obstructive pulmonary disease with exacerbation. 2. Hypertension, unknown control. 3. Gastroesophageal reflux disease. 4. Chronic kidney disease stage 3, stable. 5. Cachexia, severe protein-calorie malnutrition, likely secondary to chronic obstructive pulmonary disease. 6. Dyslipidemia. PLAN: 1. Admission to the hospital. 2. Continuing DuoNeb q.4 hours. We will start budesonide and Brovana nebs b.i.d., albuterol q.2 hours p.r.n. We will continue steroids with methylprednisolone 40 mg q.6 hours, and will start Levaquin at 500 mg once a day given the increasing sputum, the increasing dyspnea, and the sputum character. 3. We will need to obtain an accurate home medication list. For now, we will continue the Bystolic as it on the ER list as well as her last hospitalization from October at 5 mg once a day. We will also order the amlodipine with hold parameters on both. 4. Medications will need to be reconciled. 5. Monitor renal function daily. 6. Dietitian consult. 7. DVT prophylaxis. We will use heparin as well as SCDs. 8. GI prophylaxis. The patient is on a PPI. We will continue that here, especially with steroids. 9. Code status is full, confirmed this with the patient, and surrogate decision maker is her daughter, María. 10. Anticipated length of stay is 3 to 4 days. 11. We will also consult PT and OT to work with the patient here. 12. Reviewed the plan of care with patient and one of her daughters. No questions or further needs at the end of evaluation. 13. The patient is at high risk given age comorbidities and current presentation. Note - after admission was complete, I learned that her PCP is the [facility]- I called and spoke with a resident and they assumed care immediately with plan to cover the calls overnight and see the patient in the morning. Job ID: [id number] MTDD
[2019-04-17] MEDS: Heparin 5,000 UNITS/ML VIAL SC SCH (22:52)
[2019-04-18] MEDS: methylPREDNISolone Sod Succ 40 MG VIAL IVP SCH ×4 (00:09→17:19)
[2019-04-18 00:33] VITALS: BMI 14.3
[2019-04-18] MEDS ORDERED: methylPREDNISolone Sod Succ 40 MG VIAL ONE (05:18)
[2019-04-18] MEDS: Budesonide 0.5 MG/2 ML NEB INH SCH ×2 (07:56→19:33)
[2019-04-18] MEDS: Amlodipine 5 MG TAB PO SCH (09:05)
[2019-04-18] MEDS: Nebivolol HCl 5 MG TAB PO SCH (09:05)
[2019-04-18] MEDS: Heparin 5,000 UNITS/ML VIAL SC SCH (09:05)
[2019-04-18] MEDS: Arformoterol 15 MCG/2 ML NEB NEB SCH ×2 (11:04→19:34)
[2019-04-18 12:48] LABS: #Lymphocytes 0.9 thou/uL (1.20-3.40); #Monocytes 0.1 thou/uL (0.11-0.59); #Neutrophils 7.9 thou/uL (1.40-6.50); %Basophils 0.1 % (0.0-1.0); %Eosinophils 0.2 % (0.0-10.0); %Lymphocytes 9.8 % (21.0-51.0); %Monocytes 0.8 % (0.0-10.0); %Neutrophils 89.2 % (42.0-75.0); Hemoglobin 12.2 g/dL (12.0-16.0); Mean Corpuscular HGB CONC 30.9 g/dL (32.0-36.0); Mean Corpuscular Hemoglobin 31.3 pg (27.0-31.0); Mean Platelet Volume 9.6 fL (7.4-10.4); Platelet Count 136 thou/uL (130-400); RBC Distribution Width 12.8 % (11.5-14.5); Red Blood Cell (RBC) Count 3.89 mill/uL (4.20-5.40); White Blood Cell (WBC) Count 8.9 thou/uL (4.8-10.8)
[2019-04-18 19:48] LABS: Anion Gap 16 mmol/L (10-20); BUN (Urea Nitrogen) 21 mg/dL (9.8-20.1); Calc. Creatinine Clearance 24 mL/min (70-130); Calcium 8.5 mg/dL (7.8-10.44); Carbon Dioxide 22 mmol/L (23-31); Chloride 108 mmol/L (98-107); Estimated GFR-MDRD 59; Glucose 115 mg/dL (83-110); Sodium 141 mmol/L (136-145)
[2019-04-18] MEDS ORDERED: Prevnar 13-Val Conj/PF 0.5 ML SYRINGE IM ONE (21:00)
[2019-04-19] MEDS: methylPREDNISolone Sod Succ 40 MG VIAL IVP SCH ×3 (00:02→11:40)
[2019-04-19] MEDS: Heparin 5,000 UNITS/ML VIAL SC SCH ×2 (00:02→08:28)
--- NOTE | 2019-04-19 06:33 | PDOC.FM ---
- Subjective Subjective: NAEO. Patient was supposed to be discharged yesterday afternoon, but stated she did not feel safe going home. This morning, patient is resting comfortably in bed. No resp distress noted. States her breathing is much improved as compared to before. She states she did have a pain in her right side last night that has since resolved. She states she has a hx of gallstones. Patient states that she feels well enough to go home today. - Objective MAR Reviewed: Yes Vital Signs & Weight: Vital Signs (12 hours) Temp Pulse Resp BP Pulse Ox 04/19/19 04:00 97.7 F 87 18 149/73 H 98 04/19/19 02:42 96 16 04/19/19 00:05 97.9 F 97 20 120/64 96 04/18/19 22:19 98 16 96 04/18/19 20:00 97 04/18/19 19:33 111 H 22 H 96 Weight Admit Weight 40.324 kg Weight 40.324 kg Result Diagrams: 04/18/19 08:43 04/18/19 08:43 Phys Exam - Physical Examination Constitutional: NAD frail elderly F HEENT: PERRLA, moist MMs, sclera anicteric Neck: supple, full ROM Respiratory: clear to auscultation bilateral poor air movement Cardiovascular: RRR, no significant murmur, no rub Gastrointestinal: soft, non-tender, no distention, positive bowel sounds no CVA tenderness, no ruiz sign Musculoskeletal: no edema, pulses present Neurological: non-focal, moves all 4 limbs Psychiatric: normal affect, A&O x 3 Skin: no rash, normal turgor, cap refill <2 seconds Dx/Plan (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 Code(s): J44.9 - CHRONIC OBSTRUCTIVE PULMONARY DISEASE, UNSPECIFIED; R64 - CACHEXIA Status: Acute (2) CKD (chronic kidney disease) stage 3, GFR 30-59 ml/min Code(s): N18.3 - CHRONIC KIDNEY DISEASE, STAGE 3 (MODERATE) Status: Chronic (3) Chronic respiratory failure Code(s): J96.10 - CHRONIC RESPIRATORY FAILURE, UNSP W HYPOXIA OR HYPERCAPNIA Status: Chronic (4) Former tobacco use Code(s): Z87.891 - PERSONAL HISTORY OF NICOTINE DEPENDENCE Status: Chronic (5) HLD (hyperlipidemia) Code(s): E78.5 - HYPERLIPIDEMIA, UNSPECIFIED Status: Chronic (6) HTN (hypertension) Code(s): I10 - ESSENTIAL (PRIMARY) HYPERTENSION Status: Chronic Qualifiers: (7) COPD exacerbation Code(s): J44.1 - CHRONIC OBSTRUCTIVE PULMONARY DISEASE W (ACUTE) EXACERBATION Status: Resolved - Plan Plan: #Acute on chronic hypoxic resp failure 2/2 COPD exacerbation Patient with CXR showing hyperinflation. Patient with cough and SOB. On home NC. - Continue DuoNeb PRN. Started on budesonide and brovana. s/p methylprednisolone. Will continue on prednisone as well. Patient started on levaquin and will complete a 7 day course. - Keep O2 sats 88-92%. Provide NC as needed. - Patient cachetic from end stage COPD. Block Chopper Hand consulted. Recommended boost supplementation TID. - PT/OT consulted. Patient very weak from her condition and co-morbidities. - Palliative care consulted to assist with goals of care and advanced directives #HTN - Currently at goal. Will continue home meds #GERD - Continue PPI #CKD stage 3, stable - at baseline. Will continue to monitor #HLD - Aware, continue home meds Code: FULL Diet: reg with boost supplement TID PPx: heparin, SCDs, protonix. Dispo: Patient to be discharged today. Case discussed with Dr. Ordonez. Addendum - Attending - Attending Attestation Date/Time: 04/19/19 2250 I personally evaluated the patient and discussed the management with Dr. Tabares I agree with the History, Examination, Assessment and Plan documented above with any addition or exceptions noted below.
[2019-04-19] MEDS: Budesonide 0.5 MG/2 ML NEB INH SCH (07:28)
[2019-04-19] MEDS: Nebivolol HCl 5 MG TAB PO SCH (08:28)
[2019-04-19] MEDS: Amlodipine 5 MG TAB PO SCH (08:28)
[2019-04-19] MEDS: Arformoterol 15 MCG/2 ML NEB NEB SCH (11:02)
[2019-04-19 17:10] VITALS: BP 156/85; TEMP 97.9
--- NOTE | 2019-04-19 21:32 | EKG ---
Test Reason : Blood Pressure : / mmHG Vent. Rate : 083 BPM Atrial Rate : 083 BPM P-R Int : 120 ms QRS Dur : 108 ms QT Int : 396 ms P-R-T Axes : 070 071 -81 degrees QTc Int : 465 ms Normal sinus rhythm Minimal voltage criteria for LVH, may be normal variant T wave abnormality, consider inferior ischemia Abnormal ECG When compared with ECG of 13-OCT-2018 22:24, Criteria for Septal infarct are no longer Present T wave inversion now evident in Inferior leads T wave amplitude has decreased in Anterior leads Confirmed by Kimberlyn PERRY ([id number]) on 04/19/2019 9:31:50 PM Referred By: Prudencio SERRANO Confirmed By:Kibmerlyn PERRY
== END 2019-04-19 16:43 | disposition home health service (06) | DRG 189 ==
LOC: ERS 17:56 → T4-B 22:28
PROVIDERS: ADMIT Family Medicine; ATTEND Family Medicine
PROC: 3E0234Z Introduction of Serum, Toxoid and Vaccine into Muscle, Percutaneous Approach (ICD-10-PCS; principal; 2019-04-18)
DX: J96.21 Acute and chronic respiratory failure with hypoxia (principal); E43 Unspecified severe protein-calorie malnutrition; J44.1 Chronic obstructive pulmonary disease with (acute) exacerbation; Z68.1 Body mass index [BMI] 19.9 or less, adult; Z23 Encounter for immunization; I12.9 Hypertensive chronic kidney disease with stage 1 through stage 4 chronic kidney disease, or unspecified chronic kidney disease; E78.00 Pure hypercholesterolemia, unspecified; N18.3 Chronic kidney disease, stage 3 (moderate); K21.9 Gastro-esophageal reflux disease without esophagitis; Z99.81 Dependence on supplemental oxygen; Z87.891 Personal history of nicotine dependence; Z79.51 Long term (current) use of inhaled steroids; Z79.899 Other long term (current) drug therapy
CPT/HCPCS: 36415; 71045; 80048; 80053; 82550; 82805; 83605; 83690; 83880; 84484; 85025; 87040; 87804; 93005; 93010; 94640; 96361; 96374; 96375; J1100; J1644; J2920; J3475; J7620; J7626

== ENCOUNTER 2019-04-24 11:47 | Observation (INO) | payer MEDICARE, OTHER ==
[2019-04-24 12:21] LABS: #Eosinphils 0.3 thou/uL (0.0-0.7); #Lymphocytes 1.6 thou/uL (1.20-3.40); #Monocytes 0.3 thou/uL (0.11-0.59); #Neutrophils 3.9 thou/uL (1.40-6.50); %Basophils 0.4 % (0.0-1.0); %Eosinophils 4.3 % (0.0-10.0); %Lymphocytes 25.8 % (21.0-51.0); %Monocytes 5.4 % (0.0-10.0); Hemoglobin 13.1 g/dL (12.0-16.0); Mean Corpuscular HGB CONC 30.9 g/dL (32.0-36.0); Mean Corpuscular Hemoglobin 30.5 pg (27.0-31.0); Mean Corpuscular Volume 98.7 fL (78.0-98.0); Mean Platelet Volume 9.8 fL (7.4-10.4); Platelet Count 168 thou/uL (130-400); RBC Distribution Width 12.9 % (11.5-14.5); Red Blood Cell (RBC) Count 4.31 mill/uL (4.20-5.40); White Blood Cell (WBC) Count 6.1 thou/uL (4.8-10.8)
[2019-04-24] MEDS ORDERED: methylPREDNISolone Sod Succ/PF 125 MG/2 ML VIAL ONE (12:26)
[2019-04-24 12:59] LABS: Bacteria/HPF None Seen HPF (None Seen); Bilirubin Negative (Negative); Blood, Urine Negative (Negative); Clarity Clear (Clear); Glucose, Urine (Dipstick) Normal (Negative); Leukocyte Negative Leu/uL (Negative); Nitrite Negative (Negative); Protein, Urine (Dipstick) 30 mg/dL (Neg-Trace); RBC/HPF 0-3 HPF (0-3); Squamous Epithelial 0-3 HPF (0-3); Urobilinogen Normal mg/dL (Less than 2); WBC/HPF 0-3 HPF (0-3)
--- NOTE | 2019-04-24 13:15 | RAD ---
XR Chest 1 View Portable HISTORY: Shortness of breath COMPARISON: 04/17/2019 FINDINGS: The heart size is normal. The lungs are well expanded without focal areas of consolidation, pneumothorax or pleural effusions. The aorta is tortuous. Evidence of old granulomatous disease is again seen. IMPRESSION: No radiographic evidence of acute cardiopulmonary process.
[2019-04-24 14:11] LABS: Albumin 3.2 g/dL (3.4-4.8)
[2019-04-24 14:12] LABS: Calcium 9.4 mg/dL (7.8-10.44); Chloride 100 mmol/L (98-107); Potassium 3.9 mmol/L (3.5-5.1); Sodium 145 mmol/L (136-145)
[2019-04-24 14:13] LABS: Globulin 3.2 g/dL (2.4-3.5); Glucose 78 mg/dL (83-110); Protein, Total 6.4 g/dL (6.0-8.3)
[2019-04-24 14:14] LABS: Anion Gap 12 mmol/L (10-20); Carbon Dioxide 37 mmol/L (23-31)
[2019-04-24 14:15] LABS: Bilirubin, Total 0.5 mg/dL (0.2-1.2)
[2019-04-24 14:16] LABS: Alkaline Phosphatase 51 U/L (40-110); Calc. Creatinine Clearance 0 mL/min (70-130); Estimated GFR-MDRD 59
[2019-04-24 14:17] LABS: BUN (Urea Nitrogen) 23 mg/dL (9.8-20.1)
[2019-04-24 14:18] LABS: AST (SGOT) 17 U/L (5-34)
[2019-04-24 14:19] LABS: ALT (SGPT) 8 U/L (8-55)
--- NOTE | 2019-04-24 14:51 | PDOC.FPRHP ---
- History of Present Illness Chief Complaint: short of breath, sent from clinic History of Present Illness: Ms. Gross is a patient well known to us. She was recently discharged from the hospital last week. She states that she felt well for about 3 days after discharge, then she began having shortness of breath, increasingly productive cough, and abdominal pain. She feels that her breathing is slightly worse than normal. She states she feels like she needs to belch, but she can't. She has dull, achey abdominal pain that is a 1-2/10. She also has not had a bowel movement in the past 3 days. She states that after discharge she was not taking her breathing treatments, but she has been taking the steroid. She did get her flu shot this year. ED Course: DuoNeb x2, Methylprednisolone 125mg - Allergies/Adverse Reactions Allergies Allergy/AdvReac Type Severity Reaction Status Date / Time No Known Allergies Allergy Verified 10/14/18 01:38 - Home Medications Medication Instructions Recorded Confirmed Type Albuterol Sulfate [Proair HFA] 2 puff INH QID PRN 12/26/17 04/24/19 History Docusate [Colace] 100 mg PO BID PRN 12/26/17 04/24/19 History Omeprazole 1 cap PO DAILY 02/21/18 04/24/19 History Ferrous Gluconate 324 mg PO Q2DAYS 10/01/18 04/24/19 History Mirtazapine 15 g PO HS 10/01/18 04/24/19 History Tiotropium [place] [Spiriva] 2 puff IH BID 10/01/18 04/24/19 History Mometasone/Formoterol 200/5 2 puff INH BID-RT #1 aer 10/16/18 04/24/19 Rx [Dulera 200 Mcg/5 Mcg Inhaler] predniSONE 40 mg PO DAILY #5 tab 10/16/18 04/24/19 Rx Amlodipine [Norvasc] 5 mg PO DAILY tab 04/18/19 04/24/19 Rx Arformoterol [Brovana] 15 mcg NEB BID-RT neb 04/18/19 04/24/19 Rx Nebivolol HCl [Bystolic] 5 mg PO DAILY tab 04/18/19 04/24/19 Rx Lisinopril [Zestril] 5 mg PO Q2D 04/24/19 04/24/19 History - History PMHx: COPD CKD III HLD HTN GERD PSHx: None FHx: Non-contributory Social: Patient lives at home with daughters. - Review of Systems General: reports: fever/chills, weight/appetite/sleep changes. denies: night sweats, fatigue Eyes: denies: eye pain, vision changes ENT: denies: nasal congestion, rhinorrhea Respiratory: reports: cough, shortness of breath (on 2L at home), exercise intolerance. denies: congestion Cardiovascular: denies: chest pain, palpitation, edema Gastrointestinal: reports: nausea, constipation (x2-3 days), abdominal pain. denies: vomiting Genitourinary: reports: incontinence (at baseline). denies: dysuria, polyuria Skin: denies: rashes, lesions Musculoskeletal: reports: arthritis/arthralgias. denies: pain, tenderness, stiffness, swelling Neurological: denies: numbness, syncope, seizure, weakness Psychological: denies: anxiety, depression - Vital signs BP: 173/78, MAP: 109, Pulse: 88, Resp: 20, Temp: 99.3 (Oral), Pain: 0, O2 sat: 98 on (2L Oxygen), Wt 43kg - Physical Exam Constitutional: NAD, awake, alert and oriented -Constitutional: cachtectic HEENT: normocephalic and atraumatic, PERRLA, EOMI, conjunctiva clear, grossly normal vision, grossly normal hearing, MMM Neck: supple, FROM, trachea midline Heart: RRR, normal S1/S2, no murmurs/rubs/gallops, no edema -Lungs: Poor air movement, no wheezing. Abdomen: soft, non-tender, bowel sounds present, no masses/distention Musculoskeletal: normal tone Neurological: no focal deficit, CN II-XII intact Skin: no rash/lesions, capillary refill <2 seconds -Skin: leathery skin Heme/Lymphatic: no unusual bruising or bleeding, no purpura, no petechia Psychiatric: normal mood and affect, good judgment and insight FMR H&P: Results - Labs Result Diagrams: 04/24/19 12:05 04/24/19 13:45 Lab results: WBC 6.1 thou/uL (4.8-10.8) 04/24/19 12:05 Hgb 13.1 g/dL (12.0-16.0) 04/24/19 12:05 Hct 42.6 % (36.0-47.0) 04/24/19 12:05 MCV 98.7 fL (78.0-98.0) H 04/24/19 12:05 Plt Count 168 thou/uL (130-400) 04/24/19 12:05 Neutrophils % 64.0 % (42.0-75.0) 04/24/19 12:05 Sodium 145 mmol/L (136-145) 04/24/19 13:45 Potassium 3.9 mmol/L (3.5-5.1) 04/24/19 13:45 Chloride 100 mmol/L (98-107) 04/24/19 13:45 Carbon Dioxide 37 mmol/L (23-31) H 04/24/19 13:45 BUN 23 mg/dL (9.8-20.1) H 04/24/19 13:45 Creatinine 1.07 mg/dL (0.6-1.1) 04/24/19 13:45 Glucose 78 mg/dL (83-110) L 04/24/19 13:45 Lactic Acid 2.3 mmol/L (0.5-2.2) H 04/24/19 12:05 Calcium 9.4 mg/dL (7.8-10.44) 04/24/19 13:45 Total Bilirubin 0.5 mg/dL (0.2-1.2) 04/24/19 13:45 AST 17 U/L (5-34) 04/24/19 13:45 ALT 8 U/L (8-55) 04/24/19 13:45 Alkaline Phosphatase 51 U/L (40-110) 04/24/19 13:45 Serum Total Protein 6.4 g/dL (6.0-8.3) 04/24/19 13:45 Albumin 3.2 g/dL (3.4-4.8) L 04/24/19 13:45 Urine Ketones 10 mg/dL (Negative) A 04/24/19 12:38 Urine Blood Negative (Negative) 04/24/19 12:38 Urine Nitrite Negative (Negative) 04/24/19 12:38 Ur Leukocyte Esterase Negative [place]/uL (Negative) 04/24/19 12:38 Urine RBC 0-3 HPF (0-3) 04/24/19 12:38 Urine WBC 0-3 HPF (0-3) 04/24/19 12:38 Ur Squamous Epith Cells 0-3 HPF (0-3) 04/24/19 12:38 Urine Bacteria None Seen HPF (None Seen) 04/24/19 12:38 - Radiology Interpretation Chest x-ray Status: report reviewed by me (IMPRESSION: No radiographic evidence of acute cardiopulmonary process) FMR H&P: A/P - Problem List (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 Current Visit: No Status: Acute Code(s): J44.9 - CHRONIC OBSTRUCTIVE PULMONARY DISEASE, UNSPECIFIED; R64 - CACHEXIA (2) CKD (chronic kidney disease) stage 3, GFR 30-59 ml/min Current Visit: No Status: Chronic Code(s): N18.3 - CHRONIC KIDNEY DISEASE, STAGE 3 (MODERATE) (3) Chronic hypercapnic respiratory failure Current Visit: No Status: Chronic Code(s): J96.12 - CHRONIC RESPIRATORY FAILURE WITH HYPERCAPNIA (4) Chronic respiratory failure Current Visit: No Status: Chronic Code(s): J96.10 - CHRONIC RESPIRATORY FAILURE, UNSP W HYPOXIA OR HYPERCAPNIA (5) Former tobacco use Current Visit: No Status: Chronic Code(s): Z87.891 - PERSONAL HISTORY OF NICOTINE DEPENDENCE (6) HLD (hyperlipidemia) Current Visit: No Status: Chronic Code(s): E78.5 - HYPERLIPIDEMIA, UNSPECIFIED - Plan COPD Exacerbation - Patient was recently hospitalized for similar symptoms. Upon discharge she did not continue her breathing treatments or inhalers. - Scheduled DuoNebs q4hr and prn Albuterol nebs q2hr - Will continue prednisone 40mg - We do not feel that she needs antibiotics at this time, due to recent antibiotic use. - Procal pending - Palliative care consulted for goals of care and complex decision making, appreciate recommendations. HTN - continue home medications - reconciled from clinic chart. CKD - patient is actually doing better than baseline creatinine of 1.3 GERD - continue PPI FMR H&P: Upper Level - Plan Date/Time: 04/24/19 1450 ITheresa MD, have evaluated this patient and agree with findings/plan as outlined by international marketing manager resident. Pertinent changes/additions are listed here. This is an 88yo AA F who was sent over from [facility] due to SOB. Patient was recently discharged from the hospital for a COPD exacerbation. She was sent home with antibiotics and prednisone. Per patient, she has only been taking the prednisone over the weekend. She has not taken her abx or other inhalers for COPD. She states that starting yesterday she was feeling more SOB and increased cough and sputum production. She sputum has been white. Endorses subjective fever/chills. Denies chest pain. Endorses abdominal pain - states has not had a BM in the last 3 days. Patient states that her SOB is already improved in the ER after a breathing treatment. Pertinent physical exam - poor air movement on resp exam, RRR, cachetic. Will admit to medical, obs for COPD exacerbation. Will start steroids. Will hold off on abx until procal returns. Will schedule duonebs and space as tolerated. Will place palliative care consult as patient seems to want DNR but family encourages full code. She will likely be discharged tomorrow or the next day and will need extensive counselling on taking her medications upon discharge. She is not interested in placement. Lives at home with with daughter taking care of her. Case discussed with Dr. Shi Addendum - Attending - Attending Attestation Date/Time: 04/24/19 8026 I personally evaluated the patient and discussed the management with Dr. Adrian/ Rayshawn. I agree with the History, Examination, Assessment and Plan documented above with any addition or exceptions noted below. Patient with history of COPD on home O2 here with progressive shortness of breath. She was hospitalized last week and felt well, but did not continue her home meds after discharge. Reports clear/white sputum and increased shortness of breath over the last few days. Lungs reveal diminished breath sounds b/l but no evidence of infiltrate. Labs are overall stable. Her CXR does not show acute change from previous. Patient will be placed in obs status for COPD exacerbation. She is hypoxic on room air but this is chronic and no change from baseline oxygen requirement. Continue neb treatments and steroids. Defer on abx for now unless conditions changes. Med compliance discussion. Anticipate 1-2 days hospitalization required.
[2019-04-24 15:25] LABS: Lactic Acid 1.4 mmol/L (0.5-2.2)
[2019-04-24] MEDS ORDERED: Albuterol Sulfate 2.5 mg/3 ml Neb NEB PRN ×2 (15:25→16:34)
[2019-04-24] MEDS ORDERED: Acetaminophen 325 MG TAB PO PRN ×2 (15:34→16:34)
[2019-04-24] MEDS ORDERED: Docusate 100 MG CAP PO PRN ×2 (15:43→16:34)
[2019-04-24] MEDS ORDERED: Lisinopril 5 MG TAB PO SCH (15:45)
[2019-04-24] MEDS ORDERED: Non-Formulary Item 1 EACH (Ferrous Gluconate [Ferrous Gluconate] 324 MG) PO SCH (15:45)
[2019-04-24] MEDS ORDERED: Benzonatate 100 MG CAP PO PRN ×2 (15:52→16:34)
[2019-04-24 16:38] VITALS: BMI 13.9
[2019-04-24] MEDS ORDERED: hydrALAZINE 20 MG/ML VIAL SLOW IVP PRN (17:49)
[2019-04-24] MEDS ORDERED: Mometasone/Formoterol 120 PUFF INHALER INH SCH (18:30)
[2019-04-24] MEDS: Mometasone/Formoterol 120 PUFF INHALER INH SCH (18:52)
[2019-04-24] MEDS: guaiFENesin ER 600 MG TAB PO SCH (20:17)
[2019-04-24] MEDS ORDERED: TIOTROPIUM BROMIDE IH SCH ×2 (21:00)
[2019-04-24] MEDS ORDERED: guaiFENesin ER 600 MG TAB PO SCH (21:00)
[2019-04-24] MEDS ORDERED: Mirtazapine 15 MG TAB PO SCH (21:00)
--- NOTE | 2019-04-25 06:46 | PDOC.FM ---
- Subjective Subjective: NAEO. Patient resting comfortably in bed. No family at the bedside. States her breathing is much improved from yesterday. Denies SOB, chest pain, abdominal pain. Patient states she would be comfortable going home later today. Discussed with patient that she needs to make sure to take her inhalers when she goes home. - Objective MAR Reviewed: Yes Vital Signs & Weight: Vital Signs (12 hours) Temp Pulse Resp BP Pulse Ox 04/25/19 04:00 97.7 F 82 16 139/68 96 04/25/19 01:58 68 15 94 L 04/25/19 00:34 96 04/25/19 00:00 97.9 F 95 16 125/65 99 04/24/19 22:12 72 16 95 04/24/19 19:10 97.1 F L 90 20 161/62 H 97 04/24/19 18:50 66 18 95 Weight Weight 36.883 kg I&O: 04/23/19 04/24/19 04/25/19 06:59 06:59 06:59 Intake Total 240 Balance 240 Result Diagrams: 04/24/19 12:05 04/24/19 13:45 Phys Exam - Physical Examination Constitutional: NAD frail, cachetic HEENT: PERRLA, moist MMs, sclera anicteric Neck: supple, full ROM Respiratory: no wheezing, no rales, no rhonchi, clear to auscultation bilateral poor air movement diffusely Cardiovascular: RRR, no significant murmur, no rub Gastrointestinal: soft, non-tender, no distention, positive bowel sounds Musculoskeletal: pulses present Neurological: non-focal, normal sensation, moves all 4 limbs Psychiatric: normal affect, A&O x 3 Skin: no rash, cap refill <2 seconds Deviation from normal: poor skin turgor Dx/Plan (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 Code(s): J44.9 - CHRONIC OBSTRUCTIVE PULMONARY DISEASE, UNSPECIFIED; R64 - CACHEXIA Status: Acute (2) CKD (chronic kidney disease) stage 3, GFR 30-59 ml/min Code(s): N18.3 - CHRONIC KIDNEY DISEASE, STAGE 3 (MODERATE) Status: Chronic (3) Chronic hypercapnic respiratory failure Code(s): J96.12 - CHRONIC RESPIRATORY FAILURE WITH HYPERCAPNIA Status: Chronic (4) Chronic respiratory failure Code(s): J96.10 - CHRONIC RESPIRATORY FAILURE, UNSP W HYPOXIA OR HYPERCAPNIA Status: Chronic (5) Former tobacco use Code(s): Z87.891 - PERSONAL HISTORY OF NICOTINE DEPENDENCE Status: Chronic (6) HLD (hyperlipidemia) Code(s): E78.5 - HYPERLIPIDEMIA, UNSPECIFIED Status: Chronic - Plan Plan: #COPD Exacerbation Patient was recently hospitalized for similar symptoms. Upon discharge she did not continue her breathing treatments or inhalers. - Scheduled DuoNebs q4hr and prn Albuterol nebs q2hr. Patient satting well on her home O2 this AM. - Will continue prednisone 40mg - Procal negative, no abx needed #Cachexia 2/2 End stage COPD Scarifier Operator consulted at last hospitalization. Will continue with regular diet. Boost supplementation TID. #HTN - BP at goal. Last BP 136/68. Continue home medications #CKD - patient is actually doing better than baseline creatinine of 1.3 #GERD - continue PPI Social: CM consulted for more assistance with for medical management. Palliative care consulted to assist with advanced directives and having that discussion with family. Code: Full Ppx: lovenox, PPI Dispo: Dc later today. Case discussed with Dr. Shi. Addendum - Attending - Attending Attestation Date/Time: 04/25/19 1028 I personally evaluated the patient and discussed the management with Dr. Tabares. I agree with the History, Examination, Assessment and Plan documented above with any addition or exceptions noted below. Patient doing well this morning and back to baseline respiratory status. She is on her home O2 level. She had bounceback due to med noncompliance at home, needs to be counselled on the importance of continuing her home meds to prevent further hospitalizations. If feeling well later today, stable for discharge home.
[2019-04-25] MEDS: Mometasone/Formoterol 120 PUFF INHALER INH SCH (07:14)
[2019-04-25] MEDS ORDERED: Non-Formulary Item 1 EACH (Omeprazole [Omeprazole] 1 CAP) PO SCH (09:00)
[2019-04-25] MEDS ORDERED: predniSONE 20 MG TAB PO SCH ×4 (09:00)
[2019-04-25] MEDS ORDERED: Amlodipine 5 MG TAB PO SCH ×2 (09:00)
[2019-04-25] MEDS ORDERED: Nebivolol HCl 5 MG TAB PO SCH ×2 (09:00)
[2019-04-25] MEDS ORDERED: Ferrous Gluconate 324 MG TAB PO SCH (09:00)
[2019-04-25] MEDS ORDERED: Enoxaparin Sodium 40 MG/0.4 ML SYRINGE SC SCH ×2 (09:00)
[2019-04-25] MEDS ORDERED: Lisinopril 5 MG TAB PO SCH (09:00)
[2019-04-25] MEDS: guaiFENesin ER 600 MG TAB PO SCH (09:37)
[2019-04-25 11:57] VITALS: BP 134/68; TEMP 98.7
--- NOTE | 2019-04-26 11:51 | DIS ---
DATE OF ADMISSION: 04/24/2019 DATE OF DISCHARGE: 04/25/2019 RESIDENT: Theresa Tabares MD ADMITTING ATTENDING: Fidencio Shi MD DISCHARGE ATTENDING: Fidencio Shi MD. CONSULTS: None. PROCEDURES: None. DISCHARGE MEDICATIONS: 1. Tessalon Perles 100 mg oral every 4 hours as needed. 2. Mucinex 600 mg oral every 12 hours. 3. Prednisone 40 mg daily. 4. Colace 100 mg oral twice daily as needed. 5. ProAir HFA two puffs inhalation four times daily as needed. 6. Omeprazole 1 capsule oral daily. 7. Ferrous gluconate 324 mg oral every other day. 8. Mirtazapine oral at bedtime. 9. Spiriva 2 puffs inhalation twice daily. 10. Dulera 2 puffs inhalation twice daily. 11. Norvasc 5 mg oral daily. 12. Bystolic 5 mg oral daily. 13. Lisinopril 5 mg oral every other day. DISCONTINUED MEDICATIONS: Brovana. PRIMARY DIAGNOSIS: COPD exacerbation. SECONDARY DIAGNOSES: 1. Hypertension. 2. Chronic kidney disease. 3. Gastroesophageal reflux disease. HISTORY OF PRESENT ILLNESS/HOSPITAL COURSE: This is an 88-year-old female who presented to the ER for increased cough, sputum production, and shortness of breath. The patient was recently discharged 3 days prior from the hospital for COPD exacerbation. She said that she initially felt better, but than her symptoms began to worsen. She went to the clinic and was sent over for shortness of breath. In the ER, she was given DuoNeb x2, as well as methylprednisolone. She was admitted to the medical floor for mild COPD exacerbation. The patient's vital signs remained stable and she was saturating 98% on her home 2 L nasal cannula. The patient's chest x-ray showed no acute evidence of any infectious process. The patient was given DuoNeb treatments while she was here. She was not given antibiotics as her procalcitonin was negative and chest x-ray did not show any infection. The patient's chronic conditions remained stable throughout her stay. I called the patient's daughter who is her care provider at home and went over all the patient's medications to make sure that she takes them when she goes home. I discussed with the daughter and the patient that she needs to make sure to take her daily inhalers that is why she does not return to the hospital. She is to continue Boost supplementation t.i.d. The patient will need to have an advance directive discussion with her PCP on an outpatient setting. DISPOSITION: Stable. DISCHARGE INSTRUCTIONS: 1. Location: Home with home health. 2. Activity: Ad chay. 3. Regular with Boost supplementation t.i.d. 4. Follow up with PCP, Dr. Ordonez within one week. Job ID: [id number] MTDD
== END 2019-04-25 15:10 | disposition home health service (06) ==
LOC: ERS 11:47 → T4-B 15:07 → ERS 16:08
PROVIDERS: ADMIT Student in an Organized Health Care Education/Training Program; ATTEND Student in an Organized Health Care Education/Training Program
DX: J44.1 Chronic obstructive pulmonary disease with (acute) exacerbation (principal); J96.12 Chronic respiratory failure with hypercapnia; R64 Cachexia; I12.9 Hypertensive chronic kidney disease with stage 1 through stage 4 chronic kidney disease, or unspecified chronic kidney disease; N18.3 Chronic kidney disease, stage 3 (moderate); K21.9 Gastro-esophageal reflux disease without esophagitis; E78.5 Hyperlipidemia, unspecified; Z68.1 Body mass index [BMI] 19.9 or less, adult; Z79.51 Long term (current) use of inhaled steroids; Z79.52 Long term (current) use of systemic steroids; Z79.899 Other long term (current) drug therapy; Z87.891 Personal history of nicotine dependence
CPT/HCPCS: 71045; 80053; 83605; 84145; 85025; 87040; 87086; 93005; 94640 ×5; 96372; 96374; 97139 ×3; 99291; G0378 ×3; 36415; 81003; 81015; A4353; J1650; J2930; J7512; J7620

== ENCOUNTER 2019-07-08 17:36 | Observation (INO) | payer MEDICARE, MEDICAID ==
--- NOTE | 2019-07-08 18:57 | RAD ---
Chest one view HISTORY: Cough. COMPARISON: 04/24/2019. FINDINGS: Cardiac silhouette is magnified by projection. Pulmonary vasculature is unremarkable. Media stinum is midline with aortic calcification. Calcified mediastinal lymph nodes are consistent with healed granulomatous disease. Lungs remain prominently hyperinflated. No lobar consolidation or evide nce of pneumothorax. campus monitor leads overlie the chest. IMPRESSION: Emphysema. No active cardiopulmonary abnormalities are demonstrated. Atherosclerosis.
[2019-07-08 19:05] LABS: #Basophils 0.1 thou/uL (0.0-0.2); #Eosinphils 0.3 thou/uL (0.0-0.7); #Monocytes 0.4 thou/uL (0.11-0.59); #Neutrophils 2.4 thou/uL (1.40-6.50); %Basophils 1.2 % (0.0-1.0); %Eosinophils 7.4 % (0.0-10.0); %Lymphocytes 24.2 % (21.0-51.0); %Neutrophils 58.1 % (42.0-75.0); Hemoglobin 10.7 g/dL (12.0-16.0); Mean Corpuscular HGB CONC 32.4 g/dL (32.0-36.0); Mean Corpuscular Hemoglobin 32.3 pg (27.0-31.0); Mean Corpuscular Volume 99.5 fL (78.0-98.0); Mean Platelet Volume 9.2 fL (7.4-10.4); Platelet Count 155 thou/uL (130-400); RBC Distribution Width 14.2 % (11.5-14.5); Red Blood Cell (RBC) Count 3.32 mill/uL (4.20-5.40); White Blood Cell (WBC) Count 4.2 thou/uL (4.8-10.8)
[2019-07-08] MEDS ORDERED: methylPREDNISolone Sod Succ/PF 125 MG/2 ML VIAL ONE (19:21)
[2019-07-08 19:29] LABS: ALT (SGPT) 15 U/L (8-55); AST (SGOT) 20 U/L (5-34); Alkaline Phosphatase 77 U/L (40-110); Anion Gap 11 mmol/L (10-20); BUN (Urea Nitrogen) 27 mg/dL (9.8-20.1); Bilirubin, Total 0.3 mg/dL (0.2-1.2); Calc. Creatinine Clearance 0 mL/min (70-130); Carbon Dioxide 31 mmol/L (23-31); Chloride 104 mmol/L (98-107); Estimated GFR-MDRD 48; Globulin 3.5 g/dL (2.4-3.5); Glucose 92 mg/dL (83-110); Potassium 5.6 mmol/L (3.5-5.1); Protein, Total 7.5 g/dL (6.0-8.3); Sodium 140 mmol/L (136-145)
[2019-07-08 19:38] LABS: Calcium 9.7 mg/dL (7.8-10.44)
[2019-07-08] MEDS ORDERED: Albuterol Sulfate 2.5 mg/3 ml Neb ONE (20:03)
--- NOTE | 2019-07-08 21:45 | PDOC.FPRHP ---
- History of Present Illness Chief Complaint: Shortness of breath History of Present Illness: Ms. Gross is an 88yo AAF who presents to the ED for shortness of breath that she describes as a "cool breeze across her chest" for the past 3 days. She usually has shortness of breath with exertion. She wears 2L NC O2 at home at baseline. She has a PMH significant for COPD. Daughter states she may have history of CHF, but is not sure. ED Course: NS 500mL, 5mg albuterol, 125mg solumedrol, duoneb - Allergies/Adverse Reactions Allergies Allergy/AdvReac Type Severity Reaction Status Date / Time No Known Allergies Allergy Verified 10/14/18 01:38 - Home Medications Medication Instructions Recorded Confirmed Type Ferrous Gluconate 324 mg PO DAILY 10/01/18 07/09/19 History Nebivolol HCl [Bystolic] 5 mg PO DAILY tab 04/18/19 07/09/19 Rx Lisinopril [Zestril] 5 mg PO DAILY 04/24/19 07/09/19 History Albuterol Sulfate [Albuterol 2.5 mg NEB Q6H PRN 07/09/19 07/09/19 History Sulfate Neb] Albuterol Sulfate [Proair HFA] 2 puff INH Q6HR PRN 07/09/19 07/09/19 History Amlodipine Besylate [amLODIPine 5 mg PO DAILY 07/09/19 07/09/19 History Besylate] Ammonium Lactate [Ammonium Lactate 1 applic TOP BID 07/09/19 07/09/19 History 12% Lotion] Escitalopram Oxalate 5 mg PO DAILY 07/09/19 07/09/19 History Famotidine [Pepcid] 20 mg PO DAILY 07/09/19 07/09/19 History Nitroglycerin [Nitrostat] 0.4 mg SL Q5MIN 07/09/19 07/09/19 History Simvastatin [Zocor] 20 mg PO HS 07/09/19 07/09/19 History Umeclidinium [place] [Incruse 1 inh IH DAILY 07/09/19 07/09/19 History Ellipta] - History PMHx: COPD CKD III HLD HTN GERD PSHx: None FHx: Non-contributory Social: Patient lives at home with daughters. - Review of Systems General: denies: fever/chills, weight/appetite/sleep changes, night sweats, fatigue Eyes: denies: eye pain, vision changes ENT: denies: nasal congestion, rhinorrhea Respiratory: reports: shortness of breath, exercise intolerance. denies: cough , congestion Cardiovascular: reports: chest pain, edema. denies: palpitation, paroxysmal nocturnal dyspnea, orthopnea Gastrointestinal: denies: nausea, vomiting, diarrhea, constipation, abdominal pain Genitourinary: reports: incontinence. denies: dysuria, polyuria, discharge Skin: denies: rashes, lesions Musculoskeletal: reports: pain. denies: tenderness, stiffness Neurological: denies: numbness, syncope, seizure, weakness Psychological: denies: anxiety, depression - Vital signs BP: 164/55, Pulse: 72, Resp: 18, O2 sat: 100 on (2L Oxygen), Weight: 41.3kg - Physical Exam Constitutional: NAD, awake, alert and oriented -Constitutional: Cachectic HEENT: normocephalic and atraumatic, PERRLA, EOMI, conjunctiva clear, grossly normal vision, grossly normal hearing, MMM -HEENT: No teeth Neck: supple, FROM, trachea midline Heart: RRR, normal S1/S2, no murmurs/rubs/gallops Lungs: CTAB, no respiratory distress, good air movement, no rales/rhonchi, no wheezing, no retractions Abdomen: soft, non-tender Musculoskeletal: normal structure, normal tone -Musculoskeletal: Deconditioned Neurological: no focal deficit, CN II-XII intact Skin: no rash/lesions, good turgor Heme/Lymphatic: no unusual bruising or bleeding, no purpura, no petechia Psychiatric: normal mood and affect, good judgment and insight, intact recent and remote memory FMR H&P: Results - Labs Result Diagrams: 07/08/19 18:31 07/09/19 03:30 Lab results: WBC 4.2 thou/uL (4.8-10.8) L 07/08/19 18: Hgb 10.7 g/dL (12.0-16.0) L 07/08/19 18:31 Hct 33.1 % (36.0-47.0) L 07/08/19 18: MCV 99.5 fL (78.0-98.0) H 07/08/19 18:31 Plt Count 155 thou/uL (130-400) 07/08/19 18:31 Neutrophils % 58.1 % (42.0-75.0) 07/08/19 18:31 Sodium 140 mmol/L (136-145) 07/08/19 18:31 Potassium 5.6 mmol/L (3.5-5.1) H 07/08/19 18:31 Chloride 104 mmol/L (98-107) 07/08/19 18:31 Carbon Dioxide 31 mmol/L (23-31) 07/08/19 18:31 BUN 27 mg/dL (9.8-20.1) H 07/08/19 18:31 Creatinine 1.27 mg/dL (0.6-1.1) H 07/08/19 18:31 Glucose 92 mg/dL (83-110) 07/08/19 18:31 Calcium 9.7 mg/dL (7.8-10.44) 07/08/19 18:31 Total Bilirubin 0.3 mg/dL (0.2-1.2) 07/08/19 18:31 AST 20 U/L (5-34) 07/08/19 18:31 ALT 15 U/L (8-55) 07/08/19 18:31 Alkaline Phosphatase 77 U/L (40-110) 07/08/19 18:31 B-Natriuretic Peptide 455.2 pg/mL (0-100) H 07/08/19 18:31 Serum Total Protein 7.5 g/dL (6.0-8.3) 07/08/19 18:31 Albumin 4.0 g/dL (3.4-4.8) 07/08/19 18:31 - Radiology Interpretation Chest x-ray Status: report reviewed by me (IMPRESSION: Emphysema. No active cardiopulmonary abnormalities are demonstrated. Atherosclerosis.) FMR H&P: A/P - Problem List (1) Hyperkalemia Status: Acute Code(s): E87.5 - HYPERKALEMIA (2) CKD (chronic kidney disease) stage 3, GFR 30-59 ml/min Status: Chronic Code(s): N18.3 - CHRONIC KIDNEY DISEASE, STAGE 3 (MODERATE) (3) Former tobacco use Status: Chronic Code(s): Z87.891 - PERSONAL HISTORY OF NICOTINE DEPENDENCE (4) HLD (hyperlipidemia) Status: Chronic Code(s): E78.5 - HYPERLIPIDEMIA, UNSPECIFIED (5) HTN (hypertension) Status: Chronic Code(s): I10 - ESSENTIAL (PRIMARY) HYPERTENSION Qualifiers: (6) COPD exacerbation Status: Resolved Code(s): J44.1 - CHRONIC OBSTRUCTIVE PULMONARY DISEASE W ( ACUTE) EXACERBATION - Plan Hyperkalemia - K of 5.6 - Will give 20mg of lasix and kayexelate and repeat BMP in the morning. CHF, possible exacerbation - will give 1x dose of lasix. - Last ECHO > 1 year ago. EF 40-45%, possible diastolic dysfxn, . - Ordered repeat for tomorrow. COPD - c/o increasing shortness of breath. - Albuterol nebs and Duonebs prn - continue home inhalers HTN - continue home medications CKD - Cr. 1.27 GERD - continue PPI Disposition/LOS: Dispo: Stable, observation status. Code: DNAR VTE: Lovenox, renally dosed. FMR H&P: Upper Level - Plan Date/Time: 07/08/192142 I, Adrián Gordillo MD, have evaluated this patient and agree with findings/ plan as outlined by video production intern resident. Pertinent changes/additions are listed here. CHF exacerbation - Last ECHO in 2018 showed EF 40-45% with moderate - Will repeat - IV Lasix - Strict I&Os - Optimize medical management Hyperkalemia - IV lasix - Kayexalate - Recheck BMP in AM COPD - Continue home regimen - Duonebs - Supplemental O2 as needed All other chronic conditions reviewed and medications to be restarted as appropriate. PCP: MARCELINO CODE STATUS: DNAR Disposition: Stable, will admit for observation overnight and recheck of potassium in AM for hopeful discharge tomorrow. Addendum - Attending - Attending Attestation Date/Time: 07/08/192203 I personally evaluated the patient and discussed the management with Dr. Adrian and Dr. Gordillo I agree with the History, Examination, Assessment and Plan documented above with any addition or exceptions noted below. 88 yo female with multiple medical conditions presents for evaluation of LOERA and SOB described as a "cool breeze." BNP noted to be elevated suggesting mild overload. Patient noted to have mild MARISA with hyperkalemia on CKD III. Will need to hold ACEI and spironolactone. Will start lasix and olivia-ex. Monitor on tele. Trend trop. Up date ECHO as needed. Emily
[2019-07-08] MEDS ORDERED: Acetaminophen 325 MG TAB PO PRN (22:06)
[2019-07-08] MEDS ORDERED: Albuterol Sulfate 2.5 mg/3 ml Neb NEB PRN (22:06)
[2019-07-08] MEDS ORDERED: Calcium Carbonate 500 MG ChewTAB PO PRN (22:06)
[2019-07-08 22:11] LABS: Troponin I 0.011 ng/mL (< 0.028)
[2019-07-08] MEDS ORDERED: Furosemide 20 MG/2 ML VIAL SLOW IVP SCH (22:15)
[2019-07-09 01:10] LABS: Troponin I 0.021 ng/mL (< 0.028)
[2019-07-09] MEDS ORDERED: Furosemide 20 MG/2 ML VIAL ONE (01:50)
[2019-07-09 04:04] LABS: Anion Gap 16 mmol/L (10-20); BUN (Urea Nitrogen) 28 mg/dL (9.8-20.1); Calc. Creatinine Clearance 0 mL/min (70-130); Calcium 9.6 mg/dL (7.8-10.44); Carbon Dioxide 26 mmol/L (23-31); Chloride 104 mmol/L (98-107); Estimated GFR-MDRD 47; Glucose 205 mg/dL (83-110); Potassium 4.9 mmol/L (3.5-5.1); Sodium 141 mmol/L (136-145)
[2019-07-09] MEDS ORDERED: Docusate 100 MG CAP PO PRN (04:44)
[2019-07-09] MEDS ORDERED: Benzonatate 100 MG CAP PO PRN (04:44)
[2019-07-09] MEDS ORDERED: PROVENTIL INHALER 6.7 G (200 INHALATIONS) INH PRN (04:44)
[2019-07-09] MEDS: Ipratropium Bromide 2.5 ml Neb NEB SCH ×2 (06:19→13:58)
--- NOTE | 2019-07-09 06:28 | PDOC.FM ---
- Subjective Subjective: NAEO. Patient resting comfortably in bed. Patient states that she does not have any difficulty breathing this AM. She states she is feeling well. Still endorsing a "cold breeze" across her anterior chest. Denies any SOB, chest pain , palpitations, cough, NVD, abdominal pain. - Objective MAR Reviewed: Yes Vital Signs & Weight: Vital Signs (12 hours) Pulse Resp Pulse Ox 07/09/19 06:19 71 26 H 94 L Result Diagrams: 07/08/19 18:31 07/09/19 03:30 Phys Exam - Physical Examination Constitutional: NAD cachectic appearing HEENT: PERRLA, moist MMs, sclera anicteric Neck: supple, full ROM Respiratory: no wheezing, no rales, no rhonchi, clear to auscultation bilateral Cardiovascular: RRR, no significant murmur, no rub Gastrointestinal: soft, non-tender, no distention, positive bowel sounds Musculoskeletal: no edema, pulses present Neurological: non-focal Psychiatric: normal affect, A&O x 3 Skin: no rash, normal turgor, cap refill <2 seconds Dx/Plan (1) Hyperkalemia Code(s): E87.5 - HYPERKALEMIA Status: Acute (2) Pulmonary cachexia due to COPD Code(s): J44.9 - CHRONIC OBSTRUCTIVE PULMONARY DISEASE, UNSPECIFIED; R64 - CACHEXIA Status: Acute (3) CKD (chronic kidney disease) stage 3, GFR 30-59 ml/min Code(s): N18.3 - CHRONIC KIDNEY DISEASE, STAGE 3 (MODERATE) Status: Chronic (4) HLD (hyperlipidemia) Code(s): E78.5 - HYPERLIPIDEMIA, UNSPECIFIED Status: Chronic (5) HTN (hypertension) Code(s): I10 - ESSENTIAL (PRIMARY) HYPERTENSION Status: Chronic Qualifiers: - Plan Plan: CHF exacerbation Last ECHO in 2018 showed EF 40-45% with moderate . IV lasix x 1. - Echo pending - Strict I&Os - Optimize medical management Hyperkalemia, resolved K 5.6 on admission. - IV lasix, Kayexalate - K 4.9 this AM COPD Satting well on her home O2 on admission. - Continue home regimen - Duonebs - Supplemental O2 as needed CKD stage 3 BUN/Cr at baseline on admission - Will monitor HTN - Continue home meds GERD - Continue home meds Social: patient currently living with family, CM consulted for possible placement or more help at home. PCP: MARCELINO CODE STATUS: DNAR DVT: heparin Disposition: likely discharge later today vs tomorrow Case discussed with Dr. Acevedo
[2019-07-09] MEDS ORDERED: Mometasone/Formoterol 120 PUFF INHALER INH SCH (06:30)
[2019-07-09 08:45] VITALS: TEMP 98; BMI 14.6
[2019-07-09] MEDS ORDERED: Enoxaparin Sodium 30 MG/0.3 ML SYRINGE SC SCH (09:00)
[2019-07-09] MEDS ORDERED: Amlodipine 5 MG TAB PO SCH (09:00)
[2019-07-09] MEDS ORDERED: Lisinopril 5 MG TAB PO SCH (09:00)
[2019-07-09] MEDS ORDERED: guaiFENesin ER 600 MG TAB PO SCH (09:00)
[2019-07-09] MEDS ORDERED: Nebivolol HCl 5 MG TAB PO SCH (09:00)
[2019-07-09] MEDS ORDERED: Ferrous Gluconate 324 MG TAB PO SCH (09:00)
--- NOTE | 2019-07-09 11:13 | PRG ---
DATE OF SERVICE: 07/09/2019 ADDENDUM: This is an addendum to the note of Dr. Theresa Tabares. Ms. Gross is an 88-year-old black female patient with history of COPD. She has been admitted with a mild exacerbation, given DuoNeb as well as Solu-Medrol intravenously. She is already looking and feeling much better and is likely nearing time where she could be discharged. She is slightly anemic with a hemoglobin of 10.7, hematocrit of 33.1 with an MCV of 95. Her chemistries initially demonstrated a potassium of 5.6 and this was treated and brought down to 4.9. Her BUN is 27, creatinine is 1.27, corresponding to a GFR of 48. Her BNP was very slightly elevated at 455.2. In the event, she is recovered nicely and as stated above, can likely be discharged later today or early tomorrow. It might be a good idea to discuss placement with her family as well. Job ID: [id number]
[2019-07-09] MEDS ORDERED: Amlodipine 5 MG TAB ONE ×2 (11:20→12:26)
[2019-07-09] MEDS: Heparin 5,000 UNITS/ML VIAL SC SCH ×2 (12:30→14:02)
[2019-07-09 16:24] VITALS: BP 160/90
[2019-07-09] MEDS ORDERED: Mirtazapine 15 MG TAB PO SCH (21:00)
--- NOTE | 2019-07-10 14:09 | DIS ---
DATE OF ADMISSION: 07/08/2019 DATE OF DISCHARGE: 07/09/2019 RESIDENT: Theresa Tabares MD ADMITTING ATTENDING: Bina Yu MD DISCHARGE ATTENDING: Brad Acevedo MD CONSULTS: None. PROCEDURES PERFORMED: 1. Chest x-ray on 07/08/2019, showing emphysema and no active cardiopulmonary abnormalities. 2. Echocardiogram on 07/09/2019 showing an ejection fraction of 60% to 65%, diastolic dysfunction, mild mitral regurgitation, moderate aortic stenosis, mild aortic regurg, severe tricuspid regurg, pulmonary hypertension. DISCHARGE MEDICATIONS: 1. Ferrous gluconate 324 mg oral daily. 2. Bystolic 5 mg oral daily. 3. Lisinopril 5 mg oral daily. 4. Incruse Ellipta one inhalation daily. 5. Escitalopram 5 mg oral daily. 6. Simvastatin 20 mg oral at bedtime. 7. Nitrostat 0.4 mg sublingual every 5 minutes as needed. 8. Ammonium lactate one application topically twice daily as needed. 9. Pepcid 20 mg oral daily. 10. ProAir 2 puffs inhalation every 6 hours as needed. 11. Albuterol sulfate 2.5 mg nebulizer every 6 hours as needed. 12. Amlodipine 5 mg oral daily. DISCONTINUED MEDICATIONS: None. PRIMARY DIAGNOSES: Hyperkalemia, mild congestive heart failure exacerbation. SECONDARY DIAGNOSES: Chronic obstructive pulmonary disease, hypertension, chronic kidney disease stage 3, gastroesophageal reflux disease. HISTORY OF PRESENT ILLNESS/HOSPITAL COURSE: This is an 88-year-old female who is well known to the service, who presented to the ER for shortness of breath that she described as a "cold breeze across her chest" that has been happening for the last 3 days. The patient does have a past medical history significant for COPD and is on 2 L nasal cannula at home at baseline. In the ER, the patient was given 500 mL bolus of normal saline, 5 mg albuterol and Solu-Medrol, as well as a DuoNeb treatment. The patient remained mildly stable and was never hypoxic in the ER. A chest x-ray showed emphysema, but no active abnormalities present. The patient was found to have potassium of 5.6 and was given Lasix, as well as Kayexalate to treat this. There were no EKG changes. The patient was thought to be in a mild CHF exacerbation and was given a dose of Lasix. She had an echo that showed the above findings. The patient's COPD and other chronic conditions remained stable throughout her stay. Her symptoms improved the day after arrival. The patient was discharged back to home, where she lives with family. DISPOSITION: 1. Location: Home. 2. Activity: Ad chay. 3. Diet: Regular with shakes as needed. 4. Followup: Follow up with PCP, Dr. Ordonez, within 7 days. Job ID: [id number] MTDD
== END 2019-07-09 17:27 | disposition home or self-care (01) ==
LOC: ERS 17:36 → ERHOLD 21:11 → 2SW 07-09 15:58
PROVIDERS: ADMIT Student in an Organized Health Care Education/Training Program; ATTEND Student in an Organized Health Care Education/Training Program
DX: E87.5 Hyperkalemia (principal); I13.0 Hypertensive heart and chronic kidney disease with heart failure and stage 1 through stage 4 chronic kidney disease, or unspecified chronic kidney disease; N18.3 Chronic kidney disease, stage 3 (moderate); I50.9 Heart failure, unspecified; J44.1 Chronic obstructive pulmonary disease with (acute) exacerbation; N17.9 Acute kidney failure, unspecified; K21.9 Gastro-esophageal reflux disease without esophagitis; E78.5 Hyperlipidemia, unspecified; Z87.891 Personal history of nicotine dependence; Z66 Do not resuscitate
CPT/HCPCS: 36415; 71045; 80048; 80053; 83880; 84484; 85025; 87804; 93005; 93306; 94640; 96372; 96374; G0378; J1644; J1940; J2930; J7611; J7620

== ENCOUNTER 2019-12-10 18:38 | Emergency (ER) | payer MEDICARE, MEDICAID ==
[~2019-12-10 18:38] MED LIST: EPINEPHrine 1 MG/10 ML Abboject SYRINGE ONE; Sodium Bicarb 50 MEQ/50 ML Abboject 8.4% SYRINGE ONE
== END 2019-12-10 18:45 | disposition expired ==
LOC: ERS 18:38
DX: I46.9 Cardiac arrest, cause unspecified (principal)
CPT/HCPCS: 96374; 96375; J0171